=== PATIENT | female | born 1955 | race American Indian/Alaskan Native ===

== ENCOUNTER 2017-06-06 09:52 | Day surgery (SDC) | payer MEDICARE, OTHER ==
[2017-03-07 06:20] VITALS: BMI 25.1
[2017-06-06] MEDS ORDERED: Midazolam 2 MG/2 ML VIAL ONE (10:43)
[2017-06-06] MEDS ORDERED: Propofol 10 mg/ml Inj (20 ML) ONE (10:43)
[2017-06-06] MEDS ORDERED: ceFAZolin IV 2 gm in Dextrose 0 GM/0 ML BAG IVPB ONE ×2 (10:50→11:27)
[2017-06-06 10:54] VITALS: O2SAT 100
[2017-06-06] MEDS ORDERED: Lidocaine 1%/Epinephrine 1:100000 30 ml vial IJ STA (11:01)
[2017-06-06] MEDS ORDERED: Lactated Ringer's 1,000 ML IV ONE (11:06)
[2017-06-06] MEDS: Bupivacaine HCl 0.5% PF (10 ml) Inj ONE ×2 (11:07→11:40)
[2017-06-06] MEDS ORDERED: Bupivacaine HCl 0.5% PF (10 ml) Inj ONE (11:28)
[2017-06-06] MEDS: Lidocaine 1% Inj (20ml) ONE ×2 (11:40→11:59)
[2017-06-06 12:25] VITALS: BP 159/89; PULSE 60; RESP 18; TEMP 97
--- NOTE | 2017-06-06 13:31 | PCM.SURG1 ---
Surgeon's Initial Post Op Note - Surgeon's Notes Surgeon: Kerri Sculpture Instructor: Apolonia Shanks Pre-Operative Diagnosis: Left Thigh mass, R hip mass Operative Findings: see operative report Post-Operative Diagnosis: same Operation Performed: Excision of Left Thigh mass; Excision of Right Hip mass Specimen/Specimens Removed: left thigh mass; Right hip mass Estimated Blood Loss: EBL {In ML}: 10 Blood Products Given: N/A Drains Used: No Drains Post-Op Condition: Good Date of Surgery/Procedure: 06/06/17 Time of Surgery/Procedure: 13:30
--- NOTE | 2017-06-08 13:36 | OP ---
PROCEDURE DATE: 06/06/2017 PREOPERATIVE DIAGNOSES: 1. Left inner upper thigh mass. 2. Right hip skin tag. POSTOPERATIVE DIAGNOSES: 1. Left inner upper thigh mass. 2. Right hip skin tag. PROCEDURE DONE: 1. Excision of the left inner upper thigh mass, approximately 4 x 3 cm, pedunculated. 2. Excision of the skin tag of right hip. SURGEON: The procedure was done by Tashi carroll MD. FINANCE ADMIN: None. TYPE OF ANESTHESIA: Local anesthesia with monitored anesthesia. INTRAOPERATIVE FINDINGS: The patient had approximately 4 x 3 cm pedunculated mass of the left inner upper thigh and the patient also had a 1 x 1 cm right hip skin tag. ESTIMATED BLOOD LOSS: Around 10 mL. COMPLICATIONS: None. PATHOLOGY: 1. The left thigh pedunculated mass was sent for the pathology. 2. Right hip skin tag was sent for the pathology. DESCRIPTION OF PROCEDURE: On intraoperative steps, this 61-year-old female was diagnosed with a left thigh mass as well as a right hip skin tag and the patient was consented for the excision of the left thigh mass as well as the right hip skin tag. Brought to the OR, placed supine on the operating table. After monitored anesthesia, the left thigh as well as the right hip were prepped and draped in the usual sterile fashion. The local anesthesia was injected and elliptical incision was made surrounding the left thigh pedunculated mass of approximately 3 x 2 cm size. Upper and lower flap was created and then dissection was carried down deep in the subcutaneous tissue and the mass was completely excised and it was sent off the table for the pathology. The wound was irrigated and the wound was closed in 2 layers, subcu with a 2-0 Vicryl, skin with a 4-0 Monocryl. Dry sterile dressing was applied and now the elliptical incision was made surrounding the right hip skin tag and the skin tag was excised and wound was closed in 2 layers, subcu with a 2-0 Vicryl, skin with a 4-0 Monocryl. Dry sterile dressing was applied. The patient tolerated the procedure well. Count of the instrument and gauze was correct. There was no apparent complication. The patient was sent to the Postanesthesia Care Unit in stable condition. Tashi Manning MD [facility] # [id number]
== END 2017-06-06 13:20 | disposition home or self-care (01) ==
LOC: C.SDS 09:52
PROVIDERS: ATTEND Surgery Surgical Critical Care
DX: D23.72 Other benign neoplasm of skin of left lower limb, including hip (principal); L91.8 Other hypertrophic disorders of the skin; R22.9 Localized swelling, mass and lump, unspecified

== ENCOUNTER 2017-07-11 13:52 | Inpatient (IN) | payer MEDICARE, OTHER ==
[2017-07-11 13:52] VITALS: BMI 25.1
--- NOTE | 2017-07-11 15:21 | C.PDOC ---
History Of Present Illness 61 year old female presents to the ED referred by Dr. Ahumada for possible need for transfusion. Patient had blood work done on Sunday because she was c/o generalized weakness for a week. Patient was advised today to come to the ED but she does not know her blood values. Patient resumed taking epogen too it today and states she feels a little better. Patient has had prior transfusions due to her dialysis. Patient denies fever, chills, nausea, vomit, diarrhea, CP, SOB, headache. Time Seen by Provider: 07/11/17 15:16 Chief Complaint (Nursing): Abnormal Labs History Per: Patient History/Exam Limitations: no limitations Onset/Duration Of Symptoms: Days Current Symptoms Are (Timing): Still Present Reports Recently: Treated By A Physician () Recent travel outside of the [place] States: No Additional History Per: Patient Past Medical History Reviewed: Historical Data, Nursing Documentation, Vital Signs Vital Signs: Last Vital Signs Temp 98.5 F 07/11/17 14:47 Pulse 84 07/11/17 14:47 Resp 20 07/11/17 14:47 BP 148/79 07/11/17 14:47 Pulse Ox 100 07/11/17 16:56 - Medical History PMH: Anemia, Diabetes, HTN, Hypercholesterolemia, Hyperthyroidism, End Stage Renal Disease (peritoneal dialysis daily), Chronic Kidney Disease Surgical History: No Surg Hx - [facility] Procedures BREAST DX PROCEDURE NEC (01/20/14) CENTRAL VENOUS CATHETER PLACEMENT WITH GUIDANCE (03/10/13) COLONOSCOPY (09/02/14) CREATE CUTANPERITON FIST (03/10/13) DX ULTRASOUND-THORAX NEC (02/24/14) HEMODIALYSIS (03/10/13) LOCAL EXCIS BREAST LES (02/24/14) MYRINGOTOMY W INTUBATION (02/10/15) PACKED CELL TRANSFUSION (03/10/13) PERCUTAN NEEDLE BIOPSY OF BREAST (01/20/14) Family History: States: Hypertension - Social History Hx Tobacco Use: No Hx Alcohol Use: No Hx Substance Use: No - Immunization History Hx Tetanus Toxoid Vaccination: No Hx Influenza Vaccination: Yes Hx Pneumococcal Vaccination: Yes Review Of Systems Constitutional: Positive for: Weakness. Negative for: Fever, Chills Cardiovascular: Negative for: Chest Pain, Palpitations Respiratory: Negative for: Cough, Shortness of Breath Gastrointestinal: Negative for: Nausea, Vomiting, Abdominal Pain Skin: Negative for: Rash Neurological: Negative for: Weakness, Numbness, Headache, Dizziness Physical Exam - Physical Exam Appears: Non-toxic, No Acute Distress Skin: Normal Color, Warm, Dry Head: Atraumatic, Normacephalic Eye(s): bilateral: Normal Inspection Nose: No Discharge, No Deformity Oral Mucosa: Moist Neck: Normal ROM, Supple Chest: Symmetrical Cardiovascular: Rhythm Regular, No Murmur Respiratory: Normal Breath Sounds, No Rales, No Rhonchi, No Wheezing Gastrointestinal/Abdominal: Soft, No Tenderness, No Guarding, No Rebound Extremity: Normal ROM, No Pedal Edema, No Calf Tenderness, No Deformity, No Swelling Neurological/Psych: Oriented x3, Normal Speech, Normal Cognition Gait: Steady ED Course And Treatment - Laboratory Results Result Diagrams: 07/11/17 15:38 07/11/17 16:13 ECG: Interpreted By Me ECG Rhythm: Sinus Rhythm ECG Interpretation: Normal Interpretation Of ECG: QTC 483 Rate From EC O2 Sat by Pulse Oximetry: 100 (On RA) Pulse Ox Interpretation: Normal - Radiology CXR: Interpreted by Me CXR Interpretation: Yes: No Acute Disease Progress - Re-Evaluation Re-evaluation Note: 07/11/17 16:49 D/W DR ESCALANTE AWARE OF ER FINDINGS. REQUESTS CONSULT DR AHUMADA FOR COORDINATE OF PERITONEAL HD AND TRANSFUSION. PS LAST PERITONEAL HD 07/09, STATES DID NOT DO IT DUE TO LAXATIVE USE. CONSULT DR MEEHAN IF NEEDED 07/11/17 17:01 D/W DR AHUMADA AWARE OF ER FINDINGS. RECOMMENDS 1U PRBC MAX. PT TO RESUME HD ROUTINE UPON DC HOME. D/W DR HEMPHILL, AWARE OF DR AHUMADA RECOMMENDATION - Data Reviewed Data Reviewed: Lab, Diagnostic imaging, EKG, Old records Medical Decision Making Medical Decision Making: Impression : possible blood transfusion 16:53 - Dr. Ahumada was called Disposition Counseled Patient/Family Regarding: Studies Performed, Diagnosis - Disposition Disposition: HOSPITALIZED Disposition Time: 16:54 Condition: STABLE Instructions: Weakness (ED) Forms: [facility] ([place]ese) - POA Present On Arrival: None - Clinical Impression Clinical Impression: Severe anemia, Generalized weakness, ESRD (end stage renal disease) - Scribe Statement The provider has reviewed the documentation as recorded by the Scribe Severiano John All medical record entries made by the Scribe were at my direction and personally dictated by me. I have reviewed the chart and agree that the record accurately reflects my personal performance of the history, physical exam, medical decision making, and the department course for this patient. I have also personally directed, reviewed, and agree with the discharge instructions and disposition. Decision To Admit - Pt Status Changed To: Hospital Disposition Of: Observation - . Bed Request Type: Regular Admitting Physician: Kartik Hemphill Patient Diagnosis: Severe anemia, Generalized weakness, ESRD (end stage renal disease)
[2017-07-11 15:46] LABS: MEAN CELL VOLUME 87.2 fL (81.0-99.0); MEAN CORPUSCULAR HEMOGLOBIN 28.7 pg (27.0-31.0); MEAN CORPUSCULAR HGB CONC 32.9 g/dL (33.0-37.0); MEAN PLATELET VOLUME 7.7 fL (7.2-11.7); RBC 2.04 Mil/uL (3.80-5.20); RED CELL DISTRIBUTION WIDTH 17.1 % (11.5-14.5)
[2017-07-11 15:53] LABS: HEMOGLOBIN 5.9 g/dL (11.0-16.0); WHITE BLOOD COUNT 11.1 K/uL (4.8-10.8)
[2017-07-11 16:36] LABS: CALCIUM 9.5 mg/dl (8.6-10.4)
--- NOTE | 2017-07-11 17:24 | RAD ---
HISTORY: MED CLEAR COMPARISON: Chest x-ray performed 11/03/16 TECHNIQUE: Chest, one view. FINDINGS: LUNGS: No focal consolidation. Scattered nodular densities may reflect granulomas versus nodules versus prominent vessels on end. Please note that chest x-ray has limited sensitivity for the detection of pulmonary masses. PLEURA: No significant pleural effusion identified. No definite pneumothorax . CARDIOVASCULAR: Cardiomegaly. Dense atherosclerotic calcifications of the aortic knob. OSSEOUS STRUCTURES: Degenerative changes. VISUALIZED UPPER ABDOMEN: Unremarkable. OTHER FINDINGS: None. IMPRESSION: Cardiomegaly. Dense atherosclerotic calcifications of the aortic knob. No focal consolidation, significant pleural effusion, or definite pneumothorax identified. Tiny scattered nodular densities may reflect nodules, granulomas, prominent vessels on end.
[2017-07-12 05:33] LABS: BASO % 0.3 % (0.0-2.0); EOS # 0.3 K/uL (0.0-0.7); LYMPH # 1.9 K/uL (1.0-4.3); LYMPH % 19.9 % (20.0-40.0); MEAN CELL VOLUME 87.7 fL (81.0-99.0); MEAN CORPUSCULAR HEMOGLOBIN 29.9 pg (27.0-31.0); MEAN CORPUSCULAR HGB CONC 34.1 g/dL (33.0-37.0); MEAN PLATELET VOLUME 7.8 fL (7.2-11.7); MONO # 1.1 K/uL (0.0-0.8); MONO % 11.5 % (0.0-10.0); NEUT # 6.2 K/uL (1.8-7.0); NEUT % 65.3 % (50.0-75.0); NRBC % 0.5 % (0.0-2.0); RBC 2.18 Mil/uL (3.80-5.20); RED CELL DISTRIBUTION WIDTH 15.8 % (11.5-14.5); WHITE BLOOD COUNT 9.6 K/uL (4.8-10.8)
[2017-07-12 05:56] LABS: HEMOGLOBIN 6.5 g/dL (11.0-16.0)
[2017-07-12] MEDS ORDERED: [UNRECOGNIZED DRUG - OTHER] PO SCH (10:00)
[2017-07-12] MEDS ORDERED: Sodium Citrate/Citric Acid 15 ml Sol PO PRN (10:00)
[2017-07-12] MEDS ORDERED: SODIUM BICARBONATE PO SCH (10:00)
--- NOTE | 2017-07-12 10:07 | CP.PCM.CON ---
History of Present Illness - History of Present Illness History of Present Illness: 61 year old female presents to the ED referred by Dr. Perkins for possible need for transfusion. Patient had blood work done on Sunday because she was c/o generalized weakness for a week. Patient was advised today to come to the ED but she does not know her blood values. Patient resumed taking epogen too it today and states she feels a little better. Patient has had prior transfusions due to her dialysis. Patient denies fever, chills, nausea, vomit, diarrhea, CP, SOB, headache. PMH: HTN NEPHROSCLEROSIS DM 2 SEC HPT PSH: PD CATH INSERTION Received 1 unit prbc blood transfusion in ER Needs resumption of PD and PIEDAD restart Review of Systems - Review of Systems All systems: reviewed and no additional remarkable complaints except - Constitutional Constitutional: Lethargy, Weakness - EENT Eyes: absent: As Per HPI, Blind Spots, Blurred Vision, Change in Vision, Decreased Night Vision, Diplopia, Discharge, Dry Eye, Exophthalmos, Floaters, Irritation, Itchy Eyes, Loss of Peripheral Vision, Pain, Photophobia, Requires Corrective Lenses, Sees Flashes, Spots in Vision, Tunnel Vision, Other Visual Disturbances, Loss of Vision, Other Ears: absent: As Per HPI, Decreased Hearing, Ear Discharge, Ear Pain, Tinnitus, Abnormal Hearing, Disequilibrium, Dizziness, Other Nose/Mouth/Throat: absent: As Per HPI, Epistaxis, Nasal Congestion, Nasal Discharge, Nasal Obstruction, Nasal Trauma, Nose Pain, Post Nasal Drip, Sinus Pain, Sinus Pressure, Bleeding Gums, Change in Voice, Dental Pain, Dry Mouth, Dysphagia, Halitosis, Hoarsness, Lip Swelling, Mouth Lesions, Mouth Pain, Odynophagia, Sore Throat, Throat Swelling, Tongue Swelling, Facial Pain, Neck Pain, Neck Mass, Other - Cardiovascular Cardiovascular: absent: As Per HPI, Acrocyanosis, Chest Pain, Chest Pain at Rest , Chest Pain with Activity, Claudication, Diaphoresis, Dyspnea, Dyspnea on Exertion, Edema, Irregular Heart Rhythm, Pain Radiating to Arm/Neck/Jaw, Leg Edema, Leg Ulcers, Lightheadedness, Orthopnea, Palpitations, Paroxysmal Nocturnal Dyspnea, Pedal Edema, Radiating Pain, Rapid Heart Rate, Slow Heart Rate, Syncope, Other - Respiratory Respiratory: absent: As Per HPI, Cough, Dyspnea, Hemoptysis, Dyspnea on Exertion , Wheezing, Snoring, Stridor, Pain on Inspiration, Chest Congestion, Excessive Mucous Production, Change in Mucous Color, Pain with Coughing, Other - Gastrointestinal Gastrointestinal: Constipation - Musculoskeletal Musculoskeletal: Muscle Cramps, Muscle Weakness, Myalgias - Neurological Neurological: Weakness Past Patient History - Past Medical History & Family History Past Medical History?: Yes Pertinent Family History: aunt exp- was on dialysis - Past Social History Smoking Status: Never Smoked Chewing Tobacco Use: No Cigar Use: No Alcohol: None Drugs: Denies Home Situation {Lives}: With Family - CARDIAC Hx Hypercholesterolemia: Yes Hx Hypertension: Yes - PULMONARY Hx Respiratory Disorders: No - NEUROLOGICAL Hx Neurological Disorder: No - HEENT Hx HEENT Problems: No Other/Comment: otitis media - RENAL Hx Chronic Kidney Disease: Yes - ENDOCRINE/METABOLIC Hx Hyperthyroidism: Yes - HEMATOLOGICAL/ONCOLOGICAL Hx Anemia: Yes - INTEGUMENTARY Hx Dermatological Problems: Yes Other/Comment: HX: LEFT THIGH MASS - MUSCULOSKELETAL/RHEUMATOLOGICAL Hx Musculoskeletal Disorders: Yes Other/Comment: HX:HAMMER TOES 2ND, 3RD LEFT FOOT - GASTROINTESTINAL Hx Gastrointestinal Disorders: No Other/Comment: peritoneal dialysis - GENITOURINARY/GYNECOLOGICAL Hx Genitourinary Disorders: No Other/Comment: renal failure - PSYCHIATRIC Hx Substance Use: No - SURGICAL HISTORY Other/Comment: left breast, left foot. tubes both ears. HX: ARTHROPLASTY 2ND AND 3RD LEFT TOES - ANESTHESIA Hx Anesthesia: Yes Hx Anesthesia Reactions: No Hx Malignant Hyperthermia: No Meds Allergies/Adverse Reactions: Allergies Allergy/AdvReac Type Severity Reaction Status Date / Time No Known Allergies Allergy Verified 07/11/17 14:49 - Medications Medications: Current Medications Calcitriol (Rocaltrol) 0.25 mcg PO DAILY [facility] Calcium Acetate (Phoslo) 667 mg PO TID [facility] Last Admin: 07/12/17 09:36 Dose: 667 mg Cinacalcet (Sensipar) 60 mg PO DAILY [facility] Last Admin: 07/12/17 09:32 Dose: 60 mg Citric Acid/Sodium Citrate (Bicitra 334 Mg/5 Ml-500 Mg) 15 ml PO BID PRN PRN Reason: Heartburn Last Admin: 07/12/17 09:32 Dose: 15 ml Folic Acid (Folic Acid) 1 mg PO DAILY [facility] Last Admin: 07/12/17 09:32 Dose: 1 mg Hydralazine HCl (Apresoline) 50 mg PO BID [facility] Last Admin: 07/12/17 09:31 Dose: 50 mg Vitamin B Complex/Vit C/Folic Acid (Nephro-Merle) 1 tab PO DAILY [facility] Zolpidem Tartrate (Ambien) 5 mg PO HS PRN PRN Reason: Insomnia Physical Exam - Constitutional Appears: No Acute Distress, Chronically Ill - Head Exam Head Exam: ATRAUMATIC, NORMAL INSPECTION - Eye Exam Eye Exam: EOMI, Normal appearance - Neck Exam Neck exam: Positive for: Normal Inspection. Negative for: Tenderness - Respiratory Exam Respiratory Exam: Clear to Auscultation Bilateral, NORMAL BREATHING PATTERN - Cardiovascular Exam Cardiovascular Exam: REGULAR RHYTHM, +S1 - GI/Abdominal Exam GI & Abdominal Exam: Soft. absent: Tenderness - Extremities Exam Extremities exam: Positive for: normal inspection. Negative for: tenderness - Neurological Exam Neurological exam: CN II-XII Intact, Oriented x3 - Psychiatric Exam Psychiatric exam: Normal Affect - Skin Skin Exam: Dry, Warm Results - Vital Signs Recent Vital Signs: Last Vital Signs Temp 98.1 F 07/12/17 07:38 Pulse 85 07/12/17 07:38 Resp 18 07/12/17 07:38 BP 170/80 H 07/12/17 07:38 Pulse Ox 96 07/12/17 07:38 - Labs Result Diagrams: 07/12/17 05:22 07/11/17 16:13 Labs: Laboratory Results - last 24 hr 07/11/17 07/11/17 07/11/17 15:38 16:13 16:13 WBC 11.1 H D RBC 2.04 L Hgb 5.9 L* D Hct 17.8 L MCV 87.2 MCH 28.7 MCHC 32.9 L RDW 17.1 H Plt Count 234 MPV 7.7 Neut % (Auto) Lymph % (Auto) [place] % (Auto) Eos % (Auto) Baso % (Auto) Neut # Lymph # [place] # Eos # Baso # Sodium 132 Potassium 4.4 Chloride 90 L Carbon Dioxide 25 Anion Gap 21 H BUN 61 H Creatinine 18.3 H* Est GFR ( Amer) 2 Est GFR (Non-Af Amer) 2 Random Glucose 83 Calcium 9.5 Iron Vitamin B12 Stool Occult Blood Blood Type O POSITIVE Antibody Screen Negative 07/11/17 07/12/17 07/12/17 17:13 05:22 05:22 WBC 9.6 RBC 2.18 L Hgb 6.5 L* Hct 19.2 L MCV 87.7 MCH 29.9 MCHC 34.1 RDW 15.8 H Plt Count 201 MPV 7.8 Neut % (Auto) 65.3 Lymph % (Auto) 19.9 L [place] % (Auto) 11.5 H Eos % (Auto) 3.0 Baso % (Auto) 0.3 Neut # 6.2 Lymph # 1.9 [place] # 1.1 H Eos # 0.3 Baso # 0.0 Sodium Potassium Chloride Carbon Dioxide Anion Gap BUN Creatinine Est GFR ( Amer) Est GFR (Non-Af Amer) Random Glucose Calcium Iron 112 Vitamin B12 Stool Occult Blood Negative Blood Type Antibody Screen 07/12/17 05:22 WBC RBC Hgb Hct MCV MCH MCHC RDW Plt Count MPV Neut % (Auto) Lymph % (Auto) [place] % (Auto) Eos % (Auto) Baso % (Auto) Neut # Lymph # [place] # Eos # Baso # Sodium Potassium Chloride Carbon Dioxide Anion Gap BUN Creatinine Est GFR ( Amer) Est GFR (Non-Af Amer) Random Glucose Calcium Iron Vitamin B12 > 1000 H Stool Occult Blood Blood Type Antibody Screen Assessment & Plan (1) Secondary hyperparathyroidism Status: Acute (2) ESRD (end stage renal disease) Status: Acute - Assessment and Plan (Free Text) Plan: Resume PD restart ESAs check iron stores
--- NOTE | 2017-07-12 12:35 | CARD ---
APPROVED REPORT EKG Measurement Heart [id number] <Conclusion> Normal sinus rhythm Prolonged QT Abnormal ECG
--- NOTE | 2017-07-12 13:38 | CP.PCM.PN ---
Subjective - Date & Time of Evaluation Date of Evaluation: 07/12/17 Time of Evaluation: 12:15 - Subjective Subjective: NOTIFIED BY PRIMARY RN PAT THAT PT'S SBP 200. REVIEWED VITALS FROM THIS MORNING AND THIS IS NOT DOCUMENTED YET. PT CURRENTLY TAKING HYDRALAZINE PO, WHICH SHE IS NOT TOLERATING AT THIS TIME. PT ALSO SEEN BY DR. AHUMADA SHE IS ON PD; HE IS NOT RECOMMENDING FURTHER TRANSFUSION YET; TO RESTART HER PD; PT WAITING FOR FAMILY TO BRING HER EQUIPMENT FROM HOME. HGB TODAY 6.5; REVIEWED PREVIOUS LABS AND THIS IS THE FIRST TIME PT HAS HGB SO LOW. I LEFT MESSAGE FOR DR. CHOWDHURY REGARDING ADDITIONAL BP MEDICATIONS AND POSS HEMATOLOGY CONSULT. WILL F/U. Objective - Vital Signs/Intake and Output Vital Signs (last 24 hours): Temp Pulse Resp BP Pulse Ox 98.1 F 85 18 170/80 H 96 07/12/17 07:38 07/12/17 07:38 07/12/17 07:38 07/12/17 07:38 07/12/17 07:38 - Medications Medications: Current Medications Calcitriol (Rocaltrol) 0.25 mcg PO DAILY [facility] Calcium Acetate (Phoslo) 667 mg PO TID [facility] Last Admin: 07/12/17 09:36 Dose: 667 mg Cinacalcet (Sensipar) 60 mg PO DAILY [facility] Last Admin: 07/12/17 09:32 Dose: 60 mg Citric Acid/Sodium Citrate (Bicitra 334 Mg/5 Ml-500 Mg) 15 ml PO BID PRN PRN Reason: Heartburn Last Admin: 07/12/17 09:32 Dose: 15 ml Epoetin Raheem (Procrit) 10,000 unit SC TTS [facility] Folic Acid (Folic Acid) 1 mg PO DAILY [facility] Last Admin: 07/12/17 09:32 Dose: 1 mg Hydralazine HCl (Apresoline) 50 mg PO BID [facility] Last Admin: 07/12/17 09:31 Dose: 50 mg Vitamin B Complex/Vit C/Folic Acid (Nephro-Merle) 1 tab PO DAILY [facility] Zolpidem Tartrate (Ambien) 5 mg PO HS PRN PRN Reason: Insomnia - Labs Labs: 07/12/17 05:22 07/11/17 16:13
--- NOTE | 2017-07-12 15:14 | PCM.RRT ---
C[employer] STORAGE WORKER Nurses Assessment - Situation Date: 07/12/17 Time COLD STORAGE WORKER was called: 13:16 COLD STORAGE WORKER Responder Arrival Time:: 13:18 COLD STORAGE WORKER Location:: I ICU COLD STORAGE WORKER Reason for Call: Hypertension COLD STORAGE WORKER Called By: RN - IV IV Inserted during COLD STORAGE WORKER?: No IV Fluids Initiated During COLD STORAGE WORKER?: no, hep lock in place - Respiratory COLD STORAGE WORKER Delivery Method: Room Air Received Nebulizer Treatments: No Was the Patient Ventilated with Bag/Mask 100% O2?: No Secretions Suctioned?: No Was the Patient Intubated?: No Was the Patient Placed on a Ventilator?: No - Medication Medications Administered During COLD STORAGE WORKER: hydralazine 10mg IV push x 2 doses - Diagnostic Test Ordered EKG: No Chest X-Ray: No CT Scan: No CPR started during COLD STORAGE WORKER?: No - Vital Signs Vital Signs: Rapid Response Vital Sign Blood Pressure 229/116 Pulse Rate 92 Respiratory Rate 18 Temperature 97.9 F Oxygen Saturation 95 - Time COLD STORAGE WORKER Ended Time COLD STORAGE WORKER Ended: 15:05 - Vital Signs at end of COLD STORAGE WORKER Vital Signs at end of COLD STORAGE WORKER: Rapid Response End Vital Sign Blood Pressure 190/92 Pulse Rate 80 Respiratory Rate 18 Temperature 97.8 F O2 Sat by Pulse Oximetry 96 - Recommendations Notifications: Attending Physician I.Reason for COLD STORAGE WORKER - A) Acute Change in Patient: (Select all that apply): Staff member or family is worried about patient - Neurological Status (Select all that apply): Alert, Responsive, Oriented, Verbal, Follows Commands - Respiratory Oxygen Delivery Method: Room Air - Constitutional Appears: Well, No Acute Distress - Head Head Exam: ATRAUMATIC, NORMOCEPHALIC - Eyes Eye Exam: EOMI, Normal appearance - Respiratory Exam Respiratory Exam: Clear to Ausculation Bilateral, NORMAL BREATHING PATTERN. absent: Rales, Rhonchi, Wheezes - Cardiovascular Exam Cardiovascular Exam: REGULAR RHYTHM, +S1, +S2. absent: Tachycardia - GI/Abdominal Exam GI & Abdominal Exam: Soft, Normal Bowel Sounds. absent: Distended, Tenderness Additional comments: PD dialysis catheter site on right side of the abdomen. No evidence of infection noted. - Neurological Exam Neurological Exam: Alert, Awake, CN II-XII Intact, Oriented x3 - Extremities Exam Extremities Exam: absent: Tenderness Plan - Assessment of Findings&Treatment Plan This is a 61 year old lady on daily peritoneal dialysis who has missed 2 days of dialysis after being admitted to the hospital. COLD STORAGE WORKER called for hypertensive episode as noted above. Patient with no acute distress. Denies headache, changes in vision, chest pain, dyspnea. Patient's brought the equipment for peritoneal dialysis but forgot some of the peripheral devices. He will go retrieve them. Patient given 2 pushes of Hydralazine 10 mg IV. Blood pressure reduced since the start of the rapid. Admitting attending Dr. Hemphill was notified of events and stated that he will take over from here as of 15:05.
[2017-07-12 17:22] LABS: FOLATE > 20.0 ng/mL
[2017-07-12] MEDS: Multivitamin Vitamin B Complex (Nephro-Vite) Tab PO SCH (18:12)
--- NOTE | 2017-07-12 19:00 | CP.PCM.CON ---
History of Present Illness - History of Present Illness History of Present Illness: ASked to see pt for anemia. Pt reports was on epogen til 3 months ago. On epogen, Hb was 12. Off epogen, Hb is going down. To 5-6. Denies SOB, fever, abdom pain, melena, RB. Occ constip Colonsocopy 2014- neg Sister is present Review of Systems - Constitutional Constitutional: Fatigue. absent: Fever - EENT Eyes: absent: Photophobia Nose/Mouth/Throat: absent: Lip Swelling - Cardiovascular Cardiovascular: absent: Dyspnea, Palpitations - Respiratory Respiratory: absent: Hemoptysis, Wheezing - Gastrointestinal Gastrointestinal: Constipation. absent: Abdominal Pain, Diarrhea, Hematemesis, Hematochezia, Loose Stools, Melena, Nausea, Vomiting - Genitourinary Genitourinary: absent: Hematuria - Musculoskeletal Musculoskeletal: absent: Muscle Cramps - Integumentary Integumentary: absent: Jaundice - Neurological Neurological: absent: Convulsions Past Patient History - Past Medical History & Family History Past Medical History?: Yes - Past Social History Smoking Status: Former Smoker - CARDIAC Hx Hypercholesterolemia: Yes Hx Hypertension: Yes - PULMONARY Hx Respiratory Disorders: No - NEUROLOGICAL Hx Neurological Disorder: No - HEENT Hx HEENT Problems: No Other/Comment: otitis media - RENAL Hx Chronic Kidney Disease: Yes Type of Dialysis Access: peritoneal dialysis Date of Last Dialysis Treatment: 07/09/17 Hx Renal Failure: Yes - ENDOCRINE/METABOLIC Hx Diabetes Mellitus Type 2: Yes Hx Hyperthyroidism: Yes Other/Comment: states thyroid problem is under control without medication - HEMATOLOGICAL/ONCOLOGICAL Hx Anemia: Yes Hx Blood Transfusions: Yes - INTEGUMENTARY Hx Dermatological Problems: Yes Other/Comment: HX: LEFT THIGH MASS surgically removed. - MUSCULOSKELETAL/RHEUMATOLOGICAL Hx Falls: No - GASTROINTESTINAL Hx Gastrointestinal Disorders: No Other/Comment: peritoneal dialysis - GENITOURINARY/GYNECOLOGICAL Hx Genitourinary Disorders: No Other/Comment: renal failure - PSYCHIATRIC Hx Psychophysiologic Disorder: No Hx Substance Use: No - SURGICAL HISTORY Hx Breast Biopsy: Yes (fatty tissue) Hx Vascular Surgery: Yes (stent placement rt leg) Other/Comment: left breast, left foot. tubes both ears. HX: ARTHROPLASTY 2ND AND 3RD LEFT TOES. Peritoneal dialysis catheter placement 5 years ago - ANESTHESIA Hx Anesthesia: Yes Hx Anesthesia Reactions: No Hx Malignant Hyperthermia: No Meds Allergies/Adverse Reactions: Allergies Allergy/AdvReac Type Severity Reaction Status Date / Time No Known Allergies Allergy Verified 07/11/17 14:49 - Medications Medications: Current Medications Calcitriol (Rocaltrol) 0.25 mcg PO DAILY [facility] Last Admin: 07/12/17 18:12 Dose: 0.25 mcg Calcium Acetate (Phoslo) 667 mg PO TID [facility] Last Admin: 07/12/17 18:13 Dose: 667 mg Cinacalcet (Sensipar) 60 mg PO DAILY [facility] Last Admin: 07/12/17 09:32 Dose: 60 mg Citric Acid/Sodium Citrate (Bicitra 334 Mg/5 Ml-500 Mg) 15 ml PO BID PRN PRN Reason: Heartburn Last Admin: 07/12/17 09:32 Dose: 15 ml Epoetin Raheem (Procrit) 10,000 unit SC TTS [facility] Folic Acid (Folic Acid) 1 mg PO DAILY [facility] Last Admin: 07/12/17 09:32 Dose: 1 mg Hydralazine HCl (Apresoline) 50 mg PO BID [facility] Last Admin: 07/12/17 18:12 Dose: 50 mg Metoprolol Tartrate (Lopressor) 50 mg PO DAILY [facility] Vitamin B Complex/Vit C/Folic Acid (Nephro-Merle) 1 tab PO DAILY [facility] Last Admin: 07/12/17 18:12 Dose: 1 tab Zolpidem Tartrate (Ambien) 5 mg PO HS PRN PRN Reason: Insomnia Physical Exam - Constitutional Appears: Well - Respiratory Exam Respiratory Exam: Clear to Auscultation Bilateral - Cardiovascular Exam Cardiovascular Exam: RRR - GI/Abdominal Exam GI & Abdominal Exam: Normal Bowel Sounds, Soft. absent: Distended, Guarding, Mass, Rebound, Tenderness - Extremities Exam Extremities exam: Negative for: calf tenderness - Neurological Exam Neurological exam: Alert, Oriented x3 Results - Vital Signs Recent Vital Signs: Last Vital Signs Temp 98 F 07/12/17 15:50 Pulse 90 07/12/17 13:15 Resp 18 07/12/17 13:15 BP 229/116 H 07/12/17 13:15 Pulse Ox 96 07/12/17 13:15 - Labs Result Diagrams: 07/12/17 05:22 07/11/17 16:13 Labs: Laboratory Results - last 24 hr 07/11/17 07/12/17 07/12/17 16:13 05:22 05:22 WBC 9.6 RBC 2.18 L Hgb 6.5 L* Hct 19.2 L MCV 87.7 MCH 29.9 MCHC 34.1 RDW 15.8 H Plt Count 201 MPV 7.8 Neut % (Auto) 65.3 Lymph % (Auto) 19.9 L Spencer % (Auto) 11.5 H Eos % (Auto) 3.0 Baso % (Auto) 0.3 Neut # 6.2 Lymph # 1.9 Spencer # 1.1 H Eos # 0.3 Baso # 0.0 Retic Count Iron 112 % Saturation Ferritin Vitamin B12 Folate Blood Type O POSITIVE Antibody Screen Negative 07/12/17 07/12/17 07/12/17 05:22 15:57 15:57 WBC RBC Hgb Hct MCV MCH MCHC RDW Plt Count MPV Neut % (Auto) Lymph % (Auto) Spencer % (Auto) Eos % (Auto) Baso % (Auto) Neut # Lymph # Spencer # Eos # Baso # Retic Count Iron % Saturation 40 Ferritin 915.0 Vitamin B12 > 1000 H Folate Blood Type Antibody Screen 07/12/17 07/12/17 15:57 15:57 WBC RBC Hgb Hct MCV MCH MCHC RDW Plt Count MPV Neut % (Auto) Lymph % (Auto) Spencer % (Auto) Eos % (Auto) Baso % (Auto) Neut # Lymph # Spencer # Eos # Baso # Retic Count 3.3 H Iron % Saturation Ferritin Vitamin B12 > 1000 H Folate > 20.0 Blood Type Antibody Screen Assessment & Plan (1) Constipated Status: Acute (2) ESRD (end stage renal disease) Assessment and Plan: PD. Cr-18 Status: Acute (3) Severe anemia Assessment and Plan: Likely CRF. Better when on epogen. HAd colonsocopy 2014. Doubt ulcer, AVM. Pt wants to follow Hb and no EGD. REC: Protonix, check Hbs, check stool OB. Status: Acute
--- NOTE | 2017-07-13 08:34 | HP ---
HISTORY OF PRESENT ILLNESS: This is a 61-year-old female with history of end-stage renal disease, on peritoneal dialysis, was admitted for generalized weakness and found to have hemoglobin of 5 on admission. The patient was taking Epogen that was stopped during the last 3 months because of the patient's hemoglobin was around 12. The patient states that lately she has been experiencing generalized fatigue and shortness of breath for the minimal exertion. There is no symptom suggestive of any blood loss through GI or tract. The patient denied to have also any change in the color of the urine or the stool. Other review of systems is negative. ALLERGIES: No known allergy. MEDICATIONS: As per MAR. SOCIAL HISTORY: No history of smoking, EtOH or substance abuse. FAMILY HISTORY: Noncontributory. PAST MEDICAL HISTORY: Hypertension; type 2 diabetes mellitus; end-stage renal disease, on peritoneal dialysis. PHYSICAL EXAMINATION GENERAL: The patient is in bed comfortable at the time of this examination. VITAL SIGNS: Blood pressure 189/88, temperature 97.6, respiratory rate 18 and pulse 90. HEENT: Pupils equal, reactive to light. Pale mucosa of the conjunctivae. NECK: Supple. No JVD. No carotid bruit. No lymph node. No thyromegaly. CHEST AND LUNGS: Bilateral symmetrical expansion. Good air exchange. No rales, no rhonchi. CARDIOVASCULAR: PMI not localized. S1, S2. No additional sounds. ABDOMEN: Normoactive bowel sounds. No tenderness. No organomegaly. No masses. EXTREMITIES: No cyanosis, no clubbing, no edema. BENDER HELPER: Alert, awake, oriented x2. No neurological deficit could be appreciated. ASSESSMENT: 1. Severe anemia of chronic disease. 2. End-stage renal disease, on peritoneal dialysis. 3. Uncontrolled hypertension. PLAN: 1. Continue peritoneal dialysis. 2. Resume the patient's antihypertensive medications, renal consult and follow the recommendations. Kartik Hemphill MD
[2017-07-13 09:00] LABS: HEMOGLOBIN 6.9 g/dL (11.0-16.0); MEAN CELL VOLUME 88.1 fL (81.0-99.0); MEAN CORPUSCULAR HEMOGLOBIN 30.3 pg (27.0-31.0); MEAN CORPUSCULAR HGB CONC 34.4 g/dL (33.0-37.0); MEAN PLATELET VOLUME 7.6 fL (7.2-11.7); RBC 2.26 Mil/uL (3.80-5.20); RED CELL DISTRIBUTION WIDTH 15.9 % (11.5-14.5); WHITE BLOOD COUNT 8.9 K/uL (4.8-10.8)
[2017-07-13 09:24] LABS: CALCIUM 9.8 mg/dl (8.6-10.4)
[2017-07-13] MEDS: Multivitamin Vitamin B Complex (Nephro-Vite) Tab PO SCH (10:22)
--- NOTE | 2017-07-13 12:14 | CP.PCM.PN ---
Subjective - Date & Time of Evaluation Date of Evaluation: 07/13/17 Time of Evaluation: 12:12 - Subjective Subjective: CC: anemia Stool OB negative Normal Iron studies No overt GI bleeding or abdominal pain Objective - Vital Signs/Intake and Output Vital Signs (last 24 hours): Temp Pulse Resp BP Pulse Ox 98.5 F 117 H 18 161/77 H 100 07/13/17 08:00 07/13/17 08:33 07/13/17 08:00 07/13/17 08:00 07/13/17 06:00 Intake and Output: 07/13/17 07/13/17 06:59 18:59 Intake Total 150 460 Output Total 400 Balance -250 460 - Medications Medications: Current Medications Calcitriol (Rocaltrol) 0.25 mcg PO DAILY [facility] Last Admin: 07/13/17 10:22 Dose: 0.25 mcg Calcium Acetate (Phoslo) 667 mg PO TID [facility] Last Admin: 07/13/17 10:22 Dose: 667 mg Cinacalcet (Sensipar) 60 mg PO DAILY [facility] Last Admin: 07/13/17 10:28 Dose: 60 mg Citric Acid/Sodium Citrate (Bicitra 334 Mg/5 Ml-500 Mg) 15 ml PO BID PRN PRN Reason: Heartburn Last Admin: 07/12/17 09:32 Dose: 15 ml Epoetin Raheem (Procrit) 10,000 unit SC [facility] Folic Acid (Folic Acid) 1 mg PO DAILY [facility] Last Admin: 07/13/17 10:22 Dose: 1 mg Hydralazine HCl (Apresoline) 50 mg PO BID [facility] Last Admin: 07/13/17 10:22 Dose: 50 mg Metoprolol Tartrate (Lopressor) 50 mg PO DAILY [facility] Last Admin: 07/13/17 10:22 Dose: 50 mg Vitamin B Complex/Vit C/Folic Acid (Nephro-Merle) 1 tab PO DAILY [facility] Last Admin: 07/13/17 10:22 Dose: 1 tab Zolpidem Tartrate (Ambien) 5 mg PO HS PRN PRN Reason: Insomnia - Labs Labs: 07/13/17 08:55 07/13/17 08:55 - Constitutional Appears: Well, No Acute Distress - Head Exam Head Exam: NORMOCEPHALIC - Respiratory Exam Respiratory Exam: NORMAL BREATHING PATTERN - Cardiovascular Exam Cardiovascular Exam: REGULAR RHYTHM - GI/Abdominal Exam GI & Abdominal Exam: Soft. absent: Tenderness Assessment and Plan (1) ESRD (end stage renal disease) Assessment & Plan: Dialysis Status: Acute (2) Severe anemia Assessment & Plan: Secondary to chronic renal disease Colonoscopy done 2014 No immediate plans for EGD or Colonoscopy Status: Acute
[2017-07-13] MEDS ORDERED: Magnesium Hydroxide Susp 30 ml UD PO ONE (13:29)
[2017-07-13] MEDS ORDERED: DiphenhydrAMINE 12.5 mg/5 ml LIQ UD (5 ml) PO ONE (13:32)
--- NOTE | 2017-07-13 14:05 | CP.PCM.PN ---
Subjective - Date & Time of Evaluation Date of Evaluation: 07/13/17 Time of Evaluation: 14:02 - Subjective Subjective: PD ongoing- doing well Did not receive ordered EPO 07/12- will change to [facility] schedule c/o constipation Seen by GI- felt to have anemia related to CKD no other complaint Objective - Vital Signs/Intake and Output Vital Signs (last 24 hours): Temp Pulse Resp BP Pulse Ox 98.5 F 117 H 18 161/77 H 100 07/13/17 12:00 07/13/17 08:33 07/13/17 08:00 07/13/17 08:00 07/13/17 06:00 Intake and Output: 07/13/17 07/13/17 06:59 18:59 Intake Total 150 460 Output Total 400 Balance -250 460 - Medications Medications: Current Medications Calcitriol (Rocaltrol) 0.25 mcg PO DAILY [facility] Last Admin: 07/13/17 10:22 Dose: 0.25 mcg Calcium Acetate (Phoslo) 667 mg PO TID [facility] Last Admin: 07/13/17 13:50 Dose: 667 mg Cinacalcet (Sensipar) 60 mg PO DAILY [facility] Last Admin: 07/13/17 10:28 Dose: 60 mg Citric Acid/Sodium Citrate (Bicitra 334 Mg/5 Ml-500 Mg) 15 ml PO BID PRN PRN Reason: Heartburn Last Admin: 07/12/17 09:32 Dose: 15 ml Epoetin Raheem (Procrit) 10,000 unit SC [facility] [place] [facility] Folic Acid (Folic Acid) 1 mg PO DAILY [facility] Last Admin: 07/13/17 10:22 Dose: 1 mg Hydralazine HCl (Apresoline) 50 mg PO BID [facility] Last Admin: 07/13/17 10:22 Dose: 50 mg Lactulose (Enulose) 20 gm PO DAILY [facility] Metoprolol Tartrate (Lopressor) 50 mg PO DAILY [facility] Last Admin: 07/13/17 10:22 Dose: 50 mg Vitamin B Complex/Vit C/Folic Acid (Nephro-Merle) 1 tab PO DAILY [facility] Last Admin: 07/13/17 10:22 Dose: 1 tab Zolpidem Tartrate (Ambien) 5 mg PO HS PRN PRN Reason: Insomnia - Labs Labs: 07/13/17 08:55 07/13/17 08:55 - Constitutional Appears: No Acute Distress, Chronically Ill - Head Exam Head Exam: ATRAUMATIC, NORMAL INSPECTION - Eye Exam Eye Exam: EOMI, Normal appearance - Neck Exam Neck Exam: Normal Inspection. absent: Tenderness - Respiratory Exam Respiratory Exam: Clear to Ausculation Bilateral, NORMAL BREATHING PATTERN - Cardiovascular Exam Cardiovascular Exam: REGULAR RHYTHM, +S1 - GI/Abdominal Exam GI & Abdominal Exam: Soft. absent: Tenderness - Extremities Exam Extremities Exam: Normal Inspection. absent: Tenderness - Neurological Exam Neurological Exam: Alert, CN II-XII Intact - Skin Skin Exam: Dry, Warm Assessment and Plan (1) Secondary hyperparathyroidism Status: Acute (2) ESRD (end stage renal disease) Status: Acute - Assessment and Plan (Free Text) Plan: Same PD EPO- change to MWF schedule as it wasnt given 07/12 Transfuse 2 uints prbcs as per heme lactulose again if ok can consider discharge in AM
--- NOTE | 2017-07-13 14:44 | CP.PCM.CON ---
<Nidhi Lu - Last Filed: 07/13/17 14:33> History of Present Illness - History of Present Illness History of Present Illness: PGY 3 Heme/Onc Consult for Dr. Kendall Ball Reason: anemia 61 year old female with PMHx of HTN, ESRD on PD HD, DM, nephrosclerosis admitted for anemia. Patient admits she used to be on Epogen 3 months ago, which maintained her hemoglobin level at around 12. She has stopped the Epogen since. Patient was referred to the ED for weakness and possible need for transfusion. Patient has had prior transfusions due to her dialysis. In the ED patient was found to have Hgb of 5.9. Patient was transfused 1 unit of PRBC in the ED. She had PD dialysis last night. Patient denies fever, chills, nausea, vomit, diarrhea, CP, SOB, headache. Past medical history: HTN, ESRD on PD HD, DM, nephrosclerosis Past Surgical Hx: PD cath insertion, lipoma of left breast removed, stent in artery of right leg places Allergies: NKDA Social Hx: denies tobacco, alcohol and illicit drug use Family Hx: Denies hematologic and oncologic problems Review of systems: All remaining review of systems including HEENT, cardiovascular, respiratory, gastrointestinal, genitourinary, musculoskeletal, dermatologic, neurologic, and psychiatric are negative unless mentioned in the HPI. Review of Systems - Constitutional Constitutional: absent: Chills, Fever - EENT Eyes: absent: Change in Vision - Breasts Breasts: absent: Pain - Cardiovascular Cardiovascular: absent: Chest Pain - Respiratory Respiratory: absent: Cough, Dyspnea - Gastrointestinal Gastrointestinal: Constipation. absent: Abdominal Pain, Diarrhea, Nausea, Vomiting - Genitourinary Genitourinary: absent: Dysuria - Musculoskeletal Musculoskeletal: absent: Back Pain, Numbness, Tingling - Integumentary Integumentary: absent: New Lesions - Neurological Neurological: absent: Numbness, Frequent Falls, Syncope, Tingling Additional comments: +generalized weakness - Psychiatric Psychiatric: absent: Anxiety - Endocrine Endocrine: absent: Palpitations - Hematologic/Lymphatic Hematologic: absent: Easy Bruising Past Patient History - Past Medical History & Family History Past Medical History?: Yes - Past Social History Smoking Status: Former Smoker - CARDIAC Hx Hypercholesterolemia: Yes Hx Hypertension: Yes - PULMONARY Hx Respiratory Disorders: No - NEUROLOGICAL Hx Neurological Disorder: No - HEENT Hx HEENT Problems: No Other/Comment: otitis media - RENAL Hx Chronic Kidney Disease: Yes Type of Dialysis Access: peritoneal dialysis Date of Last Dialysis Treatment: 07/09/17 Hx Renal Failure: Yes - ENDOCRINE/METABOLIC Hx Diabetes Mellitus Type 2: Yes Hx Hyperthyroidism: Yes Other/Comment: states thyroid problem is under control without medication - HEMATOLOGICAL/ONCOLOGICAL Hx Anemia: Yes Hx Blood Transfusions: Yes - INTEGUMENTARY Hx Dermatological Problems: Yes Other/Comment: HX: LEFT THIGH MASS surgically removed. - MUSCULOSKELETAL/RHEUMATOLOGICAL Hx Falls: No - GASTROINTESTINAL Hx Gastrointestinal Disorders: No Other/Comment: peritoneal dialysis - GENITOURINARY/GYNECOLOGICAL Hx Genitourinary Disorders: No Other/Comment: renal failure - PSYCHIATRIC Hx Psychophysiologic Disorder: No Hx Substance Use: No - SURGICAL HISTORY Hx Breast Biopsy: Yes (fatty tissue) Hx Vascular Surgery: Yes (stent placement rt leg) Other/Comment: left breast, left foot. tubes both ears. HX: ARTHROPLASTY 2ND AND 3RD LEFT TOES. Peritoneal dialysis catheter placement 5 years ago - ANESTHESIA Hx Anesthesia: Yes Hx Anesthesia Reactions: No Hx Malignant Hyperthermia: No Meds Allergies/Adverse Reactions: Allergies Allergy/AdvReac Type Severity Reaction Status Date / Time No Known Allergies Allergy Verified 07/11/17 14:49 - Medications Medications: Current Medications Calcitriol (Rocaltrol) 0.25 mcg PO DAILY [facility] Last Admin: 07/13/17 10:22 Dose: 0.25 mcg Calcium Acetate (Phoslo) 667 mg PO TID [facility] Last Admin: 07/13/17 13:50 Dose: 667 mg Cinacalcet (Sensipar) 60 mg PO DAILY [facility] Last Admin: 07/13/17 10:28 Dose: 60 mg Citric Acid/Sodium Citrate (Bicitra 334 Mg/5 Ml-500 Mg) 15 ml PO BID PRN PRN Reason: Heartburn Last Admin: 07/12/17 09:32 Dose: 15 ml Epoetin Raheem (Procrit) 10,000 unit SC [facility] Folic Acid (Folic Acid) 1 mg PO DAILY [facility] Last Admin: 07/13/17 10:22 Dose: 1 mg Hydralazine HCl (Apresoline) 50 mg PO BID [facility] Last Admin: 07/13/17 10:22 Dose: 50 mg Lactulose (Enulose) 20 gm PO DAILY [facility] Metoprolol Tartrate (Lopressor) 50 mg PO DAILY [facility] Last Admin: 07/13/17 10:22 Dose: 50 mg Vitamin B Complex/Vit C/Folic Acid (Nephro-Merle) 1 tab PO DAILY [facility] Last Admin: 07/13/17 10:22 Dose: 1 tab Zolpidem Tartrate (Ambien) 5 mg PO HS PRN PRN Reason: Insomnia Physical Exam - Constitutional Appears: No Acute Distress - Head Exam Head Exam: NORMAL INSPECTION, NORMOCEPHALIC - Eye Exam Eye Exam: EOMI, Normal appearance - ENT Exam ENT Exam: Mucous Membranes Moist - Neck Exam Neck exam: Positive for: Full Rom - Respiratory Exam Respiratory Exam: Clear to Auscultation Bilateral - Cardiovascular Exam Cardiovascular Exam: REGULAR RHYTHM, +S1, +S2 - GI/Abdominal Exam GI & Abdominal Exam: Soft. absent: Distended, Tenderness - Extremities Exam Extremities exam: Positive for: full ROM. Negative for: pedal edema, tenderness - Back Exam Back exam: FULL ROM - Neurological Exam Neurological exam: Alert, Oriented x3 - Skin Skin Exam: Dry, Warm Results - Vital Signs Recent Vital Signs: Last Vital Signs Temp 98.5 F 07/13/17 12:00 Pulse 117 H 07/13/17 08:33 Resp 18 07/13/17 08:00 BP 161/77 H 07/13/17 08:00 Pulse Ox 100 07/13/17 06:00 - Labs Result Diagrams: 07/13/17 08:55 07/13/17 08:55 Labs: Laboratory Results - last 24 hr 07/12/17 07/12/17 07/12/17 15:57 15:57 15:57 WBC RBC Hgb Hct MCV MCH MCHC RDW Plt Count MPV Retic Count 3.3 H Sodium Potassium Chloride Carbon Dioxide Anion Gap BUN Creatinine Est GFR ( Amer) Est GFR (Non-Af Amer) Random Glucose Calcium % Saturation 40 Ferritin 915.0 Vitamin B12 Folate 07/12/17 07/13/17 07/13/17 15:57 08:55 08:55 WBC 8.9 RBC 2.26 L Hgb 6.9 L Hct 19.9 L MCV 88.1 MCH 30.3 MCHC 34.4 RDW 15.9 H Plt Count 219 MPV 7.6 Retic Count Sodium 133 Potassium 4.3 Chloride 93 L Carbon Dioxide 26 Anion Gap 19 BUN 64 H Creatinine 18.4 H* Est GFR ( Amer) 2 Est GFR (Non-Af Amer) 2 Random Glucose 102 Calcium 9.8 % Saturation Ferritin Vitamin B12 > 1000 H Folate > 20.0 Assessment & Plan (1) Severe anemia Assessment and Plan: Likely secondary to ESRD. Restart Epogen. Will transfuse 2 more units of PRBC as per discussion between Dr. Ball and Dr. Perkins. Iron, Ferritin, B12, Folate are within normal limits Stool Ob negative Continue PD HD Recheck CBC in the AM Status: Acute - Assessment and Plan (Free Text) Assessment: Patient seen and examined during rounds with Dr. Ball. Recommendations above as per attending. Jeremy Lu, PGY 3 <Reagan Ball - Last Filed: 07/13/17 22:14> Meds - Medications Medications: Current Medications Calcitriol (Rocaltrol) 0.25 mcg PO DAILY [facility] Last Admin: 07/13/17 10:22 Dose: 0.25 mcg Calcium Acetate (Phoslo) 667 mg PO TID [facility] Last Admin: 07/13/17 17:14 Dose: 667 mg Cinacalcet (Sensipar) 60 mg PO DAILY [facility] Last Admin: 07/13/17 10:28 Dose: 60 mg Citric Acid/Sodium Citrate (Bicitra 334 Mg/5 Ml-500 Mg) 15 ml PO BID PRN PRN Reason: Heartburn Last Admin: 07/12/17 09:32 Dose: 15 ml Epoetin Raheem (Procrit) 10,000 unit SC MWF [facility] Last Admin: 07/13/17 15:33 Dose: 10,000 unit Folic Acid (Folic Acid) 1 mg PO DAILY [facility] Last Admin: 07/13/17 10:22 Dose: 1 mg Hydralazine HCl (Apresoline) 50 mg PO BID [facility] Last Admin: 07/13/17 17:14 Dose: 50 mg Lactulose (Enulose) 20 gm PO DAILY [facility] Metoprolol Tartrate (Lopressor) 50 mg PO DAILY [facility] Last Admin: 07/13/17 10:22 Dose: 50 mg Ondansetron HCl (Zofran Inj) 4 mg IVP Q6 PRN PRN Reason: Nausea/Vomiting Last Admin: 07/13/17 15:33 Dose: 4 mg Vitamin B Complex/Vit C/Folic Acid (Nephro-Merle) 1 tab PO DAILY [facility] Last Admin: 07/13/17 10:22 Dose: 1 tab Zolpidem Tartrate (Ambien) 5 mg PO HS PRN PRN Reason: Insomnia Results - Vital Signs Recent Vital Signs: Last Vital Signs Temp 98.1 F 07/13/17 21:21 Pulse 64 07/13/17 21:21 Resp 20 07/13/17 21:21 BP 140/68 07/13/17 21:21 Pulse Ox 100 07/13/17 16:00 - Labs Result Diagrams: 07/13/17 08:55 07/13/17 08:55 Labs: Laboratory Results - last 24 hr 07/11/17 07/13/17 07/13/17 16:13 08:55 08:55 WBC 8.9 RBC 2.26 L Hgb 6.9 L Hct 19.9 L MCV 88.1 MCH 30.3 MCHC 34.4 RDW 15.9 H Plt Count 219 MPV 7.6 Sodium 133 Potassium 4.3 Chloride 93 L Carbon Dioxide 26 Anion Gap 19 BUN 64 H Creatinine 18.4 H* Est GFR ( Amer) 2 Est GFR (Non-Af Amer) 2 Random Glucose 102 Calcium 9.8 Blood Type O POSITIVE Antibody Screen Negative Assessment & Plan - Assessment and Plan (Free Text) Assessment: Pt seen and examined, agree with Dr. Lu's consult. 61 year old female with ESRD on PD admitted with symptomatic anemia. Denies abnormal bleeding and bruising. S/p 1U PRBC. Anemia w/u sent. To receive an additional 2U PRBC. Likely anemia of chronic kidney disease; to restart EPO. Case discussed with Dr. Perkins. Thank you for this interesting consult.
[2017-07-13] MEDS ORDERED: EPOETIN ALFA 10,000 UNIT/ML ML SC SCH (14:45)
[2017-07-14 06:31] LABS: BASO # 0.1 K/uL (0.0-0.2); BASO % 0.6 % (0.0-2.0); EOS # 0.2 K/uL (0.0-0.7); EOS % 2.6 % (0.0-4.0); HEMOGLOBIN 9.2 g/dL (11.0-16.0); LYMPH # 1.9 K/uL (1.0-4.3); LYMPH % 20.8 % (20.0-40.0); MEAN CELL VOLUME 87.3 fL (81.0-99.0); MEAN CORPUSCULAR HEMOGLOBIN 29.8 pg (27.0-31.0); MEAN CORPUSCULAR HGB CONC 34.1 g/dL (33.0-37.0); MEAN PLATELET VOLUME 7.5 fL (7.2-11.7); MONO # 0.9 K/uL (0.0-0.8); MONO % 9.6 % (0.0-10.0); NEUT % 66.4 % (50.0-75.0); NRBC % 0.7 % (0.0-2.0); RBC 3.09 Mil/uL (3.80-5.20); RED CELL DISTRIBUTION WIDTH 16.1 % (11.5-14.5)
--- NOTE | 2017-07-14 08:16 | CP.PCM.PN ---
Subjective - Date & Time of Evaluation Date of Evaluation: 07/14/17 Time of Evaluation: 08:13 - Subjective Subjective: PD ongoing- doing well Did not receive ordered EPO 07/12- will change to [facility] schedule c/o constipation Seen by GI- felt to have anemia related to CKD no other complaint 07/14 Notes reviewed Discussed with nursing staff- no difficulties overnight Patient feels well Tolerated transfusion PD going well, no problems reported BP improved Objective - Vital Signs/Intake and Output Vital Signs (last 24 hours): Temp Pulse Resp BP Pulse Ox 98.1 F 61 18 120/72 100 07/14/17 06:00 07/14/17 06:00 07/14/17 06:00 07/14/17 06:00 07/14/17 06:00 Intake and Output: 07/14/17 07/14/17 06:59 18:59 Intake Total 1125 Output Total 550 Balance 575 - Medications Medications: Current Medications Calcitriol (Rocaltrol) 0.25 mcg PO DAILY [facility] Last Admin: 07/13/17 10:22 Dose: 0.25 mcg Calcium Acetate (Phoslo) 667 mg PO TID [facility] Last Admin: 07/13/17 17:14 Dose: 667 mg Cinacalcet (Sensipar) 60 mg PO DAILY [facility] Last Admin: 07/13/17 10:28 Dose: 60 mg Citric Acid/Sodium Citrate (Bicitra 334 Mg/5 Ml-500 Mg) 15 ml PO BID PRN PRN Reason: Heartburn Last Admin: 07/12/17 09:32 Dose: 15 ml Epoetin Raheem (Procrit) 10,000 unit [facility] Last Admin: 07/13/17 15:33 Dose: 10,000 unit Folic Acid (Folic Acid) 1 mg PO DAILY [facility] Last Admin: 07/13/17 10:22 Dose: 1 mg Hydralazine HCl (Apresoline) 50 mg PO BID [facility] Last Admin: 07/13/17 17:14 Dose: 50 mg Lactulose (Enulose) 20 gm PO DAILY [facility] Metoprolol Tartrate (Lopressor) 50 mg PO DAILY [facility] Last Admin: 07/13/17 10:22 Dose: 50 mg Ondansetron HCl (Zofran Inj) 4 mg IVP Q6 PRN PRN Reason: Nausea/Vomiting Last Admin: 07/13/17 15:33 Dose: 4 mg Vitamin B Complex/Vit C/Folic Acid (Nephro-Merle) 1 tab PO DAILY [facility] Last Admin: 07/13/17 10:22 Dose: 1 tab Zolpidem Tartrate (Ambien) 5 mg PO HS PRN PRN Reason: Insomnia - Labs Labs: 07/14/17 06:25 07/13/17 08:55 - Constitutional Appears: Well, Non-toxic - Head Exam Head Exam: ATRAUMATIC, NORMAL INSPECTION - Eye Exam Eye Exam: EOMI, Normal appearance - ENT Exam ENT Exam: Mucous Membranes Moist, Normal Oropharynx - Cardiovascular Exam Cardiovascular Exam: REGULAR RHYTHM, +S1, +S2 - GI/Abdominal Exam GI & Abdominal Exam: Soft, Normal Bowel Sounds - Extremities Exam Extremities Exam: absent: Joint Swelling, Pedal Edema - Neurological Exam Neurological Exam: Alert, Awake, Oriented x3 - Skin Skin Exam: Dry, Intact Assessment and Plan (1) Anemia Status: Acute (2) Hypertension Status: Acute (3) ESRD (end stage renal disease) Status: Acute (4) Secondary hyperparathyroidism Status: Acute - Assessment and Plan (Free Text) Assessment: Maintain pd tolerating well Bp stable with current meds Stable renal flores for outpatient follow up
[2017-07-14] MEDS ORDERED: EPOETIN ALFA 10,000 UNIT/ML ML SC SCH (10:00)
--- NOTE | 2017-07-14 10:56 | CP.PCM.PN ---
Subjective - Date & Time of Evaluation Date of Evaluation: 07/14/17 Time of Evaluation: 11:00 - Subjective Subjective: F/U anemia. Reports constiaption x 4 days. Denies fever, chills, BATES, cough, abdom pain, RB, melena, hemoptysis Objective - Vital Signs/Intake and Output Vital Signs (last 24 hours): Temp Pulse Resp BP Pulse Ox 98.1 F 61 18 120/72 100 07/14/17 06:00 07/14/17 06:00 07/14/17 06:00 07/14/17 06:00 07/14/17 06:00 Intake and Output: 07/14/17 07/14/17 06:59 18:59 Intake Total 1125 Output Total 550 Balance 575 - Medications Medications: Current Medications Calcitriol (Rocaltrol) 0.25 mcg PO DAILY [facility] Last Admin: 07/13/17 10:22 Dose: 0.25 mcg Calcium Acetate (Phoslo) 667 mg PO TID [facility] Last Admin: 07/13/17 17:14 Dose: 667 mg Cinacalcet (Sensipar) 60 mg PO DAILY [facility] Last Admin: 07/13/17 10:28 Dose: 60 mg Citric Acid/Sodium Citrate (Bicitra 334 Mg/5 Ml-500 Mg) 15 ml PO BID PRN PRN Reason: Heartburn Last Admin: 07/12/17 09:32 Dose: 15 ml Epoetin Raheem (Procrit) 10,000 unit [place] MWF [facility] Last Admin: 07/13/17 15:33 Dose: 10,000 unit Folic Acid (Folic Acid) 1 mg PO DAILY [facility] Last Admin: 07/13/17 10:22 Dose: 1 mg Hydralazine HCl (Apresoline) 50 mg PO BID [facility] Last Admin: 07/13/17 17:14 Dose: 50 mg Lactulose (Enulose) 20 gm PO DAILY [facility] Metoprolol Tartrate (Lopressor) 50 mg PO DAILY [facility] Last Admin: 07/14/17 09:58 Dose: Not Given Ondansetron HCl (Zofran Inj) 4 mg IVP Q6 PRN PRN Reason: Nausea/Vomiting Last Admin: 07/13/17 15:33 Dose: 4 mg Vitamin B Complex/Vit C/Folic Acid (Nephro-Merle) 1 tab PO DAILY [facility] Last Admin: 07/13/17 10:22 Dose: 1 tab Zolpidem Tartrate (Ambien) 5 mg PO HS PRN PRN Reason: Insomnia - Labs Labs: 07/14/17 06:25 07/13/17 08:55 - Constitutional Appears: Well - Respiratory Exam Respiratory Exam: Clear to Ausculation Bilateral - Cardiovascular Exam Cardiovascular Exam: RRR - GI/Abdominal Exam GI & Abdominal Exam: Soft, Normal Bowel Sounds. absent: Tenderness - Extremities Exam Extremities Exam: absent: Calf Tenderness - Neurological Exam Neurological Exam: Alert, Oriented x3 Assessment and Plan (1) Constipated Assessment & Plan: lactulose. Consider suppositories and dulcolax po Status: Acute (2) ESRD (end stage renal disease) Assessment & Plan: Cr 18 Status: Acute (3) Severe anemia Assessment & Plan: OB stool neg. Chr anemia. Hb dropped when stopped epogen. Follow Hb Status: Acute
[2017-07-14] MEDS: Multivitamin Vitamin B Complex (Nephro-Vite) Tab PO SCH (10:57)
[2017-07-15 00:43] VITALS: RESP 20
--- NOTE | 2017-07-15 05:12 | PN ---
DATE: 07/14/2017 SUBJECTIVE: The patient is seen today, 07/14/2017. She is not vomiting anymore, and blood pressure is better controlled. OBJECTIVE: VITAL SIGNS: Blood pressure is 159/87, temperature 98.2, respiratory rate 15, and pulse 69. HEENT: Pupils equal, reactive to light. Normal-appearing mucosa of the conjunctivae, oropharynx and nasal membrane mucosa. NECK: Supple. No JVD. No carotid bruit. No lymph node. No thyromegaly. CHEST/LUNGS: Bilateral symmetrical expansion. Good air exchange. No rales, no rhonchi. CARDIOVASCULAR SYSTEM: PMI not localized. S1, S2. No additional sounds. ABDOMEN: Normoactive bowel sounds. No tenderness. No organomegaly. No masses. EXTREMITIES: No cyanosis, no clubbing, no edema. SHAREPOINT CONSULTANT: Alert, awake, oriented x2. No neurological deficit could be appreciated. ASSESSMENT 1. End-stage renal disease, on peritoneal dialysis. 2. Uncontrolled hypertension. 3. Status post severe symptomatic anemia, status post 3 units of packed RBCs transfusion, and hemoglobin came up to 9.2. PLAN: Continue current antihypertensive medications. Continue peritoneal dialysis. Continue Epogen as per the Nephrology. Kartik Hemphill MD
[2017-07-15] MEDS: Multivitamin Vitamin B Complex (Nephro-Vite) Tab PO SCH (09:47)
[2017-07-15 16:53] VITALS: O2SAT 98
[2017-07-15 17:37] VITALS: BP 145/81; PULSE 60; TEMP 97.7
--- NOTE | 2017-07-16 08:52 | PN ---
DATE: 07/13/2017 SUBJECTIVE: The patient is seen today on 07/13/2017. She was having vomiting that improved after the patient was given antiemetics. The patient is getting the peritoneal dialysis treatment with her own equipments that she used at home. PHYSICAL EXAMINATION: VITAL SIGNS: Blood pressure 142/67, temperature 97.8, respiratory rate 20, and pulse 61. HEENT: Pupils are equal and reactive to light. Normal appearing mucosa of the conjunctivae, oropharynx, and nasal membrane mucosa. NECK: Supple. No JVD. No carotid bruit. No lymph node. No thyromegaly. CHEST AND LUNGS: Bilateral symmetrical expansion. Good air exchange. No rales. No rhonchi. CARDIOVASCULAR SYSTEM: PMI not localized. S1, S2. No additional sounds. ABDOMEN: Normoactive bowel sounds. No tenderness. No organomegaly. No masses. EXTREMITIES: No cyanosis. No clubbing. No edema. CENTRAL NERVOUS SYSTEM: Alert, awake, and oriented x2. No neurological deficit could be appreciated. ASSESSMENT: Uncontrolled hypertension, anemia of chronic disease, uremia with possible uremic gastritis and frequent nausea and vomiting. PLAN: Continue current peritoneal dialysis. Continue current antihypertensive medications. Follow Hematology and Nephrology recommendations. Kartik Hemphill MD
== END 2017-07-15 16:30 | disposition home or self-care (01) | DRG 682 ==
LOC: C.ER 13:52 → C.9E 16:55 → C.9I 07-12 07:36 → OBSVTOIN 07-12 13:41 → C.6T 07-14 20:46 → C.9I 07-14 21:15 → C.6T 07-14 21:58
PROVIDERS: ADMIT Internal Medicine; ATTEND Internal Medicine
PROC: 30233N1 Transfusion of Nonautologous Red Blood Cells into Peripheral Vein, Percutaneous Approach (ICD-10-PCS; principal; 2017-07-12)
DX: I12.0 Hypertensive chronic kidney disease with stage 5 chronic kidney disease or end stage renal disease (principal); N18.6 End stage renal disease; E11.22 Type 2 diabetes mellitus with diabetic chronic kidney disease; N25.81 Secondary hyperparathyroidism of renal origin; D63.1 Anemia in chronic kidney disease; Z99.2 Dependence on renal dialysis; E78.00 Pure hypercholesterolemia, unspecified; R53.1 Weakness; K59.00 Constipation, unspecified; Z87.891 Personal history of nicotine dependence

== ENCOUNTER 2017-09-27 04:03 | Emergency (ER) | payer MEDICARE, OTHER ==
[2017-09-27 04:03] VITALS: BMI 25.1
[2017-09-27 04:27] VITALS: RESP 20
--- NOTE | 2017-09-27 05:06 | C.PDOC ---
History Of Present Illness 62 year old female, whose PMHx includes ESRD and is on peritoneal dialysis at home, presents to the ED for evaluation of a fluctuating blood pressure for the past 3 days. Patient was evaluated by her PMD and states her medication was changed. She is unable to recall the name of the medication. Today, patient developed a moderate frontal headache, and feels like her pressure is high which prompted this ED visit. Patient also notes that she felt slightly short of breath 2 days ago. Patient currently denies shortness of breath as well as chest pain, dizziness, or vision changes. Time Seen by Provider: 09/27/17 04:38 Chief Complaint (Nursing): High Blood Pressure History Per: Patient History/Exam Limitations: no limitations Onset/Duration Of Symptoms: Days (3) Current Symptoms Are (Timing): Still Present Quality: Aching Additional History Per: Patient Past Medical History Reviewed: Historical Data, Nursing Documentation, Vital Signs Vital Signs: Last Vital Signs Temp 98.1 F 09/27/17 06:24 Pulse 59 L 09/27/17 06:24 Resp 20 09/27/17 06:24 BP 168/83 H 09/27/17 06:24 Pulse Ox 97 09/27/17 06:43 - Medical History PMH: Anemia (5 BLOOD TRANSFUSIONS IN -2017), Diabetes, HTN, Hypercholesterolemia, Hyperthyroidism, End Stage Renal Disease, Chronic Kidney Disease Surgical History: No Surg Hx - [facility] Procedures BREAST DX PROCEDURE NEC (01/20/14) CENTRAL VENOUS CATHETER PLACEMENT WITH GUIDANCE (03/10/13) COLONOSCOPY (09/02/14) CREATE CUTANPERITON FIST (03/10/13) DX ULTRASOUND-THORAX NEC (02/24/14) HEMODIALYSIS (03/10/13) LOCAL EXCIS BREAST LES (02/24/14) MYRINGOTOMY W INTUBATION (02/10/15) PACKED CELL TRANSFUSION (03/10/13) PERCUTAN NEEDLE BIOPSY OF BREAST (01/20/14) TRANSFUSE NONAUT RED BLOOD CELLS IN PERIPH VEIN, PERC (07/12/17) Family History: States: Hypertension - Social History Hx Tobacco Use: No Hx Alcohol Use: No Hx Substance Use: No - Immunization History Hx Tetanus Toxoid Vaccination: No Hx Influenza Vaccination: Yes Hx Pneumococcal Vaccination: Yes Review Of Systems Constitutional: Positive for: Other (fluctuating increase in blood pressure ) Cardiovascular: Negative for: Chest Pain Respiratory: Negative for: Shortness of Breath Neurological: Positive for: Headache (frontal ). Negative for: Dizziness Physical Exam - Physical Exam Appears: Non-toxic, No Acute Distress Skin: Normal Color, Warm, Dry Head: Atraumatic, Normacephalic Eye(s): bilateral: Normal Inspection Oral Mucosa: Moist Neck: Normal ROM, Supple Chest: Symmetrical, No Deformity, No Tenderness Cardiovascular: Rhythm Regular, No Murmur Respiratory: Normal Breath Sounds, No Rales, No Rhonchi, No Wheezing Extremity: Normal ROM, Capillary Refill (less than 2 seconds ) Neurological/Psych: Oriented x3, Normal Speech, Normal Cognition ED Course And Treatment - Laboratory Results Result Diagrams: 09/27/17 05:15 09/27/17 05:15 ECG: Interpreted By Me, Viewed By Me ECG Rhythm: Sinus Rhythm Interpretation Of ECG: Normal Sinus Rhythm at rate 59bpm. No ST/T wave changes. Rate From EC O2 Sat by Pulse Oximetry: 97 (on RA) Pulse Ox Interpretation: Normal Progress Note: Bloodwork ordered. EKG ordered as per nurse's request. Apresoline PO administered. On reeval pt is in NAD, BP and headache improved. Pt advised to continue current BP meds. Pt will do peritoneal dialysis at home today and will follow up with PMD Reevaluation Time: 06:51 Reassessment Condition: Improved Disposition Counseled Patient/Family Regarding: Diagnosis, Need For Followup, Rx Given - Disposition Referrals: Kartik Hemphill MD [Staff Provider] - Disposition: HOME/ ROUTINE Disposition Time: 06:41 Condition: STABLE Additional Instructions: Continue current BP meds Follow up PMD Return to ER if CP, SOB, visual c/o or recurrent severe headache or worse Instructions: High Blood Pressure (DC) Forms: GERS (Armenian) - Clinical Impression Clinical Impression: Elevated blood pressure reading, Hypertension - PA / SALES MERCH[employer]ISE ASSOCIATE / Resident Statement MD/DO has reviewed & agrees with the documentation as recorded. - Scribe Statement The provider has reviewed the documentation as recorded by the Scribe (Alvina Lisa) All medical record entries made by the Scribe were at my direction and personally dictated by me. I have reviewed the chart and agree that the record accurately reflects my personal performance of the history, physical exam, medical decision making, and the department course for this patient. I have also personally directed, reviewed, and agree with the discharge instructions and disposition.
[2017-09-27 05:24] LABS: BASO # 0.1 K/uL (0.0-0.2); BASO % 0.9 % (0.0-2.0); EOS # 0.3 K/uL (0.0-0.7); EOS % 4.5 % (0.0-4.0); HEMOGLOBIN 10.5 g/dL (11.0-16.0); LYMPH # 1.3 K/uL (1.0-4.3); LYMPH % 21.1 % (20.0-40.0); MEAN CELL VOLUME 87.6 fL (81.0-99.0); MEAN CORPUSCULAR HEMOGLOBIN 28.8 pg (27.0-31.0); MEAN CORPUSCULAR HGB CONC 32.9 g/dL (33.0-37.0); MEAN PLATELET VOLUME 8.1 fL (7.2-11.7); MONO # 0.5 K/uL (0.0-0.8); MONO % 8.5 % (0.0-10.0); RBC 3.66 Mil/uL (3.80-5.20); RED CELL DISTRIBUTION WIDTH 16.9 % (11.5-14.5); WHITE BLOOD COUNT 6.1 K/uL (4.8-10.8)
[2017-09-27 05:35] LABS: ALB/GLOB RATIO 1.1 (1.0-2.1); ALBUMIN 3.7 g/dL (3.5-5.0); CALCIUM 8.8 mg/dl (8.6-10.4)
[2017-09-27 06:25] VITALS: BP 168/83; PULSE 59; TEMP 98.1
[2017-09-27 06:43] VITALS: O2SAT 97
== END 2017-09-27 06:55 | disposition home or self-care (01) ==
LOC: C.ER 04:03
DX: I10 Essential (primary) hypertension (principal); Z87.891 Personal history of nicotine dependence

== ENCOUNTER 2018-11-06 10:45 | Inpatient (IN) | payer MEDICARE, OTHER ==
[2018-11-06 10:45] VITALS: BMI 25.1
[2018-11-06] MEDS ORDERED: Sodium Chloride 0.9% 1,000 ML IV ONE (11:06)
--- NOTE | 2018-11-06 11:06 | C.PDOC ---
History Of Present Illness REFERRED DR AHUMADA FOR PERMACATH PLACEMENT. CURRENTLY ON PD, LAST DONE THIS MORNING. PS "THE PD IS NO LONGER CLEARING THE TOXINS SUFFICIENTLY". PENDING RENAL TRANSPLANT. PS OTHERWISE @ [facility], ASYMPT. EXAM NEG Time Seen by Provider: 11/06/18 11:02 Chief Complaint (Nursing): Medical Clearance History Per: Patient History/Exam Limitations: no limitations Past Medical History Reviewed: Historical Data, Nursing Documentation, Vital Signs Vital Signs: Last Vital Signs Temp 98.4 F 11/06/18 10:49 Pulse 64 11/06/18 10:49 Resp 16 11/06/18 10:49 BP 156/83 H 11/06/18 10:49 Pulse Ox 100 11/06/18 10:49 Primary Care Provider: Kartik Hemphill S - Medical History PMH: Anemia (5 BLOOD TRANSFUSIONS IN ), Diabetes, HTN, Hypercholesterolemia, Hyperthyroidism, End Stage Renal Disease, Chronic Kidney Disease Other Surgeries: Hx of surgeries - [facility] Procedures BREAST DX PROCEDURE NEC (01/20/14) CENTRAL VENOUS CATHETER PLACEMENT WITH GUIDANCE (03/10/13) COLONOSCOPY (09/02/14) CREATE CUTANPERITON FIST (03/10/13) DX ULTRASOUND-THORAX NEC (02/24/14) HEMODIALYSIS (03/10/13) LOCAL EXCIS BREAST LES (02/24/14) MYRINGOTOMY W INTUBATION (02/10/15) PACKED CELL TRANSFUSION (03/10/13) PERCUTAN NEEDLE BIOPSY OF BREAST (01/20/14) TRANSFUSE NONAUT RED BLOOD CELLS IN PERIPH VEIN, PERC (07/12/17) Family History: States: Hypertension - Social History Hx Tobacco Use: No Hx Alcohol Use: No Hx Substance Use: No - Immunization History Hx Tetanus Toxoid Vaccination: No Hx Influenza Vaccination: Yes Hx Pneumococcal Vaccination: Yes Review Of Systems Except As Marked, All Systems Reviewed And Found Negative. Constitutional: Negative for: Fever, Chills Physical Exam - Physical Exam Appears: Non-toxic, No Acute Distress Skin: Normal Color, Warm, Dry Head: Atraumatic, Normacephalic Eye(s): bilateral: Normal Inspection Neck: Supple Chest: Symmetrical Cardiovascular: Rhythm Regular Respiratory: No Rales, No Rhonchi, No Wheezing, Other (NARD) Gastrointestinal/Abdominal: Normal Exam, Soft, No Tenderness, No Guarding, No Rebound Neurological/Psych: Oriented x3, Normal Speech ED Course And Treatment - Laboratory Results Result Diagrams: 11/06/18 11:26 ECG: Interpreted By Me ECG Rhythm: Sinus Rhythm ECG Interpretation: Normal Rate From EC O2 Sat by Pulse Oximetry: 100 (RA) Pulse Ox Interpretation: Normal - Radiology CXR: Interpreted by Me CXR Interpretation: Yes: No Acute Disease - Physician Consult Information Time Consulting Physician Contacted: 11:08 Physician Contacted: Kartik Hemphill Disposition Counseled Patient/Family Regarding: Studies Performed, Diagnosis - Disposition Disposition: HOSPITALIZED Disposition Time: 11:09 Condition: STABLE - POA Present On Arrival: None - Clinical Impression Clinical Impression: ESRD (end stage renal disease), Acute renal failure on dialysis - Scribe Statement The provider has reviewed the documentation as recorded by the Uteibe Ashley Self Provider Attestation: All medical record entries made by the Scribe were at my direction and personally dictated by me. I have reviewed the chart and agree that the record accurately reflects my personal performance of the history, physical exam, medical decision making, and the department course for this patient. I have also personally directed, reviewed, and agree with the discharge instructions and disposition.
[2018-11-06 11:31] LABS: BASO % 0.4 % (0.0-2.0); EOS # 0.2 K/uL (0.0-0.7); EOS % 3.5 % (0.0-4.0); HEMOGLOBIN 13.5 g/dL (11.0-16.0); LYMPH # 1.2 K/uL (1.0-4.3); LYMPH % 18.1 % (20.0-40.0); MEAN CORPUSCULAR HEMOGLOBIN 29.2 pg (27.0-31.0); MEAN CORPUSCULAR HGB CONC 32.4 g/dL (33.0-37.0); MEAN PLATELET VOLUME 8.6 fL (7.2-11.7); MONO # 0.8 K/uL (0.0-0.8); NEUT # 4.3 K/uL (1.8-7.0); NRBC % 0.5 % (0.0-2.0); RBC 4.63 Mil/uL (3.80-5.20); RED CELL DISTRIBUTION WIDTH 19.3 % (11.5-14.5); WHITE BLOOD COUNT 6.5 K/uL (4.8-10.8)
[2018-11-06 11:39] LABS: INR 1.1; PARTIAL THROMBOPLASTIN TIME 36.6 SECONDS (21-34); PROTHROMBIN TIME 12.5 SECONDS (9.7-12.2)
[2018-11-06 11:44] LABS: ALB/GLOB RATIO 1.4 (1.0-2.1); ALBUMIN 4.3 g/dL (3.5-5.0); CALCIUM 10.5 mg/dl (8.6-10.4)
--- NOTE | 2018-11-06 11:50 | RAD ---
Chest x-ray single frontal view HISTORY: Medical clearance. COMPARISON: None available. Findings: No gross focal infiltrate or effusion. Persistent small nodular densities at the right lung apex and right lung base laterally. Bibasilar breast and nipple shadows. Atherosclerotic calcification at the aortic knob. Tortuous aorta. Degenerative changes in the spine. Impression: No focal infiltrate or effusion. Persistent small nodular densities at the right lung apex and right lung base laterally. Clinical correlation. Bibasilar breast and nipple shadows.
--- NOTE | 2018-11-06 14:23 | CP.PCM.CON ---
History of Present Illness - History of Present Illness History of Present Illness: Vascular surgery progress note for Dr. Leela Rosenthal, PGY-2 Pt seen/examined at bedside 63F w/PMH sig for ESRD on PD consulted for permacath placement in setting of failed PD therapy. Pt has been on home PD since 2012, however as per nephrology, PD not effectively clearing toxins. Pt was recently admitted to [facility] for weakness/fatigue, inability to ambulate and was doing PD 3x daily without improvement. Pt reports seeing Dr. Perkins in the office with blood work indicating that her BUN/Cr was elevated, recommended that patient be admitted to hospital for emergent HD. Pt reports continued weakness/fatigue, however is ab le to ambulate with cane. Admits to anuria. Denies N & V, F & C, SOB, CP, changes in bowel or bladder function, other complaints. PMH: ESRD on PD, DM, HTN, HLD, L breast intraductal papilloma, anemia, hyperthyroidism PSH: Excision of L breast intraductal papilloma, Excision of L thigh mass, excis ion of Right hip skin tag, L foot hammer toe repair of 2nd & 3rd digits, PD catheter placement (2012) All: NKDA SH: FH: non contributory Nephrology: Dr. Perkins Review of Systems - Review of Systems All systems: reviewed and no additional remarkable complaints except - Constitutional Constitutional: absent: Chills, Fever - EENT Eyes: absent: Change in Vision Nose/Mouth/Throat: absent: Sore Throat - Cardiovascular Cardiovascular: absent: Chest Pain - Respiratory Respiratory: absent: Cough - Gastrointestinal Gastrointestinal: absent: Abdominal Pain, Constipation, Diarrhea, Nausea, Vomiting - Integumentary Integumentary: absent: Rash - Neurological Neurological: Weakness - Psychiatric Psychiatric: absent: Change in Appetite - Endocrine Endocrine: Fatigue Past Patient History - Infectious Disease Hx of Infectious Diseases: None - Past Medical History & Family History Past Medical History?: Yes - Past Social History Smoking Status: Former Smoker - CARDIAC Hx Hypercholesterolemia: Yes Hx Hypertension: Yes - PULMONARY Hx Respiratory Disorders: No - NEUROLOGICAL Hx Neurological Disorder: No - HEENT Hx HEENT Problems: No Other/Comment: otitis media - RENAL Hx Chronic Kidney Disease: Yes - ENDOCRINE/METABOLIC Hx Hyperthyroidism: Yes - HEMATOLOGICAL/ONCOLOGICAL Hx Anemia: Yes (5 BLOOD TRANSFUSIONS IN -2017) - INTEGUMENTARY Hx Dermatological Problems: Yes Other/Comment: HX: LEFT THIGH MASS surgically removed. - MUSCULOSKELETAL/RHEUMATOLOGICAL Hx Falls: No - GASTROINTESTINAL Hx Gastrointestinal Disorders: No Other/Comment: peritoneal dialysis - GENITOURINARY/GYNECOLOGICAL Hx Genitourinary Disorders: No Other/Comment: renal failure - PSYCHIATRIC Hx Substance Use: No - SURGICAL HISTORY Hx Breast Biopsy: Yes (fatty tissue) Hx Vascular Surgery: Yes (stent placement rt leg) Other/Comment: left breast, left foot. tubes both ears. HX: ARTHROPLASTY 2ND AND 3RD LEFT TOES. Peritoneal dialysis catheter placement 5 years ago - ANESTHESIA Hx Anesthesia: Yes Hx Anesthesia Reactions: No Hx Malignant Hyperthermia: No Meds Allergies/Adverse Reactions: Allergies Allergy/AdvReac Type Severity Reaction Status Date / Time No Known Allergies Allergy Verified 09/27/17 04:27 - Medications Medications: Current Medications Calcium Acetate (Phoslo) 4 mg PO TID [facility] Folic Acid (Folic Acid) 1 mg PO DAILY [facility] Home Med (Atorvastatin [Lipitor]) 20 mg PO DAILY [facility] Hydralazine HCl (Apresoline) 2 mg PO TID [facility] Sodium Chloride (Sodium Chloride 0.9%) 1,000 mls @ 100 mls/hr IV .Q10H ONE Stop: 11/06/18 21:05 Last Admin: 11/06/18 11:47 Dose: 100 mls/hr Physical Exam - Constitutional Appears: Non-toxic, No Acute Distress - Head Exam Head Exam: ATRAUMATIC, NORMAL INSPECTION, NORMOCEPHALIC - Eye Exam Eye Exam: EOMI, Normal appearance - ENT Exam ENT Exam: Mucous Membranes Moist, Normal Exam - Neck Exam Neck exam: Positive for: Full Rom, Normal Inspection - Respiratory Exam Respiratory Exam: Clear to Auscultation Bilateral, NORMAL BREATHING PATTERN. absent: Chest Wall Tenderness Additional comments: well healed scar over right chest - Cardiovascular Exam Cardiovascular Exam: REGULAR RHYTHM, +S1, +S2 - GI/Abdominal Exam GI & Abdominal Exam: Distended, Normal Bowel Sounds, Soft. absent: Firm, Guarding, Tenderness Additional comments: PD catheter insertion into RLQ - Extremities Exam Extremities exam: Positive for: normal inspection - Neurological Exam Neurological exam: Alert, CN II-XII Intact, Oriented x3 - Psychiatric Exam Psychiatric exam: Normal Affect, Normal Mood - Skin Skin Exam: Dry, Intact, Normal Color, Warm Results - Vital Signs Recent Vital Signs: Last Vital Signs Temp 98.4 F 05/22/19 10:49 Pulse 74 11/06/18 13:15 Resp 18 11/06/18 13:15 BP 154/80 H 11/06/18 13:15 Pulse Ox 99 11/06/18 13:15 - Labs Result Diagrams: 11/06/18 11:26 11/06/18 11:26 Labs: Laboratory Results - last 24 hr 11/06/18 11/06/18 11/06/18 11:26 11:26 11:26 WBC 6.5 RBC 4.63 Hgb 13.5 D Hct 41.6 MCV 90.0 D MCH 29.2 MCHC 32.4 L RDW 19.3 H Plt Count 200 MPV 8.6 Neut % (Auto) 66.0 Lymph % (Auto) 18.1 L Clare % (Auto) 12.0 H Eos % (Auto) 3.5 Baso % (Auto) 0.4 Neut # (Auto) 4.3 Lymph # (Auto) 1.2 Clare # (Auto) 0.8 Eos # (Auto) 0.2 Baso # (Auto) 0.0 PT 12.5 H INR 1.1 APTT 36.6 H Sodium 137 Potassium 4.1 Chloride 92 L Carbon Dioxide 24 Anion Gap 25 H BUN 67 H Creatinine 15.6 H* Est GFR ( Amer) 3 Est GFR (Non-Af Amer) 2 Random Glucose 123 H Calcium 10.5 H Total Bilirubin 0.9 AST 46 H D ALT 49 Alkaline Phosphatase 106 Total Protein 7.4 Albumin 4.3 Globulin 3.1 Albumin/Globulin Ratio 1.4 Blood Type Antibody Screen 11/06/18 11:26 WBC RBC Hgb Hct MCV MCH MCHC RDW Plt Count MPV Neut % (Auto) Lymph % (Auto) Clare % (Auto) Eos % (Auto) Baso % (Auto) Neut # (Auto) Lymph # (Auto) Clare # (Auto) Eos # (Auto) Baso # (Auto) PT INR APTT Sodium Potassium Chloride Carbon Dioxide Anion Gap BUN Creatinine Est GFR ( Amer) Est GFR (Non-Af Amer) Random Glucose Calcium Total Bilirubin AST ALT Alkaline Phosphatase Total Protein Albumin Globulin Albumin/Globulin Ratio Blood Type O POSITIVE Antibody Screen Negative Assessment & Plan - Assessment and Plan (Free Text) Assessment: 63F w/ESRD on PD- failed, now needs HD Plan: NPO pMN Plan for permacath placement 11/07 FU vein mapping LUE precautions Consent in chart Further recs pending imaging evaluation DW Dr. Nidhi Rosenthal, PGY-2 - Date & Time Date: 11/06/18 Time: 15:40
[2018-11-06] MEDS ORDERED: Dextrose 50% SYRINGE Inj (50 ml) IV PRN (14:38)
[2018-11-06] MEDS ORDERED: Glucagon Recombinant 1 mg Inj IM PRN (14:38)
[2018-11-06] MEDS: (Novolog) Insulin Aspart, Recombinant 100 u/ml 10 ml vial SC SCH ×2 (17:06→21:20)
[2018-11-07 06:46] LABS: BASO % 0.3 % (0.0-2.0); EOS # 0.3 K/uL (0.0-0.7); EOS % 4.3 % (0.0-4.0); HEMOGLOBIN 12.8 g/dL (11.0-16.0); LYMPH # 1.4 K/uL (1.0-4.3); LYMPH % 23.3 % (20.0-40.0); MEAN CELL VOLUME 91.4 fL (81.0-99.0); MEAN CORPUSCULAR HEMOGLOBIN 29.1 pg (27.0-31.0); MEAN CORPUSCULAR HGB CONC 31.8 g/dL (33.0-37.0); MEAN PLATELET VOLUME 8.7 fL (7.2-11.7); MONO # 0.7 K/uL (0.0-0.8); MONO % 11.7 % (0.0-10.0); NEUT # 3.6 K/uL (1.8-7.0); NEUT % 60.4 % (50.0-75.0); NRBC % 0.1 % (0.0-2.0); RBC 4.39 Mil/uL (3.80-5.20); RED CELL DISTRIBUTION WIDTH 19.2 % (11.5-14.5); WHITE BLOOD COUNT 5.9 K/uL (4.8-10.8)
--- NOTE | 2018-11-07 06:56 | HP ---
HISTORY OF PRESENT ILLNESS: This is a 63-year-old female with history of multiple medical problems including end-stage renal disease, on peritoneal dialysis. The patient was recently admitted in emergency room of [facility] after change of mental status and abnormal jerky movement of upper extremities. The patient was found to have serum creatinine of 18. After getting her peritoneal dialysis, she was discharged to follow with Dr. Perkins, her plywood and veneer repairer. Dr. Perkins advised that the patient should be admitted for Perm-A-Cath insertion and start on hemodialysis as peritoneal dialysis is not being effective anymore and the patient is severely uremic. Other review of system is negative. ALLERGIES: NO KNOWN ALLERGY. MEDICATIONS: As per MAR and ordered. SOCIAL HISTORY: No history of smoking, EtOH or substance abuse. FAMILY HISTORY: Not contributory. PAST MEDICAL HISTORY: Hypertension, type 2 diabetes mellitus, end-stage renal disease. PHYSICAL EXAMINATION: GENERAL: The patient is in bed, not in any cardiopulmonary distress. VITAL SIGNS: Blood pressure 197/82, temperature 97.5, respiratory rate 20 and pulse 80. HEENT: Pupils equal, reactive to light. There is a herpetic lesion on the upper lip. NECK: Supple. No JVD, no carotid bruit. No lymph nodes. No thyromegaly. CHEST AND LUNGS: Bilateral symmetrical expansion. Good air exchange. No rales, no rhonchi. CARDIOVASCULAR SYSTEM: PMI not localized. S1, S2. No additional sounds. ABDOMEN: Normoactive bowel sounds. No tenderness, no organomegaly. No masses. EXTREMITIES: No cyanosis, no clubbing, no edema. DIRECTOR OF OUTSIDE SALES: Alert, awake, oriented x2. No neurological deficit could be appreciated. ASSESSMENT: End-stage renal disease that failed a peritoneal dialysis, hypertension, type 2 diabetes mellitus, upper lip herpetic lesions. PLAN: Resume the patient's antihypertensive medications. Vascular surgery for Perm-A-Cath insertion and starting hemodialysis. We will do vascular surgery consult, resume the patient's home medications, start as Zovirax twice a day. Kartik Hemphill MD
[2018-11-07 06:59] LABS: ALB/GLOB RATIO 1.4 (1.0-2.1); ALBUMIN 3.8 g/dL (3.5-5.0); CALCIUM 9.7 mg/dl (8.6-10.4)
[2018-11-07] MEDS: (Novolog) Insulin Aspart, Recombinant 100 u/ml 10 ml vial SC SCH ×3 (07:42→22:15)
[2018-11-07] MEDS: Pantoprazole 40 mg EC Tab PO SCH (09:40)
[2018-11-07] MEDS: Acyclovir 5% Oint (15 gm) EXT SCH ×2 (09:40→18:00)
--- NOTE | 2018-11-07 10:19 | CP.PCM.CON ---
History of Present Illness - History of Present Illness History of Present Illness: 63F w/PMH sig for ESRD on PD consulted for permacath placement in setting of failed PD therapy. Pt has been on home PD since 2012, PD not effectively clearing toxins. Pt was recently admitted to [facility] for weakness/fatigue, inability to ambulate and was doing PD 3x daily without improvement. Neuro workup reported as negative. When seen in the office with blood work indicating that her BUN/Cr was elevated, recommended that patient be admitted to hospital for emergent HD. Pt reports continued weakness/fatigue, however is able to ambulate with cane. Admits to anuria. Denies N & V, F & C, SOB, CP, changes in bowel or bladder function, other complaints. + weight loss 30 lbs/ 1 year PMH: ESRD on PD, DM, HTN, HLD, L breast intraductal papilloma- benign, anemia, hyperthyroidism PSH: Excision of L breast intraductal papilloma, Excision of L thigh mass, excision of Right hip skin tag, L foot hammer toe repair of 2nd & 3rd digits, PD catheter placement (2012) All: NKDA SH: negative for smoking, ETOH, illicits FH: multiple family ,members with CKD Nephrology: Dr. Perkins Review of Systems - Constitutional Constitutional: Malaise, Weight Loss, Weakness - EENT Eyes: absent: As Per HPI, Blind Spots, Blurred Vision, Change in Vision, Decreased Night Vision, Diplopia, Discharge, Dry Eye, Exophthalmos, Floaters, Irritation, Itchy Eyes, Loss of Peripheral Vision, Pain, Photophobia, Requires Corrective Lenses, Sees Flashes, Spots in Vision, Tunnel Vision, Other Visual Disturbances, Loss of Vision, Other Ears: absent: As Per HPI, Decreased Hearing, Ear Discharge, Ear Pain, Tinnitus, Abnormal Hearing, Disequilibrium, Dizziness, Other Nose/Mouth/Throat: absent: As Per HPI, Epistaxis, Nasal Congestion, Nasal Discharge, Nasal Obstruction, Nasal Trauma, Nose Pain, Post Nasal Drip, Sinus Pain, Sinus Pressure, Bleeding Gums, Change in Voice, Dental Pain, Dry Mouth, Dysphagia, Halitosis, Hoarsness, Lip Swelling, Mouth Lesions, Mouth Pain, Odynophagia, Sore Throat, Throat Swelling, Tongue Swelling, Facial Pain, Neck Pain, Neck Mass, Other - Breasts Breasts: As Per HPI - Cardiovascular Cardiovascular: Dyspnea on Exertion, Lightheadedness - Respiratory Respiratory: Dyspnea on Exertion - Gastrointestinal Gastrointestinal: Early Satiety, Nausea - Genitourinary Genitourinary: As Per HPI - Musculoskeletal Musculoskeletal: Muscle Cramps, Muscle Weakness, Myalgias - Integumentary Integumentary: absent: As Per HPI, Acne, Alopecia, Bleeding Lesions, Change in Hair, Change in Nails, Change in Pigmentation, Changing Lesions, Dry Skin, Erythema, Furuncle, Hirsutism, Lesions, New Lesions, Non-Healing Lesions, Photosensitivity, Pruritus, Rash, Skin Pain, Skin Ulcer, Sores, Striae, Swelling, Unusual Bruising, Wounds, Jaundice, Other - Neurological Neurological: Weakness Past Patient History - Infectious Disease Hx of Infectious Diseases: None - Past Medical History & Family History Past Medical History?: Yes Past Family History: Reviewed and not pertinent - Past Social History Smoking Status: Former Smoker Chewing Tobacco Use: No Cigar Use: No Alcohol: None Drugs: Denies Home Situation {Lives}: With Family Domestic Violence: Negative - CARDIAC Hx Hypercholesterolemia: Yes Hx Hypertension: Yes - PULMONARY Hx Respiratory Disorders: No - NEUROLOGICAL Hx Neurological Disorder: No - HEENT Hx HEENT Problems: No Other/Comment: otitis media - RENAL Hx Chronic Kidney Disease: Yes - ENDOCRINE/METABOLIC Hx Hyperthyroidism: Yes - HEMATOLOGICAL/ONCOLOGICAL Hx Anemia: Yes (5 BLOOD TRANSFUSIONS IN ) - INTEGUMENTARY Hx Dermatological Problems: Yes Other/Comment: HX: LEFT THIGH MASS surgically removed. - MUSCULOSKELETAL/RHEUMATOLOGICAL Hx Falls: No - GASTROINTESTINAL Hx Gastrointestinal Disorders: No Other/Comment: peritoneal dialysis - GENITOURINARY/GYNECOLOGICAL Hx Genitourinary Disorders: No Other/Comment: renal failure - PSYCHIATRIC Hx Substance Use: No - SURGICAL HISTORY Hx Breast Biopsy: Yes (fatty tissue) Hx Vascular Surgery: Yes (stent placement rt leg) Other/Comment: left breast, left foot. tubes both ears. HX: ARTHROPLASTY 2ND AND 3RD LEFT TOES. Peritoneal dialysis catheter placement 5 years ago - ANESTHESIA Hx Anesthesia: Yes Hx Anesthesia Reactions: No Hx Malignant Hyperthermia: No Meds Allergies/Adverse Reactions: Allergies Allergy/AdvReac Type Severity Reaction Status Date / Time No Known Allergies Allergy Verified 09/27/17 04:27 - Medications Medications: Current Medications Acyclovir (Zovirax 5% Oint) 1 gm EXT BID [facility] Last Admin: 11/07/18 09:40 Dose: 1 appl Dextrose (Dextrose 50% Inj) 0 ml IV STAT PRN; Protocol PRN Reason: Hypoglycemia Protocol Dextrose (Glutose 15) 0 gm PO ONCE PRN; Protocol PRN Reason: Hypoglycemia Protocol Folic Acid (Folic Acid) 1 mg PO DAILY [facility] Last Admin: 11/07/18 09:40 Dose: 1 mg Glucagon (Glucagen Diagnostic Kit) 0 mg IM STAT PRN; Protocol PRN Reason: Hypoglycemia Protocol Hydralazine HCl (Apresoline) 100 mg PO TID [facility] Last Admin: 11/07/18 09:40 Dose: 100 mg Dextrose (Dextrose 5% In Water 1000 Ml) 1,000 mls @ 0 mls/hr IV .Q0M PRN; Protocol PRN Reason: Hypoglycemia Protocol Insulin Aspart (Novolog) 0 unit SC ACHS [facility]; Protocol Last Admin: 11/07/18 07:42 Dose: Not Given Mirtazapine (Remeron) 15 mg PO [facility] Last Admin: 11/06/18 22:07 Dose: 15 mg Pantoprazole Sodium (Protonix Ec Tab) 40 mg PO DAILY [facility] Last Admin: 11/07/18 09:40 Dose: 40 mg Rosuvastatin Calcium (Crestor) 10 mg PO [facility] Last Admin: 11/06/18 22:07 Dose: 10 mg Physical Exam - Head Exam Head Exam: ATRAUMATIC, NORMAL INSPECTION - Eye Exam Eye Exam: EOMI, Normal appearance - Neck Exam Neck exam: Positive for: Normal Inspection. Negative for: Tenderness - Respiratory Exam Respiratory Exam: Clear to Auscultation Bilateral, NORMAL BREATHING PATTERN - Cardiovascular Exam Cardiovascular Exam: REGULAR RHYTHM, +S1 - GI/Abdominal Exam GI & Abdominal Exam: Soft. absent: Tenderness - Extremities Exam Extremities exam: Positive for: normal inspection. Negative for: tenderness - Neurological Exam Neurological exam: Alert, CN II-XII Intact - Skin Skin Exam: Dry, Warm Results - Vital Signs Recent Vital Signs: Last Vital Signs Temp 97.9 F 11/07/18 07:10 Pulse 74 11/07/18 07:10 Resp 20 11/07/18 07:10 BP 149/78 11/07/18 07:10 Pulse Ox 97 11/07/18 08:59 - Labs Result Diagrams: 11/07/18 06:30 11/07/18 06:30 Labs: Laboratory Results - last 24 hr 11/06/18 11/06/18 11/06/18 11:26 11:26 11:26 WBC 6.5 RBC 4.63 Hgb 13.5 D Hct 41.6 MCV 90.0 D MCH 29.2 MCHC 32.4 L RDW 19.3 H Plt Count 200 MPV 8.6 Neut % (Auto) 66.0 Lymph % (Auto) 18.1 L Jackson % (Auto) 12.0 H Eos % (Auto) 3.5 Baso % (Auto) 0.4 Neut # (Auto) 4.3 Lymph # (Auto) 1.2 Jackson # (Auto) 0.8 Eos # (Auto) 0.2 Baso # (Auto) 0.0 PT 12.5 H INR 1.1 APTT 36.6 H Sodium 137 Potassium 4.1 Chloride 92 L Carbon Dioxide 24 Anion Gap 25 H BUN 67 H Creatinine 15.6 H* Est GFR ( Amer) 3 Est GFR (Non-Af Amer) 2 POC Glucose (mg/dL) Random Glucose 123 H Hemoglobin A1c Calcium 10.5 H Total Bilirubin 0.9 AST 46 H D ALT 49 Alkaline Phosphatase 106 Total Protein 7.4 Albumin 4.3 Globulin 3.1 Albumin/Globulin Ratio 1.4 Blood Type Antibody Screen 11/06/18 11/06/18 11/06/18 11:26 15:53 16:32 WBC RBC Hgb Hct MCV MCH MCHC RDW Plt Count MPV Neut % (Auto) Lymph % (Auto) Jackson % (Auto) Eos % (Auto) Baso % (Auto) Neut # (Auto) Lymph # (Auto) Jackson # (Auto) Eos # (Auto) Baso # (Auto) PT INR APTT Sodium Potassium Chloride Carbon Dioxide Anion Gap BUN Creatinine Est GFR ( Amer) Est GFR (Non-Af Amer) POC Glucose (mg/dL) 107 Random Glucose Hemoglobin A1c 6.1 Calcium Total Bilirubin AST ALT Alkaline Phosphatase Total Protein Albumin Globulin Albumin/Globulin Ratio Blood Type O POSITIVE Antibody Screen Negative 11/06/18 11/07/18 11/07/18 21:03 06:12 06:30 WBC 5.9 RBC 4.39 Hgb 12.8 Hct 40.2 MCV 91.4 MCH 29.1 MCHC 31.8 L RDW 19.2 H Plt Count 201 MPV 8.7 Neut % (Auto) 60.4 Lymph % (Auto) 23.3 Jackson % (Auto) 11.7 H Eos % (Auto) 4.3 H Baso % (Auto) 0.3 Neut # (Auto) 3.6 Lymph # (Auto) 1.4 Jackson # (Auto) 0.7 Eos # (Auto) 0.3 Baso # (Auto) 0.0 PT INR APTT Sodium Potassium Chloride Carbon Dioxide Anion Gap BUN Creatinine Est GFR ( Amer) Est GFR (Non-Af Amer) POC Glucose (mg/dL) 155 H 103 Random Glucose Hemoglobin A1c Calcium Total Bilirubin AST ALT Alkaline Phosphatase Total Protein Albumin Globulin Albumin/Globulin Ratio Blood Type Antibody Screen 11/07/18 11/07/18 06:30 06:30 WBC RBC Hgb Hct MCV MCH MCHC RDW Plt Count MPV Neut % (Auto) Lymph % (Auto) Jackson % (Auto) Eos % (Auto) Baso % (Auto) Neut # (Auto) Lymph # (Auto) Jackson # (Auto) Eos # (Auto) Baso # (Auto) PT INR APTT 38.6 H Sodium 137 Potassium 4.3 Chloride 95 L Carbon Dioxide 22 Anion Gap 25 H BUN 75 H Creatinine 16.5 H* Est GFR ( Amer) 3 Est GFR (Non-Af Amer) 2 POC Glucose (mg/dL) Random Glucose 90 D Hemoglobin A1c Calcium 9.7 Total Bilirubin 0.7 AST 29 ALT 46 Alkaline Phosphatase 99 Total Protein 6.5 Albumin 3.8 Globulin 2.7 Albumin/Globulin Ratio 1.4 Blood Type Antibody Screen Assessment & Plan (1) Type 2 diabetes mellitus with diabetic nephropathy Status: Acute (2) End stage renal disease due to benign hypertension Status: Acute (3) Uremia of renal origin Status: Acute (4) ESRD (end stage renal disease) Status: Acute - Assessment and Plan (Free Text) Plan: dialysis once permcath inserted will need AV access and PD cath removal monitor HTN
[2018-11-07 14:42] LABS: HEPATITIS B SURFACE AG Negative (NEGATIVE)
[2018-11-07 14:47] LABS: HEPATITIS B CORE AB NEGATIVE (NEGATIVE)
[2018-11-07 14:59] LABS: HEPATITIS C ANTIBODY NEGATIVE (NEGATIVE)
[2018-11-07] MEDS ORDERED: HEPARIN-NS 5,000 UNITS/500 ML 5,000 UNIT/500 ML BAG IV ONE (15:05)
[2018-11-07] MEDS ORDERED: ceFAZolin 1 gm in NS 1 GM/100 ML BAG IVPB ONE (15:05)
[2018-11-07] MEDS ORDERED: Iohexol 240 (50 ml) ONE (15:06)
[2018-11-07] MEDS ORDERED: Midazolam 2 MG/2 ML VIAL ONE (16:10)
[2018-11-07] MEDS ORDERED: Propofol 10 mg/ml Inj (20 ML) ONE (16:11)
--- NOTE | 2018-11-07 17:16 | PCM.SURG1 ---
Surgeon's Initial Post Op Note - Surgeon's Notes Surgeon: Dr. Terrell Electroplating Laborer: Dr. Marroquin Type of Anesthesia: Moderate Sedation{RN} Anesthesia Administered By: Dr. Barragan Pre-Operative Diagnosis: malfunctioning PD catheter Operative Findings: see operative dictation Post-Operative Diagnosis: same Operation Performed: Venogram, right IJ permacath insertion, PD catheter removal Specimen/Specimens Removed: PD catheter Estimated Blood Loss: EBL {In ML}: 5 Blood Products Given: N/A Drains Used: No Drains Post-Op Condition: Good Date of Surgery/Procedure: 11/07/18 Time of Surgery/Procedure: 17:16
--- NOTE | 2018-11-07 17:50 | RAD ---
HISTORY: s/p R IJ permacath COMPARISON: Chest x-ray performed 11/06/18 TECHNIQUE: Chest, one view. FINDINGS: Right IJ approach dialysis catheter with distal tips at the right atrium/cavoatrial junction. LUNGS: Mild venous congestion. No focal consolidation. Please note that chest x-ray has limited sensitivity for the detection of pulmonary masses. PLEURA: No significant pleural effusion identified. No definite pneumothorax . CARDIOVASCULAR: Cardiomegaly. Dense atherosclerotic calcifications of the aorta. OSSEOUS STRUCTURES: No acute osseous abnormality identified. VISUALIZED UPPER ABDOMEN: Unremarkable. OTHER FINDINGS: None. IMPRESSION: Right IJ approach dialysis catheter with distal tips at the right atrium/cavoatrial junction. Mild venous congestion. Cardiomegaly. Dense atherosclerotic calcifications of the aorta.
--- NOTE | 2018-11-08 03:26 | PN ---
DATE: 11/07/2018 SUBJECTIVE: The patient was seen today, 11/07/2018. PHYSICAL EXAMINATION: VITAL SIGNS: Blood pressure 111/69, temperature 98.2, respiratory rate 18 and pulse 81. HEENT: Pupils equal, reactive to light. Normal-appearing mucosa of the conjunctivae, oropharynx and nasal membrane mucosa. NECK: Supple. No JVD, no carotid bruit. No lymph node. No thyromegaly. CHEST AND LUNGS: Bilateral symmetrical expansion. Good air exchange. No rales, no rhonchi. CARDIOVASCULAR SYSTEM: PMI not localized. S1, S2. No additional sounds. ABDOMEN: Normoactive bowel sounds. No tenderness, no organomegaly. No masses. EXTREMITIES: No cyanosis, no clubbing, no edema. TOOL SPECIALIST: Alert, awake, oriented x2. No neurological deficit could be appreciated. ASSESSMENT AND PLAN: End-stage renal disease. He has been converted from peritoneal dialysis into hemodialysis. The patient was scheduled for a Perm-A-Cath insertion today or tunneled catheter insertion for starting hemodialysis. Once the patient has a hemodialysis schedule outside, she will be discharged home. Kartik Hemphill MD
--- NOTE | 2018-11-08 04:03 | OP ---
PROCEDURE DATE: 11/07/2018 PREOPERATIVE DIAGNOSIS: Renal failure. POSTOPERATIVE DIAGNOSIS: Renal failure. PROCEDURES CARRIED OUT: 1. Placement of PermCath in right jugular vein with C-arm fluoroscopy, ultrasound-guided puncture and micropuncture technique. 2. Removal of peritoneal dialysis catheter. SURGEON: Wero Terrell Jr., MD CARPET SEWER: Dr. Gomez. ANESTHESIOLOGISTS: Staff anesthesiologists, Dr. Barragan and Teetee Santos. INDICATION FOR THE PROCEDURE: The patient is a middle-aged woman, on peritoneal dialysis for over six years. She now wants to switch to permanent hemodialysis. OPERATIVE FINDINGS: 1. It was difficult to place a jugular vein catheter as she previously had a catheter on this site, and there was some central venous stenosis. Nonetheless, we were unable to negotiate or away through this with the use of a Glidewire and a Berenstein catheter. When we get down into the inferior vena cava, I then placed the catheter uneventfully. 2. The catheter, which is in the peritoneum, was removed uneventfully including the distal cuff which was adjacent to the skin. DESCRIPTION OF PROCEDURE: The patient was given local anesthesia and intravenous antibiotics. Using ultrasound guidance, we punctured the vein. We advanced the wire certain distance, and then there was difficulty advancing it further. At this point, we then switched to 5-English sheath, placed the Berenstein catheter, took a venogram, which showed the central venous circulation. We then manipulated the catheter through this into the appropriate location down the inferior vena cava. We placed a standard larger dilator over this and positioned the catheter appropriately with excellent flow. After this had been done, the catheter was secured to the skin etc. We then went to the abdomen which was previously prepped and draped. We removed the catheter by traction. The cuff which was adjacent to this was then separately excised with a small incision. BLOOD LOSS: For both procedures is less than 25 mL. OPERATIONS: 1. PermCath in the right jugular vein with C-arm fluoroscopy, ultrasound-guided puncture, micropuncture technique and upper extremity venogram. 2. Removal of peritoneal dialysis catheter. Wero Terrell Jr., MD
--- NOTE | 2018-11-08 07:13 | CP.PCM.PN ---
<Tirso Lovell - Last Filed: 11/08/18 14:13> Subjective - Date & Time of Evaluation Date of Evaluation: 11/08/18 Time of Evaluation: 10:00 - Subjective Subjective: PGY1 medicine progress note for Dr. Lama, covering for Dr. Hemphill Pt seen and examined at bedside. No acute complaints. Reports tolerating Right permacath placement well yesterday, and tolerated HD well. PD catheter was also removed yesterday. Endorses some soreness at the permacath site. Denies fevers, chills, chest pain, SOB, palpitations, abdominal pain, n/v/d, headache, dizziness, lethargy, numbness or tingling, sharp pain at permacath site. Endorses constipation; no BM for 1 week, but passing gas. Objective - Vital Signs/Intake and Output Vital Signs (last 24 hours): Temp Pulse Resp BP Pulse Ox 99 F 76 20 176/93 H 95 11/08/18 04:25 11/08/18 04:25 11/08/18 04:25 11/08/18 04:25 11/08/18 04:25 - Medications Medications: Current Medications Acetaminophen (Tylenol 325mg Tab) 650 mg PO Q6 PRN PRN Reason: Pain, moderate (4-7) Acyclovir (Zovirax 5% Oint) 1 gm EXT BID [facility] Last Admin: 11/07/18 18:00 Dose: Not Given Dextrose (Dextrose 50% Inj) 0 ml IV STAT PRN; Protocol PRN Reason: Hypoglycemia Protocol Dextrose (Glutose 15) 0 gm PO ONCE PRN; Protocol PRN Reason: Hypoglycemia Protocol Folic Acid (Folic Acid) 1 mg PO DAILY [facility] Last Admin: 11/07/18 09:40 Dose: 1 mg Glucagon (Glucagen Diagnostic Kit) 0 mg IM STAT PRN; Protocol PRN Reason: Hypoglycemia Protocol Hydralazine HCl (Apresoline) 100 mg PO TID [facility] Last Admin: 11/07/18 18:00 Dose: Not Given Dextrose (Dextrose 5% In Water 1000 Ml) 1,000 mls @ 0 mls/hr IV .Q0M PRN; Protocol PRN Reason: Hypoglycemia Protocol Insulin Aspart (Novolog) 0 unit SC ACHS [facility]; Protocol Last Admin: 11/07/18 22:15 Dose: Not Given Mirtazapine (Remeron) 15 mg PO HS [facility] Last Admin: 11/07/18 22:15 Dose: 15 mg Pantoprazole Sodium (Protonix Ec Tab) 40 mg PO DAILY [facility] Last Admin: 11/07/18 09:40 Dose: 40 mg Rosuvastatin Calcium (Crestor) 10 mg PO HS [facility] Last Admin: 11/07/18 22:23 Dose: 10 mg Tramadol HCl (Ultram) 50 mg PO TID PRN PRN Reason: Pain, severe (8-10) - Labs Labs: 11/07/18 06:30 11/07/18 06:30 PT 12.5 SECONDS (9.7-12.2) H 11/06/18 11:26 INR 1.1 11/06/18 11:26 APTT 38.6 SECONDS (21-34) H 11/07/18 06:30 - Constitutional Appears: Non-toxic, No Acute Distress - Head Exam Head Exam: ATRAUMATIC, NORMAL INSPECTION - Eye Exam Eye Exam: EOMI, Normal appearance - ENT Exam ENT Exam: Mucous Membranes Moist Additional comments: (+) left upper lip with ulceration and cream overlying it, no active bleeding, no active discharge; minimal swelling of the left side of the face - Respiratory Exam Respiratory Exam: absent: Rales, Rhonchi, Wheezes, Respiratory Distress, Stridor, NORMAL BREATHING PATTERN - Cardiovascular Exam Cardiovascular Exam: Tachycardia, REGULAR RHYTHM, +S1, +S2 Additional comments: (+) right chest permacath; c/d/i; no active bleeding, no signs of acute infection, minimal soreness on palpation - GI/Abdominal Exam GI & Abdominal Exam: Normal Bowel Sounds. absent: Distended, Firm, Guarding, Soft, Tenderness Additional comments: (+) PD catheter removal site in lower abdomen with dressing; c/d/i, nontender, no signs of acute infection, no active bleeding - Extremities Exam Extremities Exam: Normal Capillary Refill, Normal Inspection. absent: Calf Tenderness, Pedal Edema - Back Exam Back Exam: NORMAL INSPECTION. absent: CVA tenderness (L), CVA tenderness (R) - Neurological Exam Neurological Exam: Alert, Awake, CN II-XII Intact - Psychiatric Exam Psychiatric exam: Normal Affect, Normal Mood - Skin Skin Exam: Dry, Intact, Normal Color, Warm Assessment and Plan (1) ESRD on hemodialysis Assessment & Plan: Nephrology, Dr. Perkins, consulted. TTS HD schedule Vascular surgery, Dr. Terrell, consulted for placement of Permacath, removal of PD catheter and eventual AVF creation (planned for next week) Tylenol, Ultram 50 mg PO TID for pain from permacath as per surgery team S/p first HD on 11/07/18; well tolerated S/p removal of PD catheter 11/07 F/u labs Status: Acute (2) Type 2 diabetes mellitus with diabetic nephropathy Assessment & Plan: Hgb A1c is 6.1 Accuchecks ACHS RISS Hypoglycemia protocol Status: Chronic (3) Constipated Assessment & Plan: Pt reports no BM for 1 week, denies abdominal pain. Pt with flatus. Will give Sennakot 1x/day and re-evaluate tomorrow morning Although Tramadol ordered, she has not asked for any doses yet Status: Acute (4) Hypertension Assessment & Plan: Hydralazine 100 mg PO TID as per nephrology Well controlled at this time Home Losartan not started May potentially add Amlodipine if uncontrolled with Hyrdralazine alone Rosuvastatin 10 mg PO QHS Status: Acute (5) Lip ulceration Assessment & Plan: Acyclovir 5% cream BID Continue to monitor Status: Acute (6) Prophylactic measure Assessment & Plan: SCDs Protonix 40 mg PO daily Status: Chronic - Assessment and Plan (Free Text) Assessment: Case discussed with Dr. Daina Lovell PGY1 <Keily Lama - Last Filed: 11/08/18 17:53> Objective - Vital Signs/Intake and Output Vital Signs (last 24 hours): Temp Pulse Resp BP Pulse Ox 99.4 F 81 18 164/83 H 99 11/08/18 15:32 11/08/18 15:32 11/08/18 15:32 11/08/18 15:32 11/08/18 15:32 - Medications Medications: Current Medications Acetaminophen (Tylenol 325mg Tab) 650 mg PO Q6 PRN PRN Reason: Pain, moderate (4-7) Acyclovir (Zovirax 5% Oint) 1 gm EXT BID [facility] Last Admin: 11/08/18 10:07 Dose: 1 appl Dextrose (Dextrose 50% Inj) 0 ml IV STAT PRN; Protocol PRN Reason: Hypoglycemia Protocol Dextrose (Glutose 15) 0 gm PO ONCE PRN; Protocol PRN Reason: Hypoglycemia Protocol Folic Acid (Folic Acid) 1 mg PO DAILY [facility] Last Admin: 11/08/18 10:05 Dose: 1 mg Glucagon (Glucagen Diagnostic Kit) 0 mg IM STAT PRN; Protocol PRN Reason: Hypoglycemia Protocol Hydralazine HCl (Apresoline) 100 mg PO TID [facility] Last Admin: 11/08/18 13:09 Dose: 100 mg Dextrose (Dextrose 5% In Water 1000 Ml) 1,000 mls @ 0 mls/hr IV .Q0M PRN; Protocol PRN Reason: Hypoglycemia Protocol Lactated Ringer's (Lactated Ringer's) 1,000 mls @ 100 mls/hr IV .Q10H [facility] Insulin Aspart (Novolog) 0 unit SC ACHS [facility]; Protocol Last Admin: 11/08/18 11:30 Dose: Not Given Mirtazapine (Remeron) 15 mg PO HS [facility] Last Admin: 11/07/18 22:15 Dose: 15 mg Pantoprazole Sodium (Protonix Ec Tab) 40 mg PO DAILY [facility] Last Admin: 11/08/18 10:05 Dose: 40 mg Rosuvastatin Calcium (Crestor) 10 mg PO HS [facility] Last Admin: 11/07/18 22:23 Dose: 10 mg Senna/Docusate Sodium (Senokot S 50 Mg-8.6 Mg) 1 tab PO DAILY [facility] Stop: 11/09/18 10:01 Last Admin: 11/08/18 13:09 Dose: 1 tab Tramadol HCl (Ultram) 50 mg PO TID PRN PRN Reason: Pain, severe (8-10) - Labs Labs: 11/08/18 14:08 11/08/18 14:08 PT 12.5 SECONDS (9.7-12.2) H 11/06/18 11:26 INR 1.1 11/06/18 11:26 APTT 38.6 SECONDS (21-34) H 11/07/18 06:30 Attending/Attestation - Attestation I have personally seen and examined this patient.: Yes I have fully participated in the care of the patient.: Yes I have reviewed all pertinent clinical information, including history, physical exam and plan: Yes Notes (Text): Covering Dr Marks's service. Patient was seen and examined with the resident. This is a 63 years old female with history of ESRD on dialysis was admitted for severe Uremia due to failed Peritoneal dialysis.Right IJ permacath placed and PD cath removed on 11/07/2018. She was dialysed on 11/07. Going for dialysis tomorrow.Planning of AVF next week. Patient also has history of hypertension and DM,we will monitor BP and sugar
[2018-11-08] MEDS: (Novolog) Insulin Aspart, Recombinant 100 u/ml 10 ml vial SC SCH ×4 (08:00→22:04)
--- NOTE | 2018-11-08 08:13 | RAD ---
INTRAOPERATIVE FLUOROSCOPY HISTORY: Permacath insertion. Renal failure TECHNIQUE/FINDINGS: Fluoroscopic guidance was provided by Radiology department. Please see operative report for full details. 5 images and 2 cine loops were provided. Total fluoroscopy time was 226.1 sec. IMPRESSION: As above
[2018-11-08] MEDS: Pantoprazole 40 mg EC Tab PO SCH (10:05)
[2018-11-08] MEDS: Acyclovir 5% Oint (15 gm) EXT SCH ×2 (10:07→17:47)
[2018-11-08] MEDS: Docusate-Senna 50 mg-8.6 mg Tab PO SCH (13:09)
--- NOTE | 2018-11-08 14:01 | CP.PCM.PN ---
Subjective - Date & Time of Evaluation Date of Evaluation: 11/08/18 Time of Evaluation: 13:58 - Subjective Subjective: post first dialysis 11/07 permcath inserted, PD cath removed feels same, still with anxiety AV F next week pending Objective - Vital Signs/Intake and Output Vital Signs (last 24 hours): Temp Pulse Resp BP Pulse Ox 99.5 F 83 18 163/89 H 98 11/08/18 07:00 11/08/18 13:08 11/08/18 13:08 11/08/18 13:08 11/08/18 12:00 - Medications Medications: Current Medications Acetaminophen (Tylenol 325mg Tab) 650 mg PO Q6 PRN PRN Reason: Pain, moderate (4-7) Acyclovir (Zovirax 5% Oint) 1 gm EXT BID [facility] Last Admin: 11/08/18 10:07 Dose: 1 appl Dextrose (Dextrose 50% Inj) 0 ml IV STAT PRN; Protocol PRN Reason: Hypoglycemia Protocol Dextrose (Glutose 15) 0 gm PO ONCE PRN; Protocol PRN Reason: Hypoglycemia Protocol Folic Acid (Folic Acid) 1 mg PO DAILY [facility] Last Admin: 11/08/18 10:05 Dose: 1 mg Glucagon (Glucagen Diagnostic Kit) 0 mg IM STAT PRN; Protocol PRN Reason: Hypoglycemia Protocol Hydralazine HCl (Apresoline) 100 mg PO TID [facility] Last Admin: 11/08/18 13:09 Dose: 100 mg Dextrose (Dextrose 5% In Water 1000 Ml) 1,000 mls @ 0 mls/hr IV .Q0M PRN; Protocol PRN Reason: Hypoglycemia Protocol Lactated Ringer's (Lactated Ringer's) 1,000 mls @ 100 mls/hr IV .Q10H [facility] Insulin Aspart (Novolog) 0 unit SC ACHS [facility]; Protocol Last Admin: 11/08/18 11:30 Dose: Not Given Mirtazapine (Remeron) 15 mg PO HS [facility] Last Admin: 11/07/18 22:15 Dose: 15 mg Pantoprazole Sodium (Protonix Ec Tab) 40 mg PO DAILY [facility] Last Admin: 11/08/18 10:05 Dose: 40 mg Rosuvastatin Calcium (Crestor) 10 mg PO HS [facility] Last Admin: 11/07/18 22:23 Dose: 10 mg Senna/Docusate Sodium (Senokot S 50 Mg-8.6 Mg) 1 tab PO DAILY [facility] Stop: 11/09/18 10:01 Last Admin: 11/08/18 13:09 Dose: 1 tab Tramadol HCl (Ultram) 50 mg PO TID PRN PRN Reason: Pain, severe (8-10) - Labs Labs: 11/07/18 06:30 11/07/18 06:30 PT 12.5 SECONDS (9.7-12.2) H 11/06/18 11:26 INR 1.1 11/06/18 11:26 APTT 38.6 SECONDS (21-34) H 11/07/18 06:30 - Constitutional Appears: No Acute Distress, Chronically Ill - Head Exam Head Exam: ATRAUMATIC, NORMAL INSPECTION - Eye Exam Eye Exam: EOMI, Normal appearance - Neck Exam Neck Exam: Normal Inspection. absent: Tenderness - Respiratory Exam Respiratory Exam: Clear to Ausculation Bilateral, NORMAL BREATHING PATTERN - Cardiovascular Exam Cardiovascular Exam: REGULAR RHYTHM, +S1 - GI/Abdominal Exam GI & Abdominal Exam: Soft. absent: Tenderness - Extremities Exam Extremities Exam: Normal Inspection. absent: Tenderness - Neurological Exam Neurological Exam: Awake, CN II-XII Intact - Skin Skin Exam: Dry, Warm Assessment and Plan (1) Type 2 diabetes mellitus with diabetic nephropathy Status: Acute (2) End stage renal disease due to benign hypertension Status: Acute (3) Uremia of renal origin Status: Acute (4) ESRD (end stage renal disease) Status: Acute - Assessment and Plan (Free Text) Plan: dialysis in AM AV access next week follow up chemistries
[2018-11-08 14:15] LABS: BASO % 0.3 % (0.0-2.0); EOS # 0.2 K/uL (0.0-0.7); EOS % 2.5 % (0.0-4.0); HEMOGLOBIN 12.6 g/dL (11.0-16.0); LYMPH # 0.9 K/uL (1.0-4.3); MEAN CELL VOLUME 90.2 fL (81.0-99.0); MEAN CORPUSCULAR HEMOGLOBIN 29.3 pg (27.0-31.0); MEAN CORPUSCULAR HGB CONC 32.5 g/dL (33.0-37.0); MEAN PLATELET VOLUME 8.4 fL (7.2-11.7); MONO # 0.7 K/uL (0.0-0.8); MONO % 9.8 % (0.0-10.0); NEUT # 5.4 K/uL (1.8-7.0); NEUT % 74.4 % (50.0-75.0); NRBC % 0.1 % (0.0-2.0); RBC 4.3 Mil/uL (3.80-5.20); RED CELL DISTRIBUTION WIDTH 19.3 % (11.5-14.5); WHITE BLOOD COUNT 7.3 K/uL (4.8-10.8)
[2018-11-08 14:50] LABS: ALB/GLOB RATIO 1.3 (1.0-2.1); ALBUMIN 3.7 g/dL (3.5-5.0); CALCIUM 9.5 mg/dl (8.6-10.4)
--- NOTE | 2018-11-09 01:42 | CP.PCM.PN ---
<DiazWendydi L - Last Filed: 11/09/18 01:39> Subjective - Date & Time of Evaluation Date of Evaluation: 11/09/18 Time of Evaluation: 01:39 - Subjective Subjective: Resident Progress Note for Hospitalist Service Patient examined at bedside. No acute events overnight. States she is feeling a bit fatigued, but denies any other complaints. Denies fevers, chills, chest pain, shortness of breath, abdominal pain, diarrhea, dysuria. Objective - Vital Signs/Intake and Output Vital Signs (last 24 hours): Temp Pulse Resp BP Pulse Ox 98.3 F 86 20 169/85 H 100 11/08/18 23:35 11/08/18 23:35 11/08/18 23:35 11/08/18 23:35 11/08/18 23:35 - Medications Medications: Current Medications Acetaminophen (Tylenol 325mg Tab) 650 mg PO Q6 PRN PRN Reason: Pain, moderate (4-7) Acyclovir (Zovirax 5% Oint) 1 gm EXT BID [facility] Last Admin: 11/08/18 17:47 Dose: 1 appl Dextrose (Dextrose 50% Inj) 0 ml IV STAT PRN; Protocol PRN Reason: Hypoglycemia Protocol Dextrose (Glutose 15) 0 gm PO ONCE PRN; Protocol PRN Reason: Hypoglycemia Protocol Folic Acid (Folic Acid) 1 mg PO DAILY [facility] Last Admin: 11/08/18 10:05 Dose: 1 mg Glucagon (Glucagen Diagnostic Kit) 0 mg IM STAT PRN; Protocol PRN Reason: Hypoglycemia Protocol Hydralazine HCl (Apresoline) 100 mg PO TID [facility] Last Admin: 11/08/18 17:46 Dose: 100 mg Dextrose (Dextrose 5% In Water 1000 Ml) 1,000 mls @ 0 mls/hr IV .Q0M PRN; Protocol PRN Reason: Hypoglycemia Protocol Lactated Ringer's (Lactated Ringer's) 1,000 mls @ 100 mls/hr IV .Q10H [facility] Insulin Aspart (Novolog) 0 unit SC ACHS [facility]; Protocol Last Admin: 11/08/18 22:04 Dose: Not Given Mirtazapine (Remeron) 15 mg PO HS [facility] Last Admin: 11/08/18 23:02 Dose: 15 mg Pantoprazole Sodium (Protonix Ec Tab) 40 mg PO DAILY [facility] Last Admin: 11/08/18 10:05 Dose: 40 mg Rosuvastatin Calcium (Crestor) 10 mg PO HS [facility] Last Admin: 11/08/18 23:02 Dose: 10 mg Senna/Docusate Sodium (Senokot S 50 Mg-8.6 Mg) 1 tab PO DAILY [facility] Stop: 11/09/18 10:01 Last Admin: 11/08/18 13:09 Dose: 1 tab Tramadol HCl (Ultram) 50 mg PO TID PRN PRN Reason: Pain, severe (8-10) - Labs Labs: 11/08/18 14:08 11/08/18 14:08 PT 12.5 SECONDS (9.7-12.2) H 11/06/18 11:26 INR 1.1 11/06/18 11:26 APTT 38.6 SECONDS (21-34) H 11/07/18 06:30 - Constitutional Appears: Non-toxic, No Acute Distress - Head Exam Head Exam: ATRAUMATIC, NORMOCEPHALIC - Eye Exam Eye Exam: EOMI, Normal appearance - ENT Exam ENT Exam: Mucous Membranes Moist Additional comments: (+) left upper lip with ulceration - Respiratory Exam Respiratory Exam: NORMAL BREATHING PATTERN. absent: Rales, Rhonchi, Wheezes, Respiratory Distress, Stridor - Cardiovascular Exam Cardiovascular Exam: Tachycardia, REGULAR RHYTHM, +S1, +S2 Additional comments: (+) right chest permacath; c/d/i - GI/Abdominal Exam GI & Abdominal Exam: Normal Bowel Sounds. absent: Distended, Firm, Guarding, Soft, Tenderness Additional comments: (+) PD catheter removal site in lower abdomen with dressing c/d/i - Extremities Exam Extremities Exam: Normal Inspection. absent: Calf Tenderness, Pedal Edema - Neurological Exam Neurological Exam: Alert, Awake, CN II-XII Intact - Psychiatric Exam Psychiatric exam: Normal Affect, Normal Mood - Skin Skin Exam: Dry, Intact, Normal Color, Warm Assessment and Plan - Assessment and Plan (Free Text) Plan: (1) ESRD on hemodialysis Assessment & Plan: Nephrology, Dr. Perkins, consulted. TTS HD schedule Vascular surgery, Dr. Terrell, consulted for placement of Permacath, removal of PD catheter and eventual AVF creation (planned for next week) Tylenol, Ultram 50 mg PO TID for pain from permacath as per surgery team S/p first HD on 11/07/18; well tolerated S/p removal of PD catheter 11/07 F/u labs Status: Acute (2) Type 2 diabetes mellitus with diabetic nephropathy Assessment & Plan: Hgb A1c is 6.1 Accuchecks ACHS RISS Hypoglycemia protocol Status: Chronic (3) Constipated Assessment & Plan: Pt reports no BM for 1 week, denies abdominal pain. Pt with flatus. Will give Sennakot 1x/day and re-evaluate tomorrow morning Although Tramadol ordered, she has not asked for any doses yet Status: Acute (4) Hypertension Assessment & Plan: Hydralazine 100 mg PO TID as per nephrology Well controlled at this time Home Losartan not started May potentially add Amlodipine if uncontrolled with Hyrdralazine alone Rosuvastatin 10 mg PO QHS Status: Acute (5) Lip ulceration Assessment & Plan: Acyclovir 5% cream BID Continue to monitor Status: Acute (6) Prophylactic measure Assessment & Plan: SCDs Protonix 40 mg PO daily Status: Chronic Betsy Diaz PGY-1 <Keily Lama - Last Filed: 11/09/18 17:14> Objective - Vital Signs/Intake and Output Vital Signs (last 24 hours): Temp Pulse Resp BP Pulse Ox 98.9 F 85 20 167/89 H 100 11/09/18 15:19 11/09/18 15:49 11/09/18 15:19 11/09/18 15:19 11/09/18 15:19 - Medications Medications: Current Medications Acetaminophen (Tylenol 325mg Tab) 650 mg PO Q6 PRN PRN Reason: Pain, moderate (4-7) Acyclovir (Zovirax 5% Oint) 1 gm EXT BID [facility] Last Admin: 11/08/18 17:47 Dose: 1 appl Dextrose (Dextrose 50% Inj) 0 ml IV STAT PRN; Protocol PRN Reason: Hypoglycemia Protocol Dextrose (Glutose 15) 0 gm PO ONCE PRN; Protocol PRN Reason: Hypoglycemia Protocol Folic Acid (Folic Acid) 1 mg PO DAILY [facility] Last Admin: 11/08/18 10:05 Dose: 1 mg Glucagon (Glucagen Diagnostic Kit) 0 mg IM STAT PRN; Protocol PRN Reason: Hypoglycemia Protocol Heparin Sodium (Porcine) (Heparin (For Dialysis)) 3,700 units IVP TTS [facility] Last Admin: 11/09/18 12:39 Dose: 3,700 units Hydralazine HCl (Apresoline) 100 mg PO TID [facility] Last Admin: 11/09/18 12:05 Dose: 100 mg Lactated Ringer's (Lactated Ringer's) 1,000 mls @ 100 mls/hr IV .Q10H [facility] Insulin Aspart (Novolog) 0 unit SC ACHS [facility]; Protocol Last Admin: 11/09/18 08:00 Dose: Not Given Mirtazapine (Remeron) 15 mg PO HS [facility] Last Admin: 11/08/18 23:02 Dose: 15 mg Pantoprazole Sodium (Protonix Ec Tab) 40 mg PO DAILY [facility] Last Admin: 11/08/18 10:05 Dose: 40 mg Rosuvastatin Calcium (Crestor) 10 mg PO HS [facility] Last Admin: 11/08/18 23:02 Dose: 10 mg Tramadol HCl (Ultram) 50 mg PO TID PRN PRN Reason: Pain, severe (8-10) Last Admin: 11/09/18 16:42 Dose: 50 mg - Labs Labs: 11/09/18 08:17 11/09/18 08:17 PT 12.5 SECONDS (9.7-12.2) H 11/06/18 11:26 INR 1.1 11/06/18 11:26 APTT 38.6 SECONDS (21-34) H 11/07/18 06:30 Attending/Attestation - Attestation I have personally seen and examined this patient.: Yes I have fully participated in the care of the patient.: Yes I have reviewed all pertinent clinical information, including history, physical exam and plan: Yes Notes (Text): seen and examined during dialysis,no complain,tolerating dialysis I agree with the resident's documentation. going for AV fistula next week. follow BP after dialysis
[2018-11-09] MEDS: (Novolog) Insulin Aspart, Recombinant 100 u/ml 10 ml vial SC SCH ×4 (08:00→22:00)
[2018-11-09 08:26] LABS: HEMOGLOBIN 11.8 g/dL (11.0-16.0); MEAN CELL VOLUME 90.1 fL (81.0-99.0); MEAN CORPUSCULAR HEMOGLOBIN 29.8 pg (27.0-31.0); MEAN CORPUSCULAR HGB CONC 33.1 g/dL (33.0-37.0); MEAN PLATELET VOLUME 8.2 fL (7.2-11.7); RBC 3.97 Mil/uL (3.80-5.20); RED CELL DISTRIBUTION WIDTH 18.5 % (11.5-14.5)
[2018-11-09 08:46] LABS: ALB/GLOB RATIO 1.1 (1.0-2.1); ALBUMIN 3.3 g/dL (3.5-5.0); CALCIUM 9.8 mg/dl (8.6-10.4)
[2018-11-09] MEDS: Acyclovir 5% Oint (15 gm) EXT SCH ×2 (09:00→17:46)
[2018-11-09] MEDS: Pantoprazole 40 mg EC Tab PO SCH (10:00)
[2018-11-09] MEDS: Docusate-Senna 50 mg-8.6 mg Tab PO SCH (10:00)
--- NOTE | 2018-11-09 10:20 | CP.PCM.PN ---
Subjective - Date & Time of Evaluation Date of Evaluation: 11/09/18 Time of Evaluation: 10:20 - Subjective Subjective: presently on dialysis feels well afebrile bp elevated ROS no chills fever no headache no chest pain palpitations no cough,sob no abd pain,n,v,d anuric no back or joint pain Objective - Vital Signs/Intake and Output Vital Signs (last 24 hours): Temp Pulse Resp BP Pulse Ox 97.3 F L 87 18 184/102 H 100 11/09/18 09:25 11/09/18 09:25 11/09/18 09:25 11/09/18 09:55 11/09/18 09:25 - Medications Medications: Current Medications Acetaminophen (Tylenol 325mg Tab) 650 mg PO Q6 PRN PRN Reason: Pain, moderate (4-7) Acyclovir (Zovirax 5% Oint) 1 gm EXT BID [facility] Last Admin: 11/08/18 17:47 Dose: 1 appl Dextrose (Dextrose 50% Inj) 0 ml IV STAT PRN; Protocol PRN Reason: Hypoglycemia Protocol Dextrose (Glutose 15) 0 gm PO ONCE PRN; Protocol PRN Reason: Hypoglycemia Protocol Folic Acid (Folic Acid) 1 mg PO DAILY [facility] Last Admin: 11/08/18 10:05 Dose: 1 mg Glucagon (Glucagen Diagnostic Kit) 0 mg IM STAT PRN; Protocol PRN Reason: Hypoglycemia Protocol Hydralazine HCl (Apresoline) 100 mg PO TID [facility] Last Admin: 11/08/18 17:46 Dose: 100 mg Dextrose (Dextrose 5% In Water 1000 Ml) 1,000 mls @ 0 mls/hr IV .Q0M PRN; Protocol PRN Reason: Hypoglycemia Protocol Lactated Ringer's (Lactated Ringer's) 1,000 mls @ 100 mls/hr IV .Q10H [facility] Insulin Aspart (Novolog) 0 unit SC ACHS [facility]; Protocol Last Admin: 11/09/18 08:00 Dose: Not Given Mirtazapine (Remeron) 15 mg PO HS [facility] Last Admin: 11/08/18 23:02 Dose: 15 mg Pantoprazole Sodium (Protonix Ec Tab) 40 mg PO DAILY [facility] Last Admin: 11/08/18 10:05 Dose: 40 mg Rosuvastatin Calcium (Crestor) 10 mg PO HS [facility] Last Admin: 11/08/18 23:02 Dose: 10 mg Tramadol HCl (Ultram) 50 mg PO TID PRN PRN Reason: Pain, severe (8-10) - Labs Labs: 11/09/18 08:17 11/09/18 08:17 PT 12.5 SECONDS (9.7-12.2) H 11/06/18 11:26 INR 1.1 11/06/18 11:26 APTT 38.6 SECONDS (21-34) H 11/07/18 06:30 - Constitutional Appears: Well, No Acute Distress - Head Exam Head Exam: ATRAUMATIC, NORMOCEPHALIC - ENT Exam ENT Exam: Mucous Membranes Moist - Respiratory Exam Respiratory Exam: Clear to Ausculation Bilateral, NORMAL BREATHING PATTERN - Cardiovascular Exam Cardiovascular Exam: REGULAR RHYTHM. absent: JVD - GI/Abdominal Exam GI & Abdominal Exam: Soft. absent: Distended, Tenderness - Extremities Exam Extremities Exam: absent: Calf Tenderness, Pedal Edema - Neurological Exam Neurological Exam: Alert, Awake - Skin Skin Exam: Dry, Warm Assessment and Plan (1) ESRD on hemodialysis Status: Acute (2) Hypertension Status: Acute (3) Secondary hyperparathyroidism Status: Acute - Assessment and Plan (Free Text) Plan: maintain present antihypertensives try to ultrafiltrate address bp post dialysis
--- NOTE | 2018-11-10 02:45 | CP.PCM.PN ---
<Betsy Diaz L - Last Filed: 11/10/18 02:43> Subjective - Date & Time of Evaluation Date of Evaluation: 11/10/18 Time of Evaluation: 02:43 - Subjective Subjective: Resident Progress Note for Hospitalist Service Patient examined at bedside. No acute events overnight. Resting comfortably in bed in no acute distress. Denies fevers, chills, chest pain, shortness of breath, abdominal pain, diarrhea, dysuria. Objective - Vital Signs/Intake and Output Vital Signs (last 24 hours): Temp Pulse Resp BP Pulse Ox 99.4 F 83 20 190/99 H 100 11/09/18 23:40 11/09/18 23:40 11/09/18 23:40 11/09/18 23:40 11/09/18 23:40 - Medications Medications: Current Medications Acetaminophen (Tylenol 325mg Tab) 650 mg PO Q6 PRN PRN Reason: Pain, moderate (4-7) Acyclovir (Zovirax 5% Oint) 1 gm EXT BID [facility] Last Admin: 11/09/18 17:46 Dose: 1 appl Dextrose (Dextrose 50% Inj) 0 ml IV STAT PRN; Protocol PRN Reason: Hypoglycemia Protocol Dextrose (Glutose 15) 0 gm PO ONCE PRN; Protocol PRN Reason: Hypoglycemia Protocol Folic Acid (Folic Acid) 1 mg PO DAILY [facility] Last Admin: 11/08/18 10:05 Dose: 1 mg Glucagon (Glucagen Diagnostic Kit) 0 mg IM STAT PRN; Protocol PRN Reason: Hypoglycemia Protocol Heparin Sodium (Porcine) (Heparin (For Dialysis)) 3,700 units IVP TTS [facility] Last Admin: 11/09/18 12:39 Dose: 3,700 units Hydralazine HCl (Apresoline) 100 mg PO TID [facility] Last Admin: 11/09/18 17:45 Dose: 100 mg Lactated Ringer's (Lactated Ringer's) 1,000 mls @ 100 mls/hr IV .Q10H [facility] Insulin Aspart (Novolog) 0 unit SC ACHS [facility]; Protocol Last Admin: 11/09/18 22:00 Dose: Not Given Mirtazapine (Remeron) 15 mg PO HS [facility] Last Admin: 11/09/18 22:00 Dose: 15 mg Pantoprazole Sodium (Protonix Ec Tab) 40 mg PO DAILY [facility] Last Admin: 11/08/18 10:05 Dose: 40 mg Rosuvastatin Calcium (Crestor) 10 mg PO HS [facility] Last Admin: 11/09/18 22:00 Dose: 10 mg Tramadol HCl (Ultram) 50 mg PO TID PRN PRN Reason: Pain, severe (8-10) Last Admin: 11/10/18 01:38 Dose: 50 mg - Labs Labs: 11/09/18 08:17 11/09/18 08:17 PT 12.5 SECONDS (9.7-12.2) H 11/06/18 11:26 INR 1.1 11/06/18 11:26 APTT 38.6 SECONDS (21-34) H 11/07/18 06:30 - Constitutional Appears: Non-toxic, No Acute Distress - Head Exam Head Exam: ATRAUMATIC, NORMOCEPHALIC - Eye Exam Eye Exam: EOMI, Normal appearance - ENT Exam ENT Exam: Mucous Membranes Moist Additional comments: (+) left upper lip with ulceration - Respiratory Exam Respiratory Exam: NORMAL BREATHING PATTERN. absent: Rales, Rhonchi, Wheezes, Respiratory Distress, Stridor - Cardiovascular Exam Cardiovascular Exam: Tachycardia, REGULAR RHYTHM, +S1, +S2 Additional comments: (+) right chest permacath; c/d/i - GI/Abdominal Exam GI & Abdominal Exam: Normal Bowel Sounds. absent: Distended, Firm, Guarding, Soft, Tenderness Additional comments: (+) PD catheter removal site in lower abdomen with dressing c/d/i - Extremities Exam Extremities Exam: Normal Inspection. absent: Calf Tenderness, Pedal Edema - Neurological Exam Neurological Exam: Alert, Awake, CN II-XII Intact - Psychiatric Exam Psychiatric exam: Normal Affect, Normal Mood - Skin Skin Exam: Dry, Intact, Normal Color, Warm Assessment and Plan - Assessment and Plan (Free Text) Plan: (1) ESRD on hemodialysis Assessment & Plan: Nephrology, Dr. Perkins, consulted. TTS HD schedule Vascular surgery, Dr. Terrell, consulted for placement of Permacath, removal of PD catheter and eventual AVF creation (planned for next week) Tylenol, Ultram 50 mg PO TID for pain from permacath as per surgery team S/p first HD on 11/07/18; well tolerated S/p removal of PD catheter 11/07 F/u labs Status: Acute (2) Type 2 diabetes mellitus with diabetic nephropathy Assessment & Plan: Hgb A1c is 6.1 Accucheckgenesis [facility] [facility] Hypoglycemia protocol Status: Chronic (3) Constipated Assessment & Plan: Will give Sennakot 1x/day and re-evaluate tomorrow morning Although Tramadol ordered, she has not asked for any doses yet Status: Acute (4) Hypertension Assessment & Plan: Hydralazine 100 mg PO TID as per nephrology Home Losartan not started May potentially add Amlodipine if uncontrolled with Hyrdralazine alone Rosuvastatin 10 mg PO QHS Status: Acute (5) Lip ulceration Assessment & Plan: Acyclovir 5% cream BID Continue to monitor Status: Acute (6) Prophylactic measure Assessment & Plan: SCDs Protonix 40 mg PO daily Status: Chronic Betsy Diaz PGY-1 <Keily Lama - Last Filed: 11/10/18 12:59> Objective - Vital Signs/Intake and Output Vital Signs (last 24 hours): Temp Pulse Resp BP Pulse Ox 97.9 F 80 18 190/103 H 100 11/10/18 07:30 11/10/18 09:55 11/10/18 07:30 11/10/18 09:55 11/10/18 07:30 - Medications Medications: Current Medications Acetaminophen (Tylenol 325mg Tab) 650 mg PO Q6 PRN PRN Reason: Pain, moderate (4-7) Acyclovir (Zovirax 5% Oint) 1 gm EXT BID [facility] Last Admin: 11/10/18 09:57 Dose: 1 appl Dextrose (Dextrose 50% Inj) 0 ml IV STAT PRN; Protocol PRN Reason: Hypoglycemia Protocol Dextrose (Glutose 15) 0 gm PO ONCE PRN; Protocol PRN Reason: Hypoglycemia Protocol Folic Acid (Folic Acid) 1 mg PO DAILY [facility] Last Admin: 11/10/18 09:57 Dose: 1 mg Glucagon (Glucagen Diagnostic Kit) 0 mg IM STAT PRN; Protocol PRN Reason: Hypoglycemia Protocol Heparin Sodium (Porcine) (Heparin (For Dialysis)) 3,700 units IVP TTS [facility] Last Admin: 11/09/18 12:39 Dose: 3,700 units Hydralazine HCl (Apresoline) 100 mg PO TID [facility] Last Admin: 11/10/18 09:57 Dose: 100 mg Lactated Ringer's (Lactated Ringer's) 1,000 mls @ 100 mls/hr IV .Q10H [facility] Insulin Aspart (Novolog) 0 unit SC ACHS [facility]; Protocol Last Admin: 11/10/18 11:26 Dose: 2 units Mirtazapine (Remeron) 15 mg PO HS [facility] Last Admin: 11/09/18 22:00 Dose: 15 mg Pantoprazole Sodium (Protonix Ec Tab) 40 mg PO DAILY [facility] Last Admin: 11/10/18 09:56 Dose: 40 mg Rosuvastatin Calcium (Crestor) 10 mg PO HS [facility] Last Admin: 11/09/18 22:00 Dose: 10 mg Tramadol HCl (Ultram) 50 mg PO TID PRN PRN Reason: Pain, severe (8-10) Last Admin: 11/10/18 01:38 Dose: 50 mg - Labs Labs: 11/09/18 08:17 11/09/18 08:17 PT 12.5 SECONDS (9.7-12.2) H 11/06/18 11:26 INR 1.1 11/06/18 11:26 APTT 38.6 SECONDS (21-34) H 11/07/18 06:30 Attending/Attestation - Attestation I have personally seen and examined this patient.: Yes I have fully participated in the care of the patient.: Yes I have reviewed all pertinent clinical information, including history, physical exam and plan: Yes Notes (Text): no complain,no sob going for AVF next week,continue dialysis as per groundskeeper
[2018-11-10] MEDS: (Novolog) Insulin Aspart, Recombinant 100 u/ml 10 ml vial SC SCH ×4 (07:30→22:38)
--- NOTE | 2018-11-10 09:52 | CARD ---
APPROVED REPORT Date of service: 11/06/2018 EKG Measurement Heart [id number] <Conclusion> Normal sinus rhythm Minimal voltage criteria for LVH, may be normal variant Septal infarct, age undetermined Abnormal ECG
[2018-11-10] MEDS: Pantoprazole 40 mg EC Tab PO SCH (09:56)
[2018-11-10] MEDS: Acyclovir 5% Oint (15 gm) EXT SCH ×2 (09:57→17:38)
--- NOTE | 2018-11-11 00:33 | CP.PCM.PN ---
<EdithAc - Last Filed: 11/11/18 00:32> Subjective - Date & Time of Evaluation Date of Evaluation: 11/11/18 Time of Evaluation: 00:32 - Subjective Subjective: HOSPITALIST SERVICE Pt s/e at bedside, denies any acute complaints overnight. understands current status, pending HD placement. Objective - Vital Signs/Intake and Output Vital Signs (last 24 hours): Temp Pulse Resp BP Pulse Ox 98 F 90 20 185/87 H 96 11/10/18 14:38 11/10/18 16:00 11/10/18 14:38 11/10/18 14:38 11/10/18 14:38 Intake and Output: 11/10/18 11/11/18 18:59 06:59 Intake Total 350 400 Balance 350 400 - Medications Medications: Current Medications Acetaminophen (Tylenol 325mg Tab) 650 mg PO Q6 PRN PRN Reason: Pain, moderate (4-7) Acyclovir (Zovirax 5% Oint) 1 gm EXT BID [facility] Last Admin: 11/10/18 17:38 Dose: 1 appl Dextrose (Dextrose 50% Inj) 0 ml IV STAT PRN; Protocol PRN Reason: Hypoglycemia Protocol Dextrose (Glutose 15) 0 gm PO ONCE PRN; Protocol PRN Reason: Hypoglycemia Protocol Folic Acid (Folic Acid) 1 mg PO DAILY [facility] Last Admin: 11/10/18 09:57 Dose: 1 mg Glucagon (Glucagen Diagnostic Kit) 0 mg IM STAT PRN; Protocol PRN Reason: Hypoglycemia Protocol Heparin Sodium (Porcine) (Heparin (For Dialysis)) 3,700 units IVP TTS [facility] Last Admin: 11/09/18 12:39 Dose: 3,700 units Hydralazine HCl (Apresoline) 100 mg PO TID [facility] Last Admin: 11/10/18 17:38 Dose: 100 mg Lactated Ringer's (Lactated Ringer's) 1,000 mls @ 100 mls/hr IV .Q10H [facility] Insulin Aspart (Novolog) 0 unit SC ACHS [facility]; Protocol Last Admin: 11/10/18 22:38 Dose: Not Given Mirtazapine (Remeron) 15 mg PO HS [facility] Last Admin: 11/10/18 22:06 Dose: 15 mg Pantoprazole Sodium (Protonix Ec Tab) 40 mg PO DAILY [facility] Last Admin: 11/10/18 09:56 Dose: 40 mg Rosuvastatin Calcium (Crestor) 10 mg PO HS [facility] Last Admin: 11/10/18 22:06 Dose: 10 mg Tramadol HCl (Ultram) 50 mg PO TID PRN PRN Reason: Pain, severe (8-10) Last Admin: 11/10/18 16:33 Dose: 50 mg - Labs Labs: 11/09/18 08:17 11/09/18 08:17 PT 12.5 SECONDS (9.7-12.2) H 11/06/18 11:26 INR 1.1 11/06/18 11:26 APTT 38.6 SECONDS (21-34) H 11/07/18 06:30 - Additional Findings Additional findings: - Constitutional Appears: Non-toxic, No Acute Distress - Head Exam Head Exam: ATRAUMATIC, NORMOCEPHALIC - Eye Exam Eye Exam: EOMI, Normal appearance - ENT Exam ENT Exam: Mucous Membranes Moist Additional comments: (+) left upper lip with ulceration - Respiratory Exam Respiratory Exam: NORMAL BREATHING PATTERN. absent: Rales, Rhonchi, Wheezes, Respiratory Distress, Stridor - Cardiovascular Exam Cardiovascular Exam: Tachycardia, REGULAR RHYTHM, +S1, +S2 Additional comments: (+) right chest permacath; c/d/i - GI/Abdominal Exam GI & Abdominal Exam: Normal Bowel Sounds. absent: Distended, Firm, Guarding, Soft, Tenderness Additional comments: (+) PD catheter removal site in lower abdomen with dressing c/d/i - Extremities Exam Extremities Exam: Normal Inspection. absent: Calf Tenderness, Pedal Edema - Neurological Exam Neurological Exam: Alert, Awake, CN II-XII Intact - Psychiatric Exam Psychiatric exam: Normal Affect, Normal Mood - Skin Skin Exam: Dry, Intact, Normal Color, Warm Assessment and Plan - Assessment and Plan (Free Text) Plan: (1) ESRD on hemodialysis Assessment & Plan: Nephrology, Dr. Perkins, consulted. TTS HD schedule Vascular surgery, Dr. Terrell, consulted for placement of Permacath, removal of PD catheter and eventual AVF creation (planned for next week) Tylenol, Ultram 50 mg PO TID for pain from permacath as per surgery team S/p first HD on 11/07/18; well tolerated S/p removal of PD catheter 11/07 F/u labs Status: Acute (2) Type 2 diabetes mellitus with diabetic nephropathy Assessment & Plan: Hgb A1c is 6.1 Accuchecks ACHS [facility] Hypoglycemia protocol Status: Chronic (3) Constipated Assessment & Plan: Will give Sennakot 1x/day and re-evaluate tomorrow morning Although Tramadol ordered, she has not asked for any doses yet Status: Acute (4) Hypertension Assessment & Plan: Hydralazine 100 mg PO TID as per nephrology Home Losartan not started May potentially add Amlodipine if uncontrolled with Hyrdralazine alone Rosuvastatin 10 mg PO QHS Status: Acute (5) Lip ulceration Assessment & Plan: Acyclovir 5% cream BID Continue to monitor Status: Acute (6) Prophylactic measure Assessment & Plan: SCDs Protonix 40 mg PO daily Status: Chronic <Keily Lama - Last Filed: 11/11/18 13:32> Objective - Vital Signs/Intake and Output Vital Signs (last 24 hours): Temp Pulse Resp BP Pulse Ox 98.6 F 80 20 155/91 H 99 11/11/18 07:00 11/11/18 13:26 11/11/18 07:00 11/11/18 13:26 11/11/18 07:00 Intake and Output: 11/11/18 11/11/18 06:59 18:59 Intake Total 400 Balance 400 - Medications Medications: Current Medications Acetaminophen (Tylenol 325mg Tab) 650 mg PO Q6 PRN PRN Reason: Pain, moderate (4-7) Acyclovir (Zovirax 5% Oint) 1 gm EXT BID [facility] Last Admin: 11/11/18 10:18 Dose: 1 appl Carvedilol (Coreg) 6.25 mg PO BID [facility] Last Admin: 11/11/18 11:53 Dose: 6.25 mg Dextrose (Dextrose 50% Inj) 0 ml IV STAT PRN; Protocol PRN Reason: Hypoglycemia Protocol Dextrose (Glutose 15) 0 gm PO ONCE PRN; Protocol PRN Reason: Hypoglycemia Protocol Folic Acid (Folic Acid) 1 mg PO DAILY [facility] Last Admin: 11/11/18 10:14 Dose: 1 mg Glucagon (Glucagen Diagnostic Kit) 0 mg IM STAT PRN; Protocol PRN Reason: Hypoglycemia Protocol Heparin Sodium (Porcine) (Heparin (For Dialysis)) 3,700 units IVP TTS [facility] Last Admin: 11/09/18 12:39 Dose: 3,700 units Hydralazine HCl (Apresoline) 100 mg PO TID [facility] Last Admin: 11/11/18 10:14 Dose: 100 mg Insulin Aspart (Novolog) 0 unit SC ACHS [facility]; Protocol Last Admin: 11/11/18 11:53 Dose: 2 units Mirtazapine (Remeron) 15 mg PO HS [facility] Last Admin: 11/10/18 22:06 Dose: 15 mg Pantoprazole Sodium (Protonix Ec Tab) 40 mg PO DAILY [facility] Last Admin: 11/11/18 10:13 Dose: 40 mg Rosuvastatin Calcium (Crestor) 10 mg PO HS [facility] Last Admin: 11/10/18 22:06 Dose: 10 mg Tramadol HCl (Ultram) 50 mg PO TID PRN PRN Reason: Pain, severe (8-10) Last Admin: 11/11/18 08:05 Dose: 50 mg - Labs Labs: 11/09/18 08:17 11/09/18 08:17 PT 12.5 SECONDS (9.7-12.2) H 11/06/18 11:26 INR 1.1 11/06/18 11:26 APTT 38.6 SECONDS (21-34) H 11/07/18 06:30 - Constitutional Appears: No Acute Distress - Head Exam Head Exam: NORMAL INSPECTION - Eye Exam Eye Exam: Normal appearance - ENT Exam ENT Exam: Mucous Membranes Moist - Neck Exam Neck Exam: Full ROM - Respiratory Exam Respiratory Exam: Clear to Ausculation Bilateral, NORMAL BREATHING PATTERN Attending/Attestation - Attestation I have personally seen and examined this patient.: Yes I have fully participated in the care of the patient.: Yes I have reviewed all pertinent clinical information, including history, physical exam and plan: Yes Notes (Text): seen and examined by me. patient has no complain,she wants to take shower,no sob Awaiting AV access surgery
[2018-11-11] MEDS: (Novolog) Insulin Aspart, Recombinant 100 u/ml 10 ml vial SC SCH ×4 (07:30→21:40)
[2018-11-11] MEDS: Pantoprazole 40 mg EC Tab PO SCH (10:13)
[2018-11-11] MEDS: Acyclovir 5% Oint (15 gm) EXT SCH ×2 (10:18→17:45)
--- NOTE | 2018-11-11 10:24 | CP.PCM.PN ---
Subjective - Date & Time of Evaluation Date of Evaluation: 11/11/18 Time of Evaluation: 10:21 - Subjective Subjective: feels better, increased appetite stable HD treatments so far HTN labile still awaiting AV access surgery Objective - Vital Signs/Intake and Output Vital Signs (last 24 hours): Temp Pulse Resp BP Pulse Ox 98.6 F 88 20 161/97 H 99 11/11/18 07:00 11/11/18 07:00 11/11/18 07:00 11/11/18 07:00 11/11/18 07:00 Intake and Output: 11/11/18 11/11/18 06:59 18:59 Intake Total 400 Balance 400 - Medications Medications: Current Medications Acetaminophen (Tylenol 325mg Tab) 650 mg PO Q6 PRN PRN Reason: Pain, moderate (4-7) Acyclovir (Zovirax 5% Oint) 1 gm EXT BID [facility] Last Admin: 11/11/18 10:18 Dose: 1 appl Dextrose (Dextrose 50% Inj) 0 ml IV STAT PRN; Protocol PRN Reason: Hypoglycemia Protocol Dextrose (Glutose 15) 0 gm PO ONCE PRN; Protocol PRN Reason: Hypoglycemia Protocol Folic Acid (Folic Acid) 1 mg PO DAILY [facility] Last Admin: 11/11/18 10:14 Dose: 1 mg Glucagon (Glucagen Diagnostic Kit) 0 mg IM STAT PRN; Protocol PRN Reason: Hypoglycemia Protocol Heparin Sodium (Porcine) (Heparin (For Dialysis)) 3,700 units IVP TTS [facility] Last Admin: 11/09/18 12:39 Dose: 3,700 units Hydralazine HCl (Apresoline) 100 mg PO TID [facility] Last Admin: 11/11/18 10:14 Dose: 100 mg Lactated Ringer's (Lactated Ringer's) 1,000 mls @ 100 mls/hr IV .Q10H [facility] Insulin Aspart (Novolog) 0 unit SC ACHS [facility]; Protocol Last Admin: 11/11/18 07:30 Dose: Not Given Mirtazapine (Remeron) 15 mg PO HS [facility] Last Admin: 11/10/18 22:06 Dose: 15 mg Pantoprazole Sodium (Protonix Ec Tab) 40 mg PO DAILY [facility] Last Admin: 11/11/18 10:13 Dose: 40 mg Rosuvastatin Calcium (Crestor) 10 mg PO HS [facility] Last Admin: 11/10/18 22:06 Dose: 10 mg Tramadol HCl (Ultram) 50 mg PO TID PRN PRN Reason: Pain, severe (8-10) Last Admin: 11/11/18 08:05 Dose: 50 mg - Labs Labs: 11/09/18 08:17 11/09/18 08:17 PT 12.5 SECONDS (9.7-12.2) H 11/06/18 11:26 INR 1.1 11/06/18 11:26 APTT 38.6 SECONDS (21-34) H 11/07/18 06:30 - Constitutional Appears: No Acute Distress, Chronically Ill - Head Exam Head Exam: ATRAUMATIC, NORMAL INSPECTION - Eye Exam Eye Exam: EOMI, Normal appearance - Neck Exam Neck Exam: Normal Inspection. absent: Tenderness - Cardiovascular Exam Cardiovascular Exam: REGULAR RHYTHM, +S1 - GI/Abdominal Exam GI & Abdominal Exam: Soft. absent: Tenderness - Extremities Exam Extremities Exam: Normal Inspection. absent: Tenderness - Neurological Exam Neurological Exam: Awake, CN II-XII Intact - Skin Skin Exam: Dry, Warm Assessment and Plan (1) Type 2 diabetes mellitus with diabetic nephropathy Status: Chronic (2) End stage renal disease due to benign hypertension Status: Acute (3) Uremia of renal origin Status: Acute (4) ESRD (end stage renal disease) Status: Acute - Assessment and Plan (Free Text) Plan: change dialysis today AV access surgery tentatively for AM adjust BP meds will need HD placement
--- NOTE | 2018-11-11 15:02 | CP.PCM.PCO ---
Physician Communication Note - Physician Communication Note Physician Communication Note: OR for AVF 11/12/18. Consent obtained and on chart
[2018-11-11 20:12] LABS: MEAN CELL VOLUME 90.4 fL (81.0-99.0); MEAN CORPUSCULAR HEMOGLOBIN 29.4 pg (27.0-31.0); MEAN CORPUSCULAR HGB CONC 32.5 g/dL (33.0-37.0); RBC 4.1 Mil/uL (3.80-5.20); RED CELL DISTRIBUTION WIDTH 18.4 % (11.5-14.5); WHITE BLOOD COUNT 6.2 K/uL (4.8-10.8)
[2018-11-11 20:54] LABS: ALB/GLOB RATIO 1.4 (1.0-2.1); ALBUMIN 4.3 g/dL (3.5-5.0); CALCIUM 9.5 mg/dl (8.6-10.4)
[2018-11-11] MEDS ORDERED: Lactated Ringer's 1,000 ML IV SCH ×2 (23:55)
--- NOTE | 2018-11-12 07:28 | CP.PCM.PN ---
<Tirso Lovell - Last Filed: 11/12/18 15:00> Subjective - Date & Time of Evaluation Date of Evaluation: 11/12/18 Time of Evaluation: 07:25 - Subjective Subjective: PGY1 medicine progress note for Dr. Zamora covering for Dr. Hemphill Pt seen and examined at bedside. No acute complaints. Reports tolerating HD well. Pt to go for creation of AVF today. Denies fevers, chills, chest pain, SOB, palpitations, abdominal pain, n/v/d, headache, dizziness, lethargy, numbness or tingling, sharp pain at permacath site. Objective - Vital Signs/Intake and Output Vital Signs (last 24 hours): Temp Pulse Resp BP Pulse Ox 99.0 F 77 20 155/78 H 94 L 11/12/18 04:20 11/12/18 04:20 11/12/18 04:20 11/12/18 04:20 11/12/18 04:20 Intake and Output: 11/12/18 11/12/18 06:59 18:59 Intake Total 240 Balance 240 - Medications Medications: Current Medications Acetaminophen (Tylenol 325mg Tab) 650 mg PO Q6 PRN PRN Reason: Pain, moderate (4-7) Acyclovir (Zovirax 5% Oint) 1 gm EXT BID [facility] Last Admin: 11/11/18 17:45 Dose: Not Given Carvedilol (Coreg) 6.25 mg PO BID [facility] Last Admin: 11/11/18 17:44 Dose: Not Given Dextrose (Dextrose 50% Inj) 0 ml IV STAT PRN; Protocol PRN Reason: Hypoglycemia Protocol Dextrose (Glutose 15) 0 gm PO ONCE PRN; Protocol PRN Reason: Hypoglycemia Protocol Folic Acid (Folic Acid) 1 mg PO DAILY [facility] Last Admin: 11/11/18 10:14 Dose: 1 mg Glucagon (Glucagen Diagnostic Kit) 0 mg IM STAT PRN; Protocol PRN Reason: Hypoglycemia Protocol Heparin Sodium (Porcine) (Heparin (For Dialysis)) 3,700 units IVP TTS [facility] Last Admin: 11/11/18 17:41 Dose: 3,700 units Hydralazine HCl (Apresoline) 100 mg PO TID [facility] Last Admin: 11/11/18 17:29 Dose: 100 mg Insulin Aspart (Novolog) 0 unit SC ACHS [facility]; Protocol Last Admin: 11/11/18 21:40 Dose: Not Given Mirtazapine (Remeron) 15 mg PO HS [facility] Last Admin: 11/11/18 21:05 Dose: 15 mg Pantoprazole Sodium (Protonix Ec Tab) 40 mg PO DAILY [facility] Last Admin: 11/11/18 10:13 Dose: 40 mg Rosuvastatin Calcium (Crestor) 10 mg PO HS [facility] Last Admin: 11/11/18 21:05 Dose: 10 mg Tramadol HCl (Ultram) 50 mg PO TID PRN PRN Reason: Pain, severe (8-10) Last Admin: 11/11/18 08:05 Dose: 50 mg - Labs Labs: 11/11/18 20:08 11/11/18 20:08 PT 12.5 SECONDS (9.7-12.2) H 11/06/18 11:26 INR 1.1 11/06/18 11:26 APTT 38.6 SECONDS (21-34) H 11/07/18 06:30 - Additional Findings Additional findings: - Constitutional Appears: Non-toxic, No Acute Distress - Head Exam Head Exam: ATRAUMATIC, NORMAL INSPECTION - Eye Exam Eye Exam: EOMI, Normal appearance - ENT Exam ENT Exam: Mucous Membranes Moist Additional comments: (+) left upper lip with healing ulceration and cream overlying it, no active bleeding, no active discharge; minimal swelling of the left side of the face - Respiratory Exam Respiratory Exam: absent: Rales, Rhonchi, Wheezes, Respiratory Distress, Stridor, NORMAL BREATHING PATTERN - Cardiovascular Exam Cardiovascular Exam: REGULAR RHYTHM, +S1, +S2. Absent: tachycardia Additional comments: (+) right chest permacath; c/d/i; no active bleeding, no signs of acute infection, minimal soreness on palpation - GI/Abdominal Exam GI & Abdominal Exam: Normal Bowel Sounds. absent: Distended, Firm, Guarding, Soft, Tenderness Additional comments: (+) PD catheter removal site in lower abdomen with dressing; c/d/i, nontender, no signs of acute infection, no active bleeding - Extremities Exam Extremities Exam: Normal Capillary Refill, Normal Inspection. absent: Calf Tenderness, Pedal Edema - Back Exam Back Exam: NORMAL INSPECTION. absent: CVA tenderness (L), CVA tenderness (R) - Neurological Exam Neurological Exam: Alert, Awake - Psychiatric Exam Psychiatric exam: Normal Affect, Normal Mood - Skin Skin Exam: Dry, Intact, Normal Color, Warm Assessment and Plan (1) ESRD on hemodialysis Assessment & Plan: Nephrology, Dr. Perkins, consulted. TTS HD schedule Vascular surgery, Dr. Terrell, consulted for placement of Permacath, removal of PD catheter and AVF creation Tylenol, Ultram 50 mg PO TID for pain from permacath as per surgery team S/p first HD on 11/07/18; well tolerated S/p removal of PD catheter 11/07 To go for AVF creation today with Dr. Terrell Status: Acute (2) Type 2 diabetes mellitus with diabetic nephropathy Assessment & Plan: Hgb A1c is 6.1 Accuchecks ACHS RISS Hypoglycemia protocol Status: Chronic (3) Constipated Status: Resolved (4) Hypertension Assessment & Plan: Hydralazine 100 mg PO TID as per nephrology Well controlled at this time Home Losartan not started Amlodipine 5 mg PO daily Coreg 6.25 mg PO BID Hyd[facility]azine 10 mg IVP Q6H PRN SBP>160 Rosuvastatin 10 mg PO QHS Status: Acute (5) Lip ulceration Assessment & Plan: Acyclovir 5% cream BID Continue to monitor Status: Acute (6) Prophylactic measure Assessment & Plan: SCDs Protonix 40 mg PO daily Case discussed with Dr. Sera Lovell PGY1 Status: Chronic <David Zamora H - Last Filed: 11/12/18 15:06> Objective - Vital Signs/Intake and Output Vital Signs (last 24 hours): Temp Pulse Resp BP Pulse Ox 99.0 F 79 18 191/81 H 94 L 11/12/18 07:20 11/12/18 07:20 11/12/18 07:20 11/12/18 07:20 11/12/18 07:20 Intake and Output: 11/12/18 11/12/18 06:59 18:59 Intake Total 240 400 Balance 240 400 - Medications Medications: Current Medications Acetaminophen (Tylenol 325mg Tab) 650 mg PO Q6 PRN PRN Reason: Pain, moderate (4-7) Acyclovir (Zovirax 5% Oint) 1 gm EXT BID [facility] Last Admin: 11/11/18 17:45 Dose: Not Given Amlodipine Besylate (Norvasc) 5 mg PO DAILY [facility] Carvedilol (Coreg) 6.25 mg PO BID [facility] Last Admin: 11/12/18 08:49 Dose: 6.25 mg Dextrose (Dextrose 50% Inj) 0 ml IV STAT PRN; Protocol PRN Reason: Hypoglycemia Protocol Dextrose (Glutose 15) 0 gm PO ONCE PRN; Protocol PRN Reason: Hypoglycemia Protocol Folic Acid (Folic Acid) 1 mg PO DAILY [facility] Last Admin: 11/11/18 10:14 Dose: 1 mg Glucagon (Glucagen Diagnostic Kit) 0 mg IM STAT PRN; Protocol PRN Reason: Hypoglycemia Protocol Heparin Sodium (Porcine) (Heparin (For Dialysis)) 3,[place] [facility] [place]dralazine HCl (Apresoline) 100 mg PO TID [facility] Last Admin: 11/12/18 08:49 Dose: 100 mg Hydralazine HCl (Apresoline) 10 mg IVP Q6H PRN PRN Reason: SBP>160 Hydromorphone HCl (Dilaudid) 0.5 mg IVP Q5M PRN PRN Reason: Pain, severe (8-10) Stop: 11/12/18 16:05 Insulin Aspart (Novolog) 0 unit SC [facility]; Protocol Last Admin: 11/12/18 07:30 Dose: Not Given Mirtazapine (Remeron) 15 mg PO [facility] Last Admin: 11/11/18 21:05 Dose: 15 mg Ondansetron HCl (Zofran Inj) 4 mg IVP ONCE PRN PRN Reason: Nausea/Vomiting Stop: 11/12/18 16:05 Pantoprazole Sodium (Protonix Ec Tab) 40 mg PO DAILY [facility] Last Admin: 11/11/18 10:13 Dose: 40 mg Rosuvastatin Calcium (Crestor) 10 mg PO HS [facility] Last Admin: 11/11/18 21:05 Dose: 10 mg Tramadol HCl (Ultram) 50 mg PO TID PRN PRN Reason: Pain, severe (8-10) Last Admin: 11/11/18 08:05 Dose: 50 mg - Labs Labs: 11/12/18 07:33 11/12/18 07:33 PT 12.4 SECONDS (9.7-12.2) H 11/12/18 07:33 INR 1.1 11/12/18 07:33 APTT 37.2 SECONDS (21-34) H 11/12/18 07:33 Attending/Attestation - Attestation I have personally seen and examined this patient.: Yes I have fully participated in the care of the patient.: Yes I have reviewed all pertinent clinical information, including history, physical exam and plan: Yes Notes (Text): 11/12/18 15:04 Medical attending: Patient was seen and examined by me. Agree with the above note by the resident The patient was pending HD placement as well as AVF creation. Norvasc was added as her BP is elevated Also PRN Hydralazine IV as well was added David Zamora
[2018-11-12] MEDS: (Novolog) Insulin Aspart, Recombinant 100 u/ml 10 ml vial SC SCH ×4 (07:30→22:00)
[2018-11-12 07:54] LABS: BASO % 0.3 % (0.0-2.0); EOS # 0.1 K/uL (0.0-0.7); EOS % 2.3 % (0.0-4.0); HEMOGLOBIN 11.3 g/dL (11.0-16.0); LYMPH # 1.1 K/uL (1.0-4.3); LYMPH % 17.4 % (20.0-40.0); MEAN CELL VOLUME 89.7 fL (81.0-99.0); MEAN CORPUSCULAR HEMOGLOBIN 29.5 pg (27.0-31.0); MEAN CORPUSCULAR HGB CONC 32.8 g/dL (33.0-37.0); MEAN PLATELET VOLUME 8.1 fL (7.2-11.7); MONO % 16.1 % (0.0-10.0); NEUT % 63.9 % (50.0-75.0); RBC 3.83 Mil/uL (3.80-5.20); WHITE BLOOD COUNT 6.3 K/uL (4.8-10.8)
--- NOTE | 2018-11-12 08:04 | CP.PCM.PN ---
Subjective - Date & Time of Evaluation Date of Evaluation: 11/12/18 Time of Evaluation: 08:00 - Subjective Subjective: afebrile bp remains mildly elevated dialysis last PM comfortable in bed ROS no chills fever no chest pain palpitations no sob or cough no further abd pain,n,v,d anuric no back or joint pain no rash pruritus n headache dizziness Objective - Vital Signs/Intake and Output Vital Signs (last 24 hours): Temp Pulse Resp BP Pulse Ox 99.0 F 77 20 155/78 H 94 L 11/12/18 04:20 11/12/18 04:20 11/12/18 04:20 11/12/18 04:20 11/12/18 04:20 Intake and Output: 11/12/18 11/12/18 06:59 18:59 Intake Total 240 Balance 240 - Medications Medications: Current Medications Acetaminophen (Tylenol 325mg Tab) 650 mg PO Q6 PRN PRN Reason: Pain, moderate (4-7) Acyclovir (Zovirax 5% Oint) 1 gm EXT BID [facility] Last Admin: 11/11/18 17:45 Dose: Not Given Carvedilol (Coreg) 6.25 mg PO BID [facility] Last Admin: 11/11/18 17:44 Dose: Not Given Dextrose (Dextrose 50% Inj) 0 ml IV STAT PRN; Protocol PRN Reason: Hypoglycemia Protocol Dextrose (Glutose 15) 0 gm PO ONCE PRN; Protocol PRN Reason: Hypoglycemia Protocol Folic Acid (Folic Acid) 1 mg PO DAILY [facility] Last Admin: 11/11/18 10:14 Dose: 1 mg Glucagon (Glucagen Diagnostic Kit) 0 mg IM STAT PRN; Protocol PRN Reason: Hypoglycemia Protocol Heparin Sodium (Porcine) (Heparin (For Dialysis)) 3,700 units IVP TTS [facility] Last Admin: 11/11/18 17:41 Dose: 3,700 units Hydralazine HCl (Apresoline) 100 mg PO TID [facility] Last Admin: 11/11/18 17:29 Dose: 100 mg Insulin Aspart (Novolog) 0 unit SC ACHS [facility]; Protocol Last Admin: 11/11/18 21:40 Dose: Not Given Mirtazapine (Remeron) 15 mg PO HS [facility] Last Admin: 11/11/18 21:05 Dose: 15 mg Pantoprazole Sodium (Protonix Ec Tab) 40 mg PO DAILY [facility] Last Admin: 11/11/18 10:13 Dose: 40 mg Rosuvastatin Calcium (Crestor) 10 mg PO HS [facility] Last Admin: 11/11/18 21:05 Dose: 10 mg Tramadol HCl (Ultram) 50 mg PO TID PRN PRN Reason: Pain, severe (8-10) Last Admin: 11/11/18 08:05 Dose: 50 mg - Labs Labs: 11/12/18 07:33 11/11/18 20:08 PT 12.5 SECONDS (9.7-12.2) H 11/06/18 11:26 INR 1.1 11/06/18 11:26 APTT 38.6 SECONDS (21-34) H 11/07/18 06:30 - Constitutional Appears: Well, No Acute Distress - Head Exam Head Exam: ATRAUMATIC, NORMOCEPHALIC - ENT Exam ENT Exam: Mucous Membranes Moist - Respiratory Exam Respiratory Exam: Clear to Ausculation Bilateral, NORMAL BREATHING PATTERN - Cardiovascular Exam Cardiovascular Exam: REGULAR RHYTHM. absent: JVD - GI/Abdominal Exam GI & Abdominal Exam: Soft. absent: Distended, Tenderness Additional comments: bandage over abd noted - Extremities Exam Extremities Exam: absent: Calf Tenderness, Pedal Edema - Back Exam Back Exam: absent: CVA tenderness (L), CVA tenderness (R) - Neurological Exam Neurological Exam: Alert, Awake - Psychiatric Exam Psychiatric exam: absent: Anxious, Depressed - Skin Skin Exam: Dry, Warm Assessment and Plan (1) ESRD on hemodialysis Status: Acute (2) Hypertension Status: Acute (3) Secondary hyperparathyroidism Status: Acute - Assessment and Plan (Free Text) Plan: await outpatient dislysis placement dialysis 11/13 orders written to ultrafiltrate add norvasc 5 to regimen
[2018-11-12 08:17] LABS: INR 1.1; PARTIAL THROMBOPLASTIN TIME 37.2 SECONDS (21-34); PROTHROMBIN TIME 12.4 SECONDS (9.7-12.2)
[2018-11-12 08:22] LABS: ALB/GLOB RATIO 1.2 (1.0-2.1); ALBUMIN 3.5 g/dL (3.5-5.0); CALCIUM 9.2 mg/dl (8.6-10.4)
--- NOTE | 2018-11-12 09:40 | VASCLAB ---
Date of service: 11/08/2018 PROCEDURE: Upper Extremity Venous Duplex Exam HISTORY: pre AVF planning PRIORS: None. TECHNIQUE: Bilateral upper extremity, internal jugular, subclavian, axillary, brachial, ulnar, radial, basilic and upper cephalic veins were evaluated. Flow was assessed with color Doppler, compressibility, assessment of phasic flow and augmentation response. Report prepared by Donaldo Abad, BS, RVT FINDINGS: RIGHT: 1. Internal Jugular Vein: Compressibility - Fully compressible: Thrombus - None : Flow - Phasic 2. Subclavian Vein:Compressibility - Fully compressible: Thrombus - None : Flow - Phasic 3. Axillary Vein: Compressibility - Fully compressible: Thrombus - None 4. Brachial Vein: Compressibility - Fully compressible: Thrombus - None 5. Ulnar Vein:Compressibility - Fully compressible: Thrombus - None 6. Radial Vein:Compressibility - Fully compressible: Thrombus - None 7. Cephalic Vein: Compressibility - Fully compressible: thrombus - None 7.1. Upper Arm: Proximal Diameter: 0.22cm. Mid Diameter: 0.18cm. Distal Diameter: 0.21cm. Antecubital Fossa Diameter: 0.33cm 7.2. Forearm: Proximal Diameter: 0.28cm. Mid Diameter:0.27cm. Distal Diameter: cm 8. Basilic Vein:Compressibility - Fully compressible: thrombus - None 8.1. Upper Arm:Proximal Diameter: 0.33cm. Mid Diameter: 0.26cm. Distal Diameter: 0.26cm. Antecubital Fossa Diameter: 0.39cm 8.2. Forearm: Proximal Diameter: 0.21cm. Mid Diameter:0.25cm. Distal Diameter: 0.21cm. LEFT: 1. Internal Jugular Vein: Compressibility - Fully compressible: Thrombus - None : Flow - Phasic 2. Subclavian Vein:Compressibility - Fully compressible: Thrombus - None : Flow - Phasic 3. Axillary Vein: Compressibility - Fully compressible: Thrombus - None 4. Brachial Vein: Compressibility - Fully compressible: Thrombus - None 5. Ulnar Vein:Compressibility - Fully compressible: Thrombus - None 6. Radial Vein:Compressibility - Fully compressible: Thrombus - None 7. Cephalic Vein: Compressibility - Fully compressible: thrombus - None 7.1. Upper Arm: Proximal Diameter: 0.27cm. Mid Diameter: cm. Distal Diameter: 0.22cm. Antecubital Fossa Diameter: cm 7.2. Forearm: Proximal Diameter: cm. Mid Diameter:cm. Distal Diameter: cm 8. Basilic Vein:Compressibility - Fully compressible: thrombus - None 8.1. Upper Arm:Proximal Diameter: 0.26cm. Mid Diameter: 0.24cm. Distal Diameter: 0.23cm. Antecubital Fossa Diameter: 0.24cm 8.2. Forearm: Proximal Diameter: 0.17cm. Mid Diameter:cm. Distal Diameter: cm. OTHER FINDINGS: Right: None. Left: None. IMPRESSION: Right: Acute superficial vein thrombosis of the right mid to distal forearm cephalic vein. Diameter measurements of the right cephalic vein is measured between 0.18 cm and 0.33 cm and basilic vein is measured between 0.21 cm and 0.39 cm. Left: Acute superficial vein thrombosis of the left forearm cephalic vein. Diameter measurements of the left cephalic vein is measured between 0.22 cm and 0.27 cm and basilic vein is measured between 0.17cm and 0.26cm.
[2018-11-12] MEDS: Pantoprazole 40 mg EC Tab PO SCH (10:30)
[2018-11-12] MEDS: Acyclovir 5% Oint (15 gm) EXT SCH ×2 (10:30→17:37)
[2018-11-12] MEDS ORDERED: ceFAZolin 1 gm in NS 1 GM/100 ML BAG IVPB ONE (11:44)
[2018-11-12] MEDS ORDERED: HEPARIN-NS 5,000 UNITS/500 ML 5,000 UNIT/500 ML BAG IV ONE (11:44)
[2018-11-12] MEDS ORDERED: Propofol 10 mg/ml Inj (20 ML) ONE (12:10)
[2018-11-12] MEDS ORDERED: Midazolam 2 MG/2 ML VIAL ONE (12:10)
[2018-11-12] MEDS ORDERED: ePHEDrine 50 mg/ml Inj ONE (12:40)
[2018-11-12] MEDS ORDERED: Phenylephrine 10 mg/ml Inj ONE (12:56)
--- NOTE | 2018-11-12 14:04 | PCM.SURG1 ---
Surgeon's Initial Post Op Note - Surgeon's Notes Surgeon: Wero Terrell MD Clinical Business Analyst: Dorota Rosenthal, PGY-2 Type of Anesthesia: General LMA Anesthesia Administered By: Dr. Sifuentes Pre-Operative Diagnosis: ESRD requiring longterm HD Operative Findings: see op report Post-Operative Diagnosis: ESRD requiring sous chef HD Operation Performed: LUE AVF creation Specimen/Specimens Removed: None Estimated Blood Loss: EBL {In ML}: 15 Blood Products Given: N/A Drains Used: No Drains Post-Op Condition: Good Date of Surgery/Procedure: 11/12/18 Time of Surgery/Procedure: 14:04
[2018-11-12] MEDS ORDERED: HYDROmorphone 0.5 mg/0.5 ml ISec IVP PRN (14:05)
--- NOTE | 2018-11-13 01:22 | OP ---
PROCEDURE DATE: 11/12/2018 PREOPERATIVE DIAGNOSIS: Renal failure. POSTOPERATIVE DIAGNOSIS: Renal failure. PROCEDURE: Claude fistula, left wrist. SURGEON: Wero Terrell Jr., MD [place] [facility] VESSEL OPERATOR: Dorota Rosenthal DO ANESTHESIOLOGIST: . TYPE OF ANESTHESIA: General anesthesia. INDICATIONS: The patient is a middle-aged woman, previously on peritoneal dialysis, now wants to switch to hemodialysis. She was started on a PermCath the other day and initiated dialysis. OPERATIVE FINDINGS: Initially, we planned to place the fistula at the elbow. The cephalic vein was of inadequate size, but the basilic vein was very good. We then, however, on ultrasound and examination were able to find a fairly good cephalic vein at the wrist after the patient was asleep, and then we carried out a Claude-type fistula. The fistula was done using loupe magnification, heparin anticoagulation with 6-0 Prolene sutures. At the end of the procedure, there was excellent flow to the fistula. BLOOD LOSS FOR THE PROCEDURE: 15 mL. DESCRIPTION OF PROCEDURE: The patient was given general anesthesia and intravenous antibiotics. Venodyne boots were applied. Ultrasound examination was carried out of the veins in the arms. Eventually, we found a fairly good vein at the wrist and then created a Claude fistula. After this had been done, we then closed the wounds with multilayered closure including 5-0 nylon sutures to the skin. OPERATION CARRIED OUT: Claude fistula, left wrist. Wero Terrell Jr., MD cc: Dr. James Perkins MD
[2018-11-13] MEDS: Pantoprazole 40 mg EC Tab PO SCH (09:20)
[2018-11-13] MEDS: (Novolog) Insulin Aspart, Recombinant 100 u/ml 10 ml vial SC SCH ×4 (09:21→21:59)
[2018-11-13] MEDS: Acyclovir 5% Oint (15 gm) EXT SCH ×2 (09:24→18:14)
--- NOTE | 2018-11-13 11:14 | CP.PCM.PN ---
Subjective - Date & Time of Evaluation Date of Evaluation: 11/13/18 Time of Evaluation: 09:30 - Subjective Subjective: Vascular surgery progress note for Dr. Leela Rosenthal, PGY-2 Pt seen/examined at bedside Pt reports pain in forearm over AVF creation site- instructed to ask for pain meds when she needs them. No other complaints, except poor appetite. No CP, SOB, N or V. Objective - Vital Signs/Intake and Output Vital Signs (last 24 hours): Temp Pulse Resp BP Pulse Ox 98.3 F 79 20 185/78 H 93 L 11/13/18 07:10 11/13/18 07:10 11/13/18 07:10 11/13/18 09:19 11/13/18 07:10 Intake and Output: 11/13/18 11/13/18 06:59 18:59 Intake Total 200 Balance 200 - Medications Medications: Current Medications Acetaminophen (Tylenol 325mg Tab) 650 mg PO Q6 PRN PRN Reason: Pain, moderate (4-7) Acyclovir (Zovirax 5% Oint) 1 gm EXT BID [facility] Last Admin: 11/13/18 09:24 Dose: 1 appl Amlodipine Besylate (Norvasc) 5 mg PO DAILY [facility] Last Admin: 11/12/18 10:30 Dose: Not Given Carvedilol (Coreg) 6.25 mg PO BID [facility] Last Admin: 11/13/18 09:20 Dose: 6.25 mg Dextrose (Dextrose 50% Inj) 0 ml IV STAT PRN; Protocol PRN Reason: Hypoglycemia Protocol Dextrose (Glutose 15) 0 gm PO ONCE PRN; Protocol PRN Reason: Hypoglycemia Protocol Folic Acid (Folic Acid) 1 mg PO DAILY [facility] Last Admin: 11/13/18 09:21 Dose: 1 mg Glucagon (Glucagen Diagnostic Kit) 0 mg IM STAT PRN; Protocol PRN Reason: Hypoglycemia Protocol Heparin Sodium (Porcine) (Heparin (For Dialysis)) [facility] Hydralazine HCl (Apresoline) 100 mg PO TID [facility] Last Admin: 11/13/18 09:21 Dose: 100 mg Hydralazine HCl (Apresoline) 10 mg IVP Q6H PRN PRN Reason: SBP>160 Insulin Aspart (Novolog) 0 unit SC ACHS [facility]; Protocol Last Admin: 11/13/18 09:21 Dose: Not Given Mirtazapine (Remeron) 15 mg PO HS [facility] Last Admin: 11/12/18 21:09 Dose: 15 mg Pantoprazole Sodium (Protonix Ec Tab) 40 mg PO DAILY [facility] Last Admin: 11/13/18 09:20 Dose: 40 mg Polyethylene Glycol (Miralax) 17 gm PO DAILY [facility] Rosuvastatin Calcium (Crestor) 10 mg PO HS [facility] Last Admin: 11/12/18 21:09 Dose: 10 mg Sennosides (Senokot Tab) 8.6 mg PO DAILY [facility] Tramadol HCl (Ultram) 50 mg PO TID PRN PRN Reason: Pain, severe (8-10) Last Admin: 11/13/18 09:25 Dose: 50 mg - Labs Labs: 11/12/18 07:33 11/12/18 07:33 PT 12.4 SECONDS (9.7-12.2) H 11/12/18 07:33 INR 1.1 11/12/18 07:33 APTT 37.2 SECONDS (21-34) H 11/12/18 07:33 - Constitutional Appears: Non-toxic, No Acute Distress - Head Exam Head Exam: ATRAUMATIC, NORMAL INSPECTION, NORMOCEPHALIC - Eye Exam Eye Exam: EOMI, Normal appearance - ENT Exam ENT Exam: Mucous Membranes Moist, Normal Exam - Neck Exam Neck Exam: Full ROM, Normal Inspection - Respiratory Exam Respiratory Exam: NORMAL BREATHING PATTERN. absent: Chest Wall Tenderness - Cardiovascular Exam Cardiovascular Exam: REGULAR RHYTHM, +S1, +S2 - GI/Abdominal Exam GI & Abdominal Exam: Soft. absent: Distended - Extremities Exam Additional comments: LUE forearm with dressing in place- clean/dry/intact, palpable thrill proximal to dressing 5/5 strength in right and left hands intact sensation bilaterally - Psychiatric Exam Psychiatric exam: Normal Affect, Normal Mood - Skin Skin Exam: Dry, Intact, Normal Color, Warm Assessment and Plan - Assessment and Plan (Free Text) Assessment: 63F POD#1 s/p LUE AVF creation Plan: Continue to use Permacath for HD Pt to follow up with Dr. Terrell in 1-2 weeks for LUE AVF evaluation LUE AVF currently maturing Pain control PRN Further care as per primary team No further vascular surgery intervention indicated at this time Will DW Dr. Nidhi Rosenthal, PGY-2
[2018-11-13] MEDS: POLYETHYLENE GLYCOL 3350 17 GM/Dose PACKET PO SCH (11:34)
--- NOTE | 2018-11-13 13:22 | CP.PCM.PN ---
<Tirso Lovell - Last Filed: 11/13/18 16:45> Subjective - Date & Time of Evaluation Date of Evaluation: 11/13/18 Time of Evaluation: 09:25 - Subjective Subjective: PGY1 medicine progress note for Dr. Zamora covering for Dr. Hemphill Pt seen and examined at bedside. No acute complaints. Reports no problems with left AVF except for slight soreness. Denies fevers, chills, chest pain, SOB, palpitations, abdominal pain, n/v/d, headache, dizziness, lethargy, numbness or tingling, sharp pain at permacath site, sharp pain at AVF site. Objective - Vital Signs/Intake and Output Vital Signs (last 24 hours): Temp Pulse Resp BP Pulse Ox 98.3 F 79 20 185/78 H 93 L 11/13/18 07:10 11/13/18 07:10 11/13/18 07:10 11/13/18 09:19 11/13/18 07:10 Intake and Output: 11/13/18 11/13/18 06:59 18:59 Intake Total 200 Balance 200 - Medications Medications: Current Medications Acetaminophen (Tylenol 325mg Tab) 650 mg PO Q6 PRN PRN Reason: Pain, moderate (4-7) Acyclovir (Zovirax 5% Oint) 1 gm EXT BID [facility] Last Admin: 11/13/18 09:24 Dose: 1 appl Amlodipine Besylate (Norvasc) 5 mg PO DAILY [facility] Last Admin: 11/13/18 11:22 Dose: 5 mg Carvedilol (Coreg) 6.25 mg PO BID [facility] Last Admin: 11/13/18 09:20 Dose: 6.25 mg Dextrose (Dextrose 50% Inj) 0 ml IV STAT PRN; Protocol PRN Reason: Hypoglycemia Protocol Dextrose (Glutose 15) 0 gm PO ONCE PRN; Protocol PRN Reason: Hypoglycemia Protocol Folic Acid (Folic Acid) 1 mg PO DAILY [facility] Last Admin: 11/13/18 09:21 Dose: 1 mg Glucagon (Glucagen Diagnostic Kit) 0 mg IM STAT PRN; Protocol PRN Reason: Hypoglycemia Protocol Heparin Sodium (Porcine) (Heparin (For Dialysis)) 3,700 units IVP MWF [facility] Hydralazine HCl (Apresoline) 100 mg PO TID [facility] Last Admin: 11/13/18 09:21 Dose: 100 mg Hydralazine HCl (Apresoline) 10 mg IVP Q6H PRN PRN Reason: SBP>160 Insulin Aspart (Novolog) 0 unit SC ACHS [facility]; Protocol Last Admin: 11/13/18 13:09 Dose: 2 units Mirtazapine (Remeron) 15 mg PO HS [facility] Last Admin: 11/12/18 21:09 Dose: 15 mg Pantoprazole Sodium (Protonix Ec Tab) 40 mg PO DAILY [facility] Last Admin: 11/13/18 09:20 Dose: 40 mg Polyethylene Glycol (Miralax) 17 gm PO DAILY [facility] Last Admin: 11/13/18 11:34 Dose: 17 gm Rosuvastatin Calcium (Crestor) 10 mg PO HS [facility] Last Admin: 11/12/18 21:09 Dose: 10 mg Sennosides (Senokot Tab) 8.6 mg PO DAILY [facility] Last Admin: 11/13/18 11:34 Dose: 8.6 mg Tramadol HCl (Ultram) 50 mg PO TID PRN PRN Reason: Pain, severe (8-10) Last Admin: 11/13/18 09:25 Dose: 50 mg - Labs Labs: 11/12/18 07:33 11/12/18 07:33 PT 12.4 SECONDS (9.7-12.2) H 11/12/18 07:33 INR 1.1 11/12/18 07:33 APTT 37.2 SECONDS (21-34) H 11/12/18 07:33 - Additional Findings Additional findings: - Constitutional Appears: Non-toxic, No Acute Distress - Head Exam Head Exam: ATRAUMATIC, NORMAL INSPECTION - Eye Exam Eye Exam: EOMI, Normal appearance - ENT Exam ENT Exam: Mucous Membranes Moist Additional comments: (+) left upper lip with healing ulceration and cream overlying it, no active bleeding, no active discharge. - Respiratory Exam Respiratory Exam: absent: Rales, Rhonchi, Wheezes, Respiratory Distress, Stridor, NORMAL BREATHING PATTERN - Cardiovascular Exam Cardiovascular Exam: REGULAR RHYTHM, +S1, +S2. Absent: tachycardia Additional comments: (+) right chest permacath; c/d/i; no active bleeding, no signs of acute infection, minimal soreness on palpation - GI/Abdominal Exam GI & Abdominal Exam: Normal Bowel Sounds. absent: Distended, Firm, Guarding, Soft, Tenderness Additional comments: (+) PD catheter removal site in lower abdomen with dressing; c/d/i, nontender, no signs of acute infection, no active bleeding - Extremities Exam Extremities Exam: Normal Capillary Refill. absent: Calf Tenderness, Pedal Edema Additional comments: (+) left distal radial AVF with dressing; c/d/i, palpable thrill, minimally tender, no signs of acute infection. Left hand is slighter colder to touch than the right hand, but neurovascularly intact. - Back Exam Back Exam: NORMAL INSPECTION. absent: CVA tenderness (L), CVA tenderness (R) - Neurological Exam Neurological Exam: Alert, Awake - Psychiatric Exam Psychiatric exam: Normal Affect, Normal Mood - Skin Skin Exam: Dry, Intact, Normal Color, Warm Assessment and Plan (1) ESRD on hemodialysis Assessment & Plan: Nephrology, Dr. Perkins, consulted. TTS HD schedule. Well tolerated Vascular surgery, Dr. Terrell, consulted for placement of Permacath, removal of PD catheter and AVF creation Tylenol, Ultram 50 mg PO TID for pain from permacath as per surgery team S/p first HD on 11/07/18; well tolerated S/p removal of PD catheter 11/07 S/p left distal radial AVF 11/12 Status: Acute (2) Type 2 diabetes mellitus with diabetic nephropathy Assessment & Plan: Hgb A1c is 6.1 Accuchecks MELODY BENAVIDEZ Hypoglycemia protocol Status: Chronic (3) Hypertension Assessment & Plan: Hydralazine 100 mg PO TID as per nephrology Home Losartan not started Amlodipine 5 mg PO daily Coreg 6.25 mg PO BID Hydralazine 10 mg IVP Q6H PRN SBP>160 Rosuvastatin 10 mg PO QHS Status: Acute (4) Lip ulceration Assessment & Plan: Acyclovir 5% cream BID Continue to monitor Status: Acute (5) Constipated Assessment & Plan: Sennakot daily Miralax daily Status: Acute (6) Prophylactic measure Assessment & Plan: SCDs Protonix 40 mg PO daily Case discussed with Dr. Sera Lovell PGY1 Status: Chronic <David Zamora - Last Filed: 11/13/18 17:11> Objective - Vital Signs/Intake and Output Vital Signs (last 24 hours): Temp Pulse Resp BP Pulse Ox 98 F 74 16 174/108 H 98 11/13/18 13:55 11/13/18 13:55 11/13/18 13:55 11/13/18 15:14 11/13/18 13:55 Intake and Output: 11/13/18 11/13/18 06:59 18:59 Intake Total 200 Balance 200 - Medications Medications: Current Medications Acetaminophen (Tylenol 325mg Tab) 650 mg PO Q6 PRN PRN Reason: Pain, moderate (4-7) Acyclovir (Zovirax 5% Oint) 1 gm EXT BID [facility] Last Admin: 11/13/18 09:24 Dose: 1 appl Amlodipine Besylate (Norvasc) 5 mg PO DAILY [facility] Last Admin: 11/13/18 11:22 Dose: 5 mg Carvedilol (Coreg) 12.5 mg PO BID [facility] Dextrose (Dextrose 50% Inj) 0 ml IV STAT PRN; Protocol PRN Reason: Hypoglycemia Protocol Dextrose (Glutose 15) 0 gm PO ONCE PRN; Protocol PRN Reason: Hypoglycemia Protocol Folic Acid (Folic Acid) 1 mg PO DAILY [facility] Last Admin: 11/13/18 09:21 Dose: 1 mg Glucagon (Glucagen Diagnostic Kit) 0 mg IM STAT PRN; Protocol PRN Reason: Hypoglycemia Protocol Heparin Sodium (Porcine) (Heparin (For Dialysis)) 3,700 units IVP MWF [facility] Last Admin: 11/13/18 17:08 Dose: 3,700 units Hydralazine HCl (Apresoline) 100 mg PO TID [facility] Last Admin: 11/13/18 14:57 Dose: Not Given Hydralazine HCl (Apresoline) 10 mg IVP Q6H PRN PRN Reason: SBP>160 Insulin Aspart (Novolog) 0 unit SC ACHS [facility]; Protocol Last Admin: 11/13/18 13:09 Dose: 2 units Mirtazapine (Remeron) 15 mg PO HS [facility] Last Admin: 11/12/18 21:09 Dose: 15 mg Pantoprazole Sodium (Protonix Ec Tab) 40 mg PO DAILY [facility] Last Admin: 11/13/18 09:20 Dose: 40 mg Polyethylene Glycol (Miralax) 17 gm PO DAILY [facility] Last Admin: 11/13/18 11:34 Dose: 17 gm Rosuvastatin Calcium (Crestor) 10 mg PO HS [facility] Last Admin: 11/12/18 21:09 Dose: 10 mg Sennosides (Senokot Tab) 8.6 mg PO DAILY [facility] Last Admin: 11/13/18 11:34 Dose: 8.6 mg Tramadol HCl (Ultram) 50 mg PO TID PRN PRN Reason: Pain, severe (8-10) Last Admin: 11/13/18 09:25 Dose: 50 mg - Labs Labs: 11/13/18 14:50 11/12/18 07:33 PT 12.4 SECONDS (9.7-12.2) H 11/12/18 07:33 INR 1.1 11/12/18 07:33 APTT 37.2 SECONDS (21-34) H 11/12/18 07:33 Attending/Attestation - Attestation I have personally seen and examined this patient.: Yes I have fully participated in the care of the patient.: Yes I have reviewed all pertinent clinical information, including history, physical exam and plan: Yes Notes (Text): 11/13/18 17:09 Medical attending: Patient was seen and examined by me with the certified medical technician assistant. Reviewed the above note by the resident and agree with the above The patient was not in any acute distress at this time. She yesterday went to the OR for the AVF. Inspection of the left wrist area shows warm fingers and intact sensation. There is also a auscutable thrill on exam as well. So at this time we are pending on outpatient HD placement at the moment David Zamora
--- NOTE | 2018-11-13 13:40 | CP.PCM.PN ---
Subjective - Date & Time of Evaluation Date of Evaluation: 11/13/18 Time of Evaluation: 13:37 - Subjective Subjective: seen pre dialysis feeling much better s/p AV fistula creation- has thrill BP still elevated no other complaint Objective - Vital Signs/Intake and Output Vital Signs (last 24 hours): Temp Pulse Resp BP Pulse Ox 98.3 F 79 20 185/78 H 93 L 11/13/18 07:10 11/13/18 07:10 11/13/18 07:10 11/13/18 09:19 11/13/18 07:10 Intake and Output: 11/13/18 11/13/18 06:59 18:59 Intake Total 200 Balance 200 - Medications Medications: Current Medications Acetaminophen (Tylenol 325mg Tab) 650 mg PO Q6 PRN PRN Reason: Pain, moderate (4-7) Acyclovir (Zovirax 5% Oint) 1 gm EXT BID [facility] Last Admin: 11/13/18 09:24 Dose: 1 appl Amlodipine Besylate (Norvasc) 5 mg PO DAILY [facility] Last Admin: 11/13/18 11:22 Dose: 5 mg Carvedilol (Coreg) 6.25 mg PO BID [facility] Last Admin: 11/13/18 09:20 Dose: 6.25 mg Dextrose (Dextrose 50% Inj) 0 ml IV STAT PRN; Protocol PRN Reason: Hypoglycemia Protocol Dextrose (Glutose 15) 0 gm PO ONCE PRN; Protocol PRN Reason: Hypoglycemia Protocol Folic Acid (Folic Acid) 1 mg PO DAILY [facility] Last Admin: 11/13/18 09:21 Dose: 1 mg Glucagon (Glucagen Diagnostic Kit) 0 mg IM STAT PRN; Protocol PRN Reason: Hypoglycemia Protocol Heparin Sodium (Porcine) (Heparin (For Dialysis)) 3,700 units IVP MWF [facility] Hydralazine HCl (Apresoline) 100 mg PO TID [facility] Last Admin: 11/13/18 09:21 Dose: 100 mg Hydralazine HCl (Apresoline) 10 mg IVP Q6H PRN PRN Reason: SBP>160 Insulin Aspart (Novolog) 0 unit SC ACHS [facility]; Protocol Last Admin: 11/13/18 13:09 Dose: 2 units Mirtazapine (Remeron) 15 mg PO HS [facility] Last Admin: 11/12/18 21:09 Dose: 15 mg Pantoprazole Sodium (Protonix Ec Tab) 40 mg PO DAILY [facility] Last Admin: 11/13/18 09:20 Dose: 40 mg Polyethylene Glycol (Miralax) 17 gm PO DAILY [facility] Last Admin: 11/13/18 11:34 Dose: 17 gm Rosuvastatin Calcium (Crestor) 10 mg PO HS [facility] Last Admin: 11/12/18 21:09 Dose: 10 mg Sennosides (Senokot Tab) 8.6 mg PO DAILY [facility] Last Admin: 11/13/18 11:34 Dose: 8.6 mg Tramadol HCl (Ultram) 50 mg PO TID PRN PRN Reason: Pain, severe (8-10) Last Admin: 11/13/18 09:25 Dose: 50 mg - Labs Labs: 11/12/18 07:33 11/12/18 07:33 PT 12.4 SECONDS (9.7-12.2) H 11/12/18 07:33 INR 1.1 11/12/18 07:33 APTT 37.2 SECONDS (21-34) H 11/12/18 07:33 - Constitutional Appears: No Acute Distress, Chronically Ill - Head Exam Head Exam: ATRAUMATIC, NORMAL INSPECTION - Eye Exam Eye Exam: EOMI, Normal appearance - Neck Exam Neck Exam: Normal Inspection. absent: Tenderness - Respiratory Exam Respiratory Exam: Clear to Ausculation Bilateral, NORMAL BREATHING PATTERN - Cardiovascular Exam Cardiovascular Exam: REGULAR RHYTHM, +S1 - GI/Abdominal Exam GI & Abdominal Exam: Soft. absent: Tenderness - Extremities Exam Extremities Exam: Normal Inspection. absent: Tenderness - Neurological Exam Neurological Exam: Awake. absent: CN II-XII Intact - Skin Skin Exam: Dry, Warm Assessment and Plan (1) Type 2 diabetes mellitus with diabetic nephropathy Status: Chronic (2) End stage renal disease due to benign hypertension Status: Acute (3) Uremia of renal origin Status: Acute (4) ESRD (end stage renal disease) Status: Acute - Assessment and Plan (Free Text) Plan: increase BP med dosage dialysis now HD placement
[2018-11-13 14:59] LABS: BASO % 0.5 % (0.0-2.0); EOS # 0.2 K/uL (0.0-0.7); HEMOGLOBIN 10.5 g/dL (11.0-16.0); LYMPH # 0.7 K/uL (1.0-4.3); LYMPH % 13.1 % (20.0-40.0); MEAN CELL VOLUME 89.1 fL (81.0-99.0); MEAN CORPUSCULAR HEMOGLOBIN 29.1 pg (27.0-31.0); MEAN CORPUSCULAR HGB CONC 32.7 g/dL (33.0-37.0); MEAN PLATELET VOLUME 7.7 fL (7.2-11.7); MONO # 0.6 K/uL (0.0-0.8); MONO % 10.5 % (0.0-10.0); NEUT # 4.2 K/uL (1.8-7.0); NEUT % 72.9 % (50.0-75.0); RBC 3.61 Mil/uL (3.80-5.20); RED CELL DISTRIBUTION WIDTH 17.4 % (11.5-14.5); WHITE BLOOD COUNT 5.7 K/uL (4.8-10.8)
[2018-11-13 20:14] LABS: ALBUMIN 3.3 g/dL (3.5-5.0); CALCIUM 9.1 mg/dl (8.6-10.4)
[2018-11-14] MEDS: (Novolog) Insulin Aspart, Recombinant 100 u/ml 10 ml vial SC SCH ×4 (07:56→21:57)
[2018-11-14] MEDS: Pantoprazole 40 mg EC Tab PO SCH (09:24)
[2018-11-14] MEDS: POLYETHYLENE GLYCOL 3350 17 GM/Dose PACKET PO SCH (09:29)
--- NOTE | 2018-11-14 10:00 | CP.PCM.PN ---
Subjective - Date & Time of Evaluation Date of Evaluation: 11/14/18 Time of Evaluation: 09:58 - Subjective Subjective: stable dialysis 11/13 feels much better HTN still elevated Objective - Vital Signs/Intake and Output Vital Signs (last 24 hours): Temp Pulse Resp BP Pulse Ox 98.0 F 73 20 165/84 H 95 11/14/18 08:08 11/14/18 08:08 11/14/18 08:08 11/14/18 09:24 11/14/18 08:08 - Medications Medications: Current Medications Acetaminophen (Tylenol 325mg Tab) 650 mg PO Q6 PRN PRN Reason: Pain, moderate (4-7) Acyclovir (Zovirax 5% Oint) 1 gm EXT BID [facility] Last Admin: 11/13/18 18:14 Dose: 1 appl Amlodipine Besylate (Norvasc) 5 mg PO DAILY [facility] Last Admin: 11/14/18 09:24 Dose: 5 mg Carvedilol (Coreg) 12.5 mg PO BID [facility] Last Admin: 11/14/18 09:24 Dose: 12.5 mg Dextrose (Dextrose 50% Inj) 0 ml IV STAT PRN; Protocol PRN Reason: Hypoglycemia Protocol Dextrose (Glutose 15) 0 gm PO ONCE PRN; Protocol PRN Reason: Hypoglycemia Protocol Folic Acid (Folic Acid) 1 mg PO DAILY [facility] Last Admin: 11/14/18 09:24 Dose: 1 mg Glucagon (Glucagen Diagnostic Kit) 0 mg IM STAT PRN; Protocol PRN Reason: Hypoglycemia Protocol Heparin Sodium (Porcine) (Heparin (For Dialysis)) 3,700 units IVP MWF [facility] Last Admin: 11/13/18 17:08 Dose: 3,700 units Hydralazine HCl (Apresoline) 100 mg PO TID [facility] Last Admin: 11/14/18 09:27 Dose: 100 mg Hydralazine HCl (Apresoline) 10 mg IVP Q6H PRN PRN Reason: SBP>160 Insulin Aspart (Novolog) 0 unit SC ACHS [facility]; Protocol Last Admin: 11/14/18 07:56 Dose: 2 units Mirtazapine (Remeron) 15 mg PO HS [facility] Last Admin: 11/13/18 21:54 Dose: 15 mg Pantoprazole Sodium (Protonix Ec Tab) 40 mg PO DAILY [facility] Last Admin: 11/14/18 09:24 Dose: 40 mg Polyethylene Glycol (Miralax) 17 gm PO DAILY [facility] Last Admin: 11/14/18 09:29 Dose: 17 gm Rosuvastatin Calcium (Crestor) 10 mg PO HS [facility] Last Admin: 11/13/18 21:54 Dose: 10 mg Sennosides (Senokot Tab) 8.6 mg PO DAILY [facility] Last Admin: 11/14/18 09:24 Dose: 8.6 mg Tramadol HCl (Ultram) 50 mg PO TID PRN PRN Reason: Pain, severe (8-10) Last Admin: 11/14/18 08:04 Dose: 50 mg - Labs Labs: 11/13/18 14:50 11/13/18 19:50 PT 12.4 SECONDS (9.7-12.2) H 11/12/18 07:33 INR 1.1 11/12/18 07:33 APTT 37.2 SECONDS (21-34) H 11/12/18 07:33 - Constitutional Appears: No Acute Distress, Chronically Ill - Head Exam Head Exam: ATRAUMATIC, NORMAL INSPECTION - Eye Exam Eye Exam: EOMI, Normal appearance - Neck Exam Neck Exam: Normal Inspection. absent: Tenderness - Respiratory Exam Respiratory Exam: Clear to Ausculation Bilateral, NORMAL BREATHING PATTERN - Cardiovascular Exam Cardiovascular Exam: REGULAR RHYTHM, +S1 - GI/Abdominal Exam GI & Abdominal Exam: Soft. absent: Tenderness - Extremities Exam Extremities Exam: Normal Inspection. absent: Pedal Edema - Neurological Exam Neurological Exam: Awake, CN II-XII Intact - Skin Skin Exam: Dry, Warm Assessment and Plan (1) Type 2 diabetes mellitus with diabetic nephropathy Status: Chronic (2) End stage renal disease due to benign hypertension Status: Acute (3) Uremia of renal origin Status: Acute (4) ESRD (end stage renal disease) Status: Acute - Assessment and Plan (Free Text) Plan: increase BP med dosage dialysis MWF await HD placement
[2018-11-14] MEDS: Acyclovir 5% Oint (15 gm) EXT SCH (18:10)
--- NOTE | 2018-11-15 03:45 | PN ---
DATE: 11/14/2018 SUBJECTIVE: The patient is seen today, 11/14/2018, status post placement of tunneled catheter and started on hemodialysis. OBJECTIVE: VITAL SIGNS: Blood pressure is 168/75, temperature 98, respiratory rate 20, and pulse 72. HEENT: Pupils equal and reactive to light. Normal-appearing mucosa of the conjunctivae, oropharynx, and nasal membrane mucosa. NECK: Supple. No JVD. No carotid bruit. No lymph node. The patient has a multinodular goiter. CHEST AND LUNGS: Bilateral symmetrical expansion. Good air exchange. No rales, no rhonchi. CARDIOVASCULAR SYSTEM: PMI not localized. S1, S2. No additional sounds. ABDOMEN: Normoactive bowel sounds. No tenderness. No organomegaly. No masses. EXTREMITIES: No cyanosis, no clubbing, no edema. CENTRAL NERVOUS SYSTEM: Alert, awake, oriented x2. No neurological deficit could be appreciated. ASSESSMENT: 1. End-stage renal disease, failed peritoneal dialysis and started on hemodialysis. 2. Hypertension. 3. Type 2 diabetes mellitus. PLAN: Continue current medications, and follow nephrology recommendations regarding hemodialysis. Follow social service consultation and recommendations regarding hemodialysis schedule. Kartik Hemphill MD
[2018-11-15] MEDS: (Novolog) Insulin Aspart, Recombinant 100 u/ml 10 ml vial SC SCH (08:22)
[2018-11-15] MEDS: POLYETHYLENE GLYCOL 3350 17 GM/Dose PACKET PO SCH (09:17)
[2018-11-15] MEDS: Pantoprazole 40 mg EC Tab PO SCH (09:18)
[2018-11-15] MEDS: Acyclovir 5% Oint (15 gm) EXT SCH (09:18)
--- NOTE | 2018-11-15 12:16 | CP.PCM.PN ---
Subjective - Date & Time of Evaluation Date of Evaluation: 11/15/18 Time of Evaluation: 12:15 - Subjective Subjective: seen at dialysis UF 1500ml outpt HD spot obtained feels much better BP better controlled Objective - Vital Signs/Intake and Output Vital Signs (last 24 hours): Temp Pulse Resp BP Pulse Ox 97.3 F L 75 17 152/78 H 98 11/15/18 09:05 11/15/18 09:05 11/15/18 09:05 11/15/18 12:05 11/15/18 09:05 - Medications Medications: Current Medications Acetaminophen (Tylenol 325mg Tab) 650 mg PO Q6 PRN PRN Reason: Pain, moderate (4-7) Acyclovir (Zovirax 5% Oint) 1 gm EXT BID [facility] Last Admin: 11/15/18 09:18 Dose: Not Given Amlodipine Besylate (Norvasc) 5 mg PO DAILY [facility] Last Admin: 11/15/18 09:17 Dose: Not Given Carvedilol (Coreg) 25 mg PO BID [facility] Last Admin: 11/15/18 09:17 Dose: Not Given Dextrose (Dextrose 50% Inj) 0 ml IV STAT PRN; Protocol PRN Reason: Hypoglycemia Protocol Dextrose (Glutose 15) 0 gm PO ONCE PRN; Protocol PRN Reason: Hypoglycemia Protocol Folic Acid (Folic Acid) 1 mg PO DAILY [facility] Last Admin: 11/15/18 09:17 Dose: Not Given Glucagon (Glucagen Diagnostic Kit) 0 mg IM STAT PRN; Protocol PRN Reason: Hypoglycemia Protocol Heparin Sodium (Porcine) (Heparin (For Dialysis)) 3,700 units IVP MWF [facility] Last Admin: 11/15/18 11:06 Dose: 3,700 units Hydralazine HCl (Apresoline) 100 mg PO TID [facility] Last Admin: 11/15/18 09:17 Dose: Not Given Hydralazine HCl (Apresoline) 10 mg IVP Q6H PRN PRN Reason: SBP>160 Insulin Aspart (Novolog) 0 unit SC ACHS [facility]; Protocol Last Admin: 11/15/18 08:22 Dose: Not Given Mirtazapine (Remeron) 15 mg PO HS [facility] Last Admin: 11/14/18 21:54 Dose: 15 mg Pantoprazole Sodium (Protonix Ec Tab) 40 mg PO DAILY [facility] Last Admin: 11/15/18 09:18 Dose: Not Given Polyethylene Glycol (Miralax) 17 gm PO DAILY [facility] Last Admin: 11/15/18 09:17 Dose: Not Given Rosuvastatin Calcium (Crestor) 10 mg PO HS [facility] Last Admin: 11/14/18 21:57 Dose: 10 mg Sennosides (Senokot Tab) 8.6 mg PO DAILY [facility] Last Admin: 11/15/18 09:18 Dose: Not Given Tramadol HCl (Ultram) 50 mg PO TID PRN PRN Reason: Pain, severe (8-10) Last Admin: 11/14/18 08:04 Dose: 50 mg - Labs Labs: 11/13/18 14:50 11/13/18 19:50 PT 12.4 SECONDS (9.7-12.2) H 11/12/18 07:33 INR 1.1 11/12/18 07:33 APTT 37.2 SECONDS (21-34) H 11/12/18 07:33 - Constitutional Appears: No Acute Distress, Chronically Ill - Head Exam Head Exam: ATRAUMATIC, NORMAL INSPECTION - Eye Exam Eye Exam: EOMI, Normal appearance - Neck Exam Neck Exam: absent: Tenderness - Respiratory Exam Respiratory Exam: Clear to Ausculation Bilateral, NORMAL BREATHING PATTERN - Cardiovascular Exam Cardiovascular Exam: REGULAR RHYTHM, +S1 - GI/Abdominal Exam GI & Abdominal Exam: Soft. absent: Tenderness - Extremities Exam Extremities Exam: Normal Inspection. absent: Tenderness - Neurological Exam Neurological Exam: Awake, CN II-XII Intact - Skin Skin Exam: Dry, Warm Assessment and Plan (1) Type 2 diabetes mellitus with diabetic nephropathy Status: Chronic (2) End stage renal disease due to benign hypertension Status: Acute (3) Uremia of renal origin Status: Acute (4) ESRD (end stage renal disease) Status: Acute - Assessment and Plan (Free Text) Plan: UF 1500ml now will arrange for outpatient dialysis same meds for now
[2018-11-15 12:49] VITALS: O2SAT 100
[2018-11-15 14:06] VITALS: BP 159/82; PULSE 86; RESP 20; TEMP 98.7
--- NOTE | 2018-11-15 16:37 | CP.PCM.PN ---
Subjective - Date & Time of Evaluation Date of Evaluation: 11/15/18 Time of Evaluation: 16:37 - Subjective Subjective: alert, oriented, out of bed, ambulatory, no acute distress. Objective - Vital Signs/Intake and Output Vital Signs (last 24 hours): Temp Pulse Resp BP Pulse Ox 98.7 F 86 20 159/82 H 100 11/15/18 14:05 11/15/18 14:05 11/15/18 14:05 11/15/18 14:05 11/15/18 14:05 - Labs Labs: 11/13/18 14:50 11/13/18 19:50 PT 12.4 SECONDS (9.7-12.2) H 11/12/18 07:33 INR 1.1 11/12/18 07:33 APTT 37.2 SECONDS (21-34) H 11/12/18 07:33 Assessment and Plan - Assessment and Plan (Free Text) Assessment: 63 year old female on dialysis, seen and examined. Alert and orientedx3, denies acute complaints of pain, no sob or acute distress. Has outpatient dialysis spot as per registered nurse hh case manager. Discussed with DR Hemphill, plan to discharge home today. To continue with HD , MWF, prescriptions given for new meds. Advised to follow up with PMD in 1 week.
--- NOTE | 2018-11-16 06:22 | DS ---
REASON FOR ADMISSION: This is a 63-year-old female with end-stage renal disease, was on peritoneal dialysis that was not effective anymore and the patient was severely uremic. COURSE OF HOSPITALIZATION: The patient was admitted to medical floor and she had a tunneled catheter inserted by Dr. Terrell. The patient was started on hemodialysis and uremic symptoms have improved. Through social service, the patient had a hemodialysis schedule arranged and the patient was discharged home to follow with Dr. Perkins with hemodialysis as an outpatient. FINAL DIAGNOSES: Severe uremia, end-stage renal disease, converted from peritoneal dialysis to hemodialysis, hypertension, type 2 diabetes mellitus. Kartik Hemphill MD
== END 2018-11-15 14:33 | disposition home or self-care (01) | DRG 907 ==
LOC: C.ER 10:45 → C.9E 11:11 → C.6T 13:43 → OBSVTOIN 11-07 09:31
PROVIDERS: ADMIT Internal Medicine; ATTEND Internal Medicine
PROC: 0WPG03Z Removal of Infusion Device from Peritoneal Cavity, Open Approach (ICD-10-PCS; 2018-11-07)
PROC: 06H033Z Insertion of Infusion Device into Inferior Vena Cava, Percutaneous Approach (ICD-10-PCS; 2018-11-07)
PROC: 5A1D70Z Performance of Urinary Filtration, Intermittent, Less than 6 Hours Per Day (ICD-10-PCS; 2018-11-07)
PROC: 031 Upper Arteries, Bypass (ICD-10-PCS; principal; 2018-11-12 11:30)
DX: T85.611A Breakdown (mechanical) of intraperitoneal dialysis catheter, initial encounter (principal); N18.6 End stage renal disease; I12.0 Hypertensive chronic kidney disease with stage 5 chronic kidney disease or end stage renal disease; N17.9 Acute kidney failure, unspecified; N25.81 Secondary hyperparathyroidism of renal origin; E11.21 Type 2 diabetes mellitus with diabetic nephropathy; E11.22 Type 2 diabetes mellitus with diabetic chronic kidney disease; Z99.2 Dependence on renal dialysis; E78.00 Pure hypercholesterolemia, unspecified; Z87.891 Personal history of nicotine dependence; K59.00 Constipation, unspecified; F41.9 Anxiety disorder, unspecified; E11.622 Type 2 diabetes mellitus with other skin ulcer; L98.499 Non-pressure chronic ulcer of skin of other sites with unspecified severity; D63.1 Anemia in chronic kidney disease; Z76.82 Awaiting organ transplant status